=== PATIENT | female | born 1955 | race Caucasian/White ===

== ENCOUNTER 2017-06-17 15:40 | Emergency (ER) | payer OTHER ==
[~2017-06-17] VITALS: Ht 172.7 cm; Wt 106.0 kg
[~2017-06-17 15:40] MED LIST: ASPI81TA28 PO; BACL10TA PO; LEVO100T7 PO; LISD20CA PO; LPR25 PO; MILN50TA PO; PRAV20TA PO; SUMA100T16 PO; TIZA4CAP PO; TOPI50TA16 PO; TRAZ50TA35 PO
[2017-06-17 15:47] VITALS: TEMP 37.4; Ht 172.7 cm; Wt 106.0 kg
[2017-06-17] MEDS ORDERED: PROCHLORPERAZINE 5 MG/ML 2 ML VIAL IV STA (16:27)
[2017-06-17] MEDS ORDERED: MAGNESIUM SULFATE 1GM / D5W 1 GM BAG IV STA (16:27)
[2017-06-17] MEDS ORDERED: KETOROLAC TROMETHAMINE 30 MG/ML VIAL IV STA (16:27)
[2017-06-17] MEDS ORDERED: DiphenhydrAMINE HCL 50 MG/ML VIAL IV STA (16:27)
--- NOTE | 2017-06-17 16:29 | EMERGENCY ROOM VISIT NOTE ---
History Report prepared by Gianna: Fany Reyes Under the Supervision of: Dr. Maxx Sarmiento M.D. First contact with patient: 16:18 Chief Complaint: HEADACHE Stated Complaint: HEADACHE (8 FOR PAIN) ELEVATED BP- REFERRED History of Present Illness The patient is a 61 year old female who presents to the Emergency Room with complaints of a constant headache beginning a week ago. The patient rates her headache as a 8/10. The patient states she is in the process of being evaluated of chronic migraines. The patient will be inpatient at [facility] and will staying at [facility]. She states her headache is behind her left eye. The patient had an MRI of her head done 4 days ago where they found a lesion. The patient follows up with Dr. Gracia-Neurologist at [facility]. She was seen today for a stress test and her blood pressure was high and was referred to the ED. Source of History: patient Onset: a week ago Position: head Symptom Intensity: 8/10 Quality: ache Timing: constant Review of Systems See HPI for pertinent positives & negatives. A total of 10 systems reviewed and were otherwise negative. Past Medical & Surgical Medical Problems: (1) No pertinent past medical history Family History FHx: heart disease Social History Smoking Status: Never Smoker Alcohol Use: occasionally Drug Use: none Marital Status: Housing Status: lives with significant other Occupation Status: employed Current/Historical Medications Scheduled Coenzyme Q10 (Ubidecarenone) (Coq10), 200 MG PO DAILY Levothyroxine Sodium (Levothyroxine Sodium), 1 TAB PO DAILY Lisdexamfetamine Dimesylate (Vyvanse), 20 MG PO QAM Milnacipran Hcl (Savella), 50 MG PO BID Pravastatin (Pravachol ), 20 MG PO HS Pyridoxine (Vitamin B6), 100 MG PO DAILY Riboflavin (Vitamin B-2), 200 MG PO DAILY Tizanidine (Zanaflex), 8 MG PO HS Topiramate (Topamax), 150 MG PO HS Trazodone Hcl (Trazodone), 75 MG PO HS Scheduled PRN Baclofen (Lioresal), 10 MG PO TID PRN for headache Diclofenac Sodium (Topical) (Voltaren 1% Top Gel), 1 APPLN TOP UD PRN for Pain Diphenhydramine Hcl (Benadryl Allergy), 25 MG PO UD PRN for ALLERGIES Promethazine Hcl (Phenergan), 12.5 MG PO Q6H PRN for Nausea Tramadol (Ultram), 50 MG PO Q8H PRN for Headache [Midrin], 1 TAB PO UD PRN for Headache Allergies Coded Allergies: Cephalosporins (Verified Allergy, Unknown, RASH, 08/29/15) NSAIDs (Verified Allergy, Unknown, UNKNOWN, 08/29/15) Penicillins (Verified Allergy, Unknown, RASH, 08/29/15) Pregabalin (Unverified Adverse Reaction, Intermediate, DEPRESSION, ) Physical Exam Vital Signs Date Time Temp Pulse Resp B/P (MAP) Pulse Ox O2 Delivery O2 Flow Rate FiO2 06/17/17 20:00 77 20 164/91 99 06/17/17 19:09 74 06/17/17 18:29 78 158/91 98 Room Air 06/17/17 17:04 104 20 181/83 96 Room Air 06/17/17 15:47 37.4 107 16 179/93 100 Room Air Physical Exam GENERAL: Patient is a healthy-appearing well-nourished female HEAD: Normocephalic atraumatic. No evidence of meningitis or encephalitis. EYES: Ocular movements intact pupils equal and react to light OROPHARYNX mucous membranes are moist no exudates present no erythema or edema present NECK: Supple no nuchal rigidity CHEST: Good equal expansion LUNGS: Clear and equal to auscultation CARDIAC: Normal S1 and S2 ABDOMEN: Soft nontender no guarding BACK: No CVA tenderness EXTREMITIES: No pain upon palpation normal muscle strength in all groups no clubbing cyanosis or edema NEURO: Patient is following commands and answering questions appropriately. Alert and oriented x3 Cranial Nerves 2-12 grossly intact Medical Decision & Procedures Medications Administered Medications (Trade) Dose Ordered Sig/Mandeep Route Start Time Stop Time Status Last Admin Dose Admin Ketorolac Tromethamine (Toradol Inj) 30 mg NOW STAT IV 06/17/17 16:27 06/17/17 16:28 DC 06/17/17 16:56 30 MG Prochlorperazine Edisylate (Compazine Inj) 10 mg NOW STAT IV 06/17/17 16:27 06/17/17 16:28 DC 06/17/17 16:56 10 MG Diphenhydramine HCl (Benadryl Inj) 50 mg NOW STAT IV 06/17/17 16:27 06/17/17 16:28 DC 06/17/17 16:56 50 MG Magnesium Sulfate (Magnesium Sulfate) 1 gm NOW STAT IV 06/17/17 16:27 06/17/17 16:28 DC 06/17/17 16:56 1 GM Valproate Sodium 500 mg/Dextrose 55 ml @ 55 mls/hr NOW STAT IV 06/17/17 18:05 06/17/17 19:04 DC 06/17/17 18:34 55 MLS/HR Dexamethasone Sodium Phosphate 10 mg/Syringe 2.5 ml @ 1 mls/min NOW STAT IV 06/17/17 18:05 06/17/17 18:07 DC 06/17/17 18:34 1 MLS/MIN Ondansetron HCl (Zofran Inj) 4 mg NOW STAT IV 06/17/17 18:05 06/17/17 18:06 DC 06/17/17 18:34 4 MG ED Course 1620: Past medical records reviewed. The patient was evaluated in room C6. A complete history and physical examination was performed. 1627: Magnesium Sulfate 1 gm IV, Benadryl Inj 50 mg IV, Compazine Inj 10 mg IV, Toradol Inj 30 mg IV. 1706: I reevaluated the patient, she is resting comfortably. 1805: Zofran Inj 4 mg IV, Dexamethasone Sodium Phospate 10 mg/ Syringe 2.5 ml @ 1 mls/hr IV, Valproate Sodium 500 mg/Dextrose 55 ml @ 55 mls/hr IV. 1922: Upon reexamination the patient is resting. I discussed results and treatment plan with the patient. She verbalizes agreement and understanding. The patient is ready for discharge. Medical Decision Differential diagnosis: Etiologies such as migraine headache, meningitis, sinusitis, CO exposure, ICH, SAH, infection, tumor, headache, sinus thrombosis, arterial dissection, as well as others were entertained. This is a 61-year-old female who presents emergency department for pain control. The patient has a history of chronic migraines and presents to the emergency department to get her pain under control. She is currently being worked up by a migraine clinic in [place]. I will note she has no evidence of meningitis encephalitis on examination. The patient's most recent MRI which was performed within the past week was reviewed by myself. The patient's MRI is concerning for a meningioma. I do not feel that this is contributing to the patient's pain. An IV was established, the patient was given Toradol, Compazine, Benadryl. Repeat examination revealed some improvement the patient's symptoms. As the patient was still complaining of pain she was given Decadron as well as valproic acid. The patient was much improved at this point and I feel can be safely discharged home for follow-up with her primary care physician. Patient was in agreement with the treatment plan. Blood Pressure Screening Patient's blood pressure: Elevated blood pressure Blood pressure disposition: Referred to PCP Impression Primary Impression: Headache Scribe Attestation The scribe's documentation has been prepared under my direction and personally reviewed by me in its entirety. I confirm that the note above accurately reflects all work, treatment, procedures, and medical decision making performed by me. Departure Information Dispostion Home / Self-Care Referrals Michael Bermudez D.O. (PCP) Forms HOME CARE DOCUMENTATION FORM, IMPORTANT VISIT INFORMATION Patient Instructions Headaches Tension, My [facility] Additional Instructions You were found to have an elevated blood pressure today (>120 sytolic or >90 diastolic). Per medicare guidelines, you need to follow up with this blood pressure screening with your Primary Care Physician (PCP). For a new PCP call [phone]. You have been examined and treated today on an emergency basis only. This is not a substitute for, or an effort to provide, complete comprehensive medical care. It is impossible to recognize and treat all injuries or illnesses in a single emergency department visit. It is therefore important that you follow up closely with Dr Bermudez. Call as soon as possible for an appointment. Thank you for your time and consideration. I look forward to speaking with you again soon. Please don't hesitate to call us if you have any questions. Problem Qualifiers Primary Impression: Headache Headache type: unspecified Headache chronicity pattern: unspecified pattern Intractability: not intractable Qualified Codes: R51 - Headache
[2017-06-17] MEDS ORDERED: ONDANSETRON INJ 2 MG/ML 2 ML VIAL IV STA (18:05)
[2017-06-17] MEDS ORDERED: VALPROATE SOD IV 500 MG in DEXTROSE 5% 50ML 50 ML IV STA (18:05)
[2017-06-17] MEDS ORDERED: DEXAMETHASONE INJ 10 MG in SYRINGE 0 ML IV STA (18:05)
[2017-06-17] MEDS ORDERED: TRAM-10 PO (18:11)
[2017-06-17] MEDS ORDERED: DIPH1TAB87 PO (18:11)
[2017-06-17] MEDS ORDERED: VITB2100 PO (18:11)
[2017-06-17] MEDS ORDERED: COEN1CAP7 PO (18:11)
[2017-06-17] MEDS ORDERED: PROM12.56 PO (18:11)
[2017-06-17] MEDS ORDERED: DICL1GEL12 TOP (18:11)
[2017-06-17] MEDS ORDERED: MIDRIN PO (18:11)
[2017-06-17] MEDS ORDERED: PYRI100T4 PO (18:11)
[2017-06-17 20:00] VITALS: BP 164/91; PULSE 77; O2SAT 99
== END 2017-06-17 20:09 | disposition home or self-care (01) ==
LOC: C.EDB 15:41 → C.EDC 20:09
DX: R51 Headache (principal)

== ENCOUNTER 2017-06-19 22:43 | Emergency (ER) | payer OTHER ==
[~2017-06-19] VITALS: Ht 172.7 cm; Wt 108.0 kg
[~2017-06-19 22:43] MED LIST changes: -ASPI81TA28 PO; +COEN1CAP7 PO; +DICL1GEL12 TOP; +DIPH1TAB87 PO; -LPR25 PO; +MIDRIN PO; +PROM12.56 PO; +PYRI100T4 PO; -SUMA100T16 PO; +TRAM-10 PO; +VITB2100 PO
[2017-06-19 22:50] VITALS: Ht 172.7 cm; Wt 108.0 kg
[2017-06-19] MEDS ORDERED: SODIUM CHLORIDE 0.9% 1000ML 1,000 ML IV STA (23:10)
--- NOTE | 2017-06-19 23:20 | EMERGENCY ROOM VISIT NOTE ---
History Report prepared by Gianna: Diann Watson Under the Supervision of: Dr. Maxx Sarmiento M.D. First contact with patient: 23:04 Chief Complaint: HYPOTENSION Stated Complaint: LOW BLOOD PRESSURE History of Present Illness The patient is a 61 year old female who presents to the Emergency Room with complaints of an episode of hypotension starting tonight. The patient states that she started a beta rosanna yesterday and took her last dose 3 hours ago. She states that she woke up out of her sleep and felt "out of it." The patient states that when she took her blood pressure at home it was 66/43. The patient complains of feeling fatigued. She notes that she has been eating and drinking normally. She states that she has no headache more than her normal one. Source of History: patient Onset: tonight Position: other (global) Quality: other (feeling "out of it") Timing: other (episode) Associated Symptoms: + fatigue, No headache Review of Systems See HPI for pertinent positives & negatives. A total of 10 systems reviewed and were otherwise negative. Past Medical & Surgical Medical Problems: (1) No pertinent past medical history Family History FHx: heart disease Social History Smoking Status: Never Smoker Alcohol Use: occasionally Drug Use: none Marital Status: Housing Status: lives with significant other Occupation Status: employed Current/Historical Medications Scheduled Coenzyme Q10 (Ubidecarenone) (Coq10), 200 MG PO DAILY Levothyroxine Sodium (Levothyroxine Sodium), 1 TAB PO DAILY Metoprolol Tartrate (Lopressor) (Lopressor), 25 MG PO BID Milnacipran Hcl (Savella), 50 MG PO BID Pravastatin (Pravachol ), 20 MG PO HS Pyridoxine (Vitamin B6), 100 MG PO DAILY Riboflavin (Vitamin B-2), 200 MG PO DAILY Tizanidine (Zanaflex), 8 MG PO HS Topiramate (Topamax), 150 MG PO HS Trazodone Hcl (Trazodone), 75 MG PO HS Scheduled PRN Baclofen (Lioresal), 10 MG PO TID PRN for headache Diclofenac Sodium (Topical) (Voltaren 1% Top Gel), 1 APPLN TOP UD PRN for Pain Diphenhydramine Hcl (Benadryl Allergy), 25 MG PO UD PRN for ALLERGIES Promethazine Hcl (Phenergan), 12.5 MG PO Q6H PRN for Nausea Tramadol (Ultram), 50 MG PO Q8H PRN for Headache [Midrin], 1 TAB PO UD PRN for Headache Allergies Coded Allergies: Cephalosporins (Verified Allergy, Unknown, RASH, 06/19/17) NSAIDs (Verified Allergy, Unknown, UNKNOWN, 06/19/17) Penicillins (Verified Allergy, Unknown, RASH, 06/19/17) Pregabalin (Unverified Adverse Reaction, Intermediate, DEPRESSION, ) Physical Exam Vital Signs Date Time Temp Pulse Resp B/P (MAP) Pulse Ox O2 Delivery O2 Flow Rate FiO2 06/20/17 00:47 36.8 72 18 120/70 98 Room Air 06/20/17 00:06 65 18 86/52 98 Room Air 70 102/54 80 98/54 06/19/17 23:55 36.5 64 18 80/49 98 Room Air 06/19/17 23:40 98 Room Air 06/19/17 23:40 94 Room Air 06/19/17 23:12 68 06/19/17 23:00 69 18 71/52 06/19/17 22:50 36.5 80 20 78/51 97 Room Air Physical Exam GENERAL: Patient is a healthy-appearing well-nourished HEAD: Normocephalic atraumatic EYES: Ocular movements intact pupils equal and react to light OROPHARYNX mucous membranes are moist no exudates present no erythema or edema present NECK: Supple no nuchal rigidity, no evidence of meningitis or encephalitis on exam CHEST: Good equal expansion LUNGS: Clear and equal to auscultation CARDIAC: Normal S1 and S2 ABDOMEN: Soft nontender no guarding BACK: No CVA tenderness EXTREMITIES: No pain upon palpation normal muscle strength in all groups no clubbing cyanosis or edema NEURO: Patient is following commands and answering questions appropriately. Alert and oriented x3 Cranial Nerves 2-12 grossly intact Medical Decision & Procedures Laboratory Results 06/19/17 23:08 Red Blood Count 4.35, Mean Corpuscular Volume 91.0, Mean Corpuscular Hemoglobin 29.9, Mean Corpuscular Hemoglobin Concent 32.8, Mean Platelet Volume 9.3, Neutrophils (%) (Auto) 59.7, Lymphocytes (%) (Auto) 31.8, Monocytes (%) (Auto) 5.4, Eosinophils (%) (Auto) 2.5, Basophils (%) (Auto) 0.3, Neutrophils # (Auto) 5.94, Lymphocytes # (Auto) 3.16, Monocytes # (Auto) 0.54, Eosinophils # (Auto) 0.25, Basophils # (Auto) 0.03 06/19/17 23:08 Test 06/19/17 23:08 06/19/17 23:38 06/20/17 00:44 White Blood Count 9.95 K/uL (4.8-10.8) Red Blood Count 4.35 M/uL (4.2-5.4) Hemoglobin 13.0 g/dL (12.0-16.0) Hematocrit 39.6 % (37-47) Mean Corpuscular Volume 91.0 fL (80-100) Mean Corpuscular Hemoglobin 29.9 pg (25-34) Mean Corpuscular Hemoglobin Concent 32.8 g/dl (32-36) Platelet Count 265 K/uL (130-400) Mean Platelet Volume 9.3 fL (7.4-10.4) Neutrophils (%) (Auto) 59.7 % Lymphocytes (%) (Auto) 31.8 % Monocytes (%) (Auto) 5.4 % Eosinophils (%) (Auto) 2.5 % Basophils (%) (Auto) 0.3 % Neutrophils # (Auto) 5.94 K/uL (1.4-6.5) Lymphocytes # (Auto) 3.16 K/uL (1.2-3.4) Monocytes # (Auto) 0.54 K/uL (0.11-0.59) Eosinophils # (Auto) 0.25 K/uL (0-0.5) Basophils # (Auto) 0.03 K/uL (0-0.2) RDW Standard Deviation 47.1 fL (36.4-46.3) RDW Coefficient of Variation 14.2 % (11.5-14.5) Immature Granulocyte % (Auto) 0.3 % Immature Granulocyte # (Auto) 0.03 K/uL (0.00-0.02) Anion Gap 10.0 mmol/L (3-11) Est Creatinine Clear Calc Drug Dose 79.7 ml/min Estimated GFR () 75.8 Estimated GFR (Non- 65.4 BUN/Creatinine Ratio 24.3 (10-20) Calcium Level 8.3 mg/dl (8.5-10.1) Total Bilirubin 0.1 mg/dl (0.2-1) Direct Bilirubin mg/dl (0-0.2) Aspartate Amino Transf (AST/SGOT) 17 U/L (15-37) Alanine Aminotransferase (ALT/SGPT) 25 U/L (12-78) Alkaline Phosphatase 66 U/L (45-117) Total Creatine Kinase 49 U/L (26-192) Creatine Kinase MB 1.2 ng/ml (0.5-3.6) Creatine Kinase MB Ratio 2.4 (0-3.0) Troponin I < 0.015 ng/ml (0-0.045) Total Protein 6.3 gm/dl (6.4-8.2) Albumin 3.5 gm/dl (3.4-5.0) Thyroid Stimulating Hormone (TSH) 4.920 uIu/ml (0.300-4.500) Chemistry Specimen Hemolysis Bedside Glucose 103 mg/dl (70-90) Labs reviewed by ED physician. Medications Administered Medications (Trade) Dose Ordered Sig/Mandeep Route Start Time Stop Time Status Last Admin Dose Admin Sodium Chloride 1,000 ml @ 999 mls/hr Q1H1M STAT IV 06/19/17 23:10 06/20/17 00:10 DC 06/19/17 23:30 999 MLS/HR ED Course 2306: Past medical records reviewed. The patient was evaluated in room C5. A complete history and physical examination was performed. 2310: Ordered NSS 1000 ml @ 999 mls/hr IV. Medical Decision Etiologies such as metabolic, infection, hypo/hyperglycemia, electrolyte abnormalities, cardiac sources, intracerebral event, toxicologic, neurologic, as well as others were entertained. This is a 61-year-old female who presents emergency department complaining of hypotension. The patient was recently started on beta blockers by her primary care physician yesterday and she notes that when she was started on beta blockers in the past that she also had hypotension. She is afebrile has no signs of sepsis. She denies a headache. Based on these findings the patient was given normal saline bolus. Repeat examination revealed much improvement in the patient's symptoms. The patient was feeling much better and was able tolerate by mouth fluids. Based on this finding I felt that the patient was well enough to be discharged home for follow-up with her primary care physician. Patient was in agreement with the treatment plan. Impression Primary Impression: Hypotension due to drugs Scribe Attestation The scribe's documentation has been prepared under my direction and personally reviewed by me in its entirety. I confirm that the note above accurately reflects all work, treatment, procedures, and medical decision making performed by me. Departure Information Dispostion Home / Self-Care Referrals Michael Bermudez D.O. (PCP) Patient Instructions My [facility]
[2017-06-19] MEDS ORDERED: PRAV20TA PO (23:21)
[2017-06-19] MEDS ORDERED: METO25TA56 PO (23:23)
[2017-06-19 23:38] LABS: BASO % 0.3 %; BASO ABS # 0.03 K/uL (0-0.2); COMPLETE YES; EOS % 2.5 %; HEMATOCRIT 39.6 % (37-47); IG% 0.3 %; LYMPH % 31.8 %; LYMPH ABS # 3.16 K/uL (1.2-3.4); MEAN CORPUSCULAR HEMOGLOBIN 29.9 pg (25-34); MEAN CORPUSCULAR HGB CONC 32.8 g/dl (32-36); MEAN PLATELET VOLUME 9.3 fL (7.4-10.4); MONO % 5.4 %; NEUT % 59.7 %; PLATELET COUNT 265 K/uL (130-400); RED BLOOD COUNT 4.35 M/uL (4.2-5.4); WHITE BLOOD COUNT 9.95 K/uL (4.8-10.8)
[2017-06-19 23:40] VITALS: O2SAT 98
[2017-06-20 00:37] LABS: ALKALINE PHOSPHATASE 66 U/L (45-117); ALT/SGPT 25 U/L (12-78); AST/SGOT 17 U/L (15-37); BLOOD UREA NITROGEN 22 mg/dl (7-18); BUN/CREATININE RATIO 24.3 (10-20); CALCIUM 8.3 mg/dl (8.5-10.1); CARBON DIOXIDE 21 mmol/L (21-32); CHLORIDE 110 mmol/L (98-107); CKMB/CK RATIO 2.4 (0-3.0); CREATININE 0.93 mg/dl (0.60-1.20); GLUCOSE 108 mg/dl (70-99); POTASSIUM 4.2 mmol/L (3.5-5.1); SODIUM 141 mmol/L (136-145)
[2017-06-20 00:47] VITALS: BP 120/70; PULSE 72; TEMP 36.8; O2SAT 98
[2017-06-20 01:05] LABS: URINE APPEARANCE CLEAR (CLEAR); URINE BILIRUBIN NEG (NEG); URINE COLOR DK YELLOW; URINE EPITHELIAL CELL AUTO >30 /lpf (0-5); URINE NITRITE NEG (NEG); URINE PH 5.5 (4.5-7.5); URINE SPECIFIC GRAVITY 1.024 (1.000-1.030); UROBILINOGEN NEG (NEG)
[2017-06-20 01:06] LABS: MANUAL MICROSCOPIC REQUIRED? NO; REVIEW REQ? NO
--- NOTE | 2017-06-20 07:01 | DIAGNOSTIC IMAGING REPORT ---
CHEST ONE VIEW PORTABLE CLINICAL HISTORY: 61 years-old Female presenting with Pt c/o hypotension. TECHNIQUE: Portable upright AP view of the chest was obtained. COMPARISON: CT from 08/29/2015. FINDINGS: Cardiomediastinal silhouette normal. Mild prominence of the right paratracheal region near relate to prominent SVC. Minimal linear opacity at the left lung base. Otherwise lungs and pleural spaces clear. Postsurgical changes of the left glenoid. Upper abdomen normal. IMPRESSION: 1. Minimal left basilar atelectasis or scarring. Otherwise no acute cardiopulmonary disease. Electronically signed by: Aldo Stephenson M.D. 06/20/2017 7:00 AM Dictated Date/Time: 06/20/2017 6:58 AM
== END 2017-06-20 00:53 | disposition home or self-care (01) ==
LOC: C.EDB 22:44 → C.EDC 06-20 00:53
DX: I95.2 Hypotension due to drugs (principal); T44.7X5A Adverse effect of beta-adrenoreceptor antagonists, initial encounter; Z79.899 Other long term (current) drug therapy

== ENCOUNTER 2017-08-15 08:29 | Inpatient (IN) | payer OTHER ==
[~2017-08-15] VITALS: Ht 172.7 cm; Wt 106.5 kg
[~2017-08-15 08:29] MED LIST changes: -LISD20CA PO; +METO25TA56 PO; +PROM12.529 PO; -PROM12.56 PO
--- NOTE | 2017-08-15 10:09 | EMERGENCY ROOM VISIT NOTE ---
ED Visit Note First contact with patient: 08:42 I have seen and examined this patient with Amanda Grewal and generally agree with the treatment plan as discussed. Current/Historical Medications Scheduled Coenzyme Q10 (Ubidecarenone) (Coq10), 200 MG PO DAILY Levothyroxine Sodium (Levothyroxine Sodium), 1 TAB PO DAILY Metoprolol Tartrate (Lopressor) (Lopressor), 25 MG PO BID Milnacipran Hcl (Savella), 50 MG PO BID Pravastatin (Pravachol ), 20 MG PO HS Pyridoxine (Vitamin B6), 100 MG PO DAILY Riboflavin (Vitamin B-2), 200 MG PO DAILY Tizanidine (Zanaflex), 8 MG PO HS Topiramate (Topamax), 150 MG PO HS Trazodone Hcl (Trazodone), 75 MG PO HS Scheduled PRN Baclofen (Lioresal), 10 MG PO TID PRN for headache Diclofenac Sodium (Topical) (Voltaren 1% Top Gel), 1 APPLN TOP UD PRN for Pain Diphenhydramine Hcl (Benadryl Allergy), 25 MG PO UD PRN for ALLERGIES Promethazine Hcl (Phenergan), 12.5 MG PO Q6H PRN for Nausea Tramadol (Ultram), 50 MG PO Q8H PRN for Headache [Midrin], 1 TAB PO UD PRN for Headache Allergies Coded Allergies: Cephalosporins (Verified Allergy, Unknown, RASH, 08/15/17) NSAIDs (Verified Allergy, Unknown, UNKNOWN, 08/15/17) Penicillins (Verified Allergy, Unknown, RASH, 08/15/17) Pregabalin (Unverified Adverse Reaction, Intermediate, DEPRESSION, 08/15/17 ) Vital Signs Date Time Temp Pulse Resp B/P (MAP) Pulse Ox O2 Delivery O2 Flow Rate FiO2 08/15/17 08:32 37.2 98 18 184/101 99 Laboratory Results Test 08/15/17 09:14 08/15/17 09:35 Creatine Kinase MB Ratio (0-3.0) Departure Information Referrals Michael Bermudez D.O. (PCP) Patient Instructions My [facility]
[2017-08-15 10:29] LABS: CALCIUM 9.2 mg/dl (8.5-10.1); CREATININE 1.08 mg/dl (0.60-1.20); POTASSIUM 4.1 mmol/L (3.5-5.1)
--- NOTE | 2017-08-15 11:25 | DIAGNOSTIC IMAGING REPORT ---
RIGHT UPPER EXTREMITY VENOUS DOPPLER ULTRASOUND CLINICAL HISTORY: Right upper arm swelling. COMPARISON STUDY: No previous studies for comparison. TECHNIQUE: Sonography of the deep venous system of the right upper extremity was performed. FINDINGS: There is thrombus within the right subclavian, cephalic, axial, basilic and brachial veins. Visualized portions of the right internal jugular vein were patent. The right radial vein was patent. Right ulnar vein was not visualized. There was right upper extremity edema. IMPRESSION: Extensive deep venous thrombus within the right subclavian, axillary and brachial veins with superficial thrombus within the right cephalic and basilic veins. Electronically signed by: Galen Calle M.D. 08/15/2017 11:23 AM Dictated Date/Time: 08/15/2017 11:20 AM
[2017-08-15 11:43] LABS: BASO % 0.5 %; BASO ABS # 0.04 K/uL (0-0.2); EOS % 3.4 %; EOS ABS # 0.28 K/uL (0-0.5); HEMATOCRIT 40.4 % (37-47); HEMOGLOBIN 13.4 g/dL (12.0-16.0); IG# 0.03 K/uL (0.00-0.02); LYMPH % 20.6 %; LYMPH ABS # 1.71 K/uL (1.2-3.4); MEAN CELL VOLUME 90.8 fL (80-100); MEAN CORPUSCULAR HEMOGLOBIN 30.1 pg (25-34); MEAN CORPUSCULAR HGB CONC 33.2 g/dl (32-36); MEAN PLATELET VOLUME 9.4 fL (7.4-10.4); MONO % 9.8 %; MONO ABS # 0.81 K/uL (0.11-0.59); NEUT % 65.3 %; NEUT ABS # 5.43 K/uL (1.4-6.5); PLATELET COUNT 232 K/uL (130-400); RED CELL DISTRIBUTION WIDTH CV 13.9 % (11.5-14.5); RED CELL DISTRIBUTION WIDTH SD 45.9 fL (36.4-46.3)
[2017-08-15 11:45] LABS: PTT PATIENT 31.3 SECONDS (21.0-31.0)
[2017-08-15] MEDS ORDERED: HEPARIN SOD (PORCINE) 1000 UNIT/ML 10 ML VIAL IV ONE (12:00)
[2017-08-15] MEDS: HEPARIN 25,000 UNIT/500ML D5W 500 ML IV PRN (12:10)
[2017-08-15] MEDS ORDERED: CAND1TAB17 PO (12:49)
[2017-08-15] MEDS ORDERED: DIHY1INJ2 IM (12:49)
[2017-08-15] MEDS ORDERED: METO-157 PO (12:52)
[2017-08-15] MEDS ORDERED: MXT150 PO ×2 (12:56→12:58)
[2017-08-15] MEDS ORDERED: KETAMINE INTNAS (13:07)
[2017-08-15] MEDS ORDERED: CHOLCAP4 PO (13:07)
[2017-08-15] MEDS ORDERED: APIX1TAB3 PO (13:10)
[2017-08-15] MEDS ORDERED: ACETAMINOPHEN 325 MG TAB PO PRN (13:15)
[2017-08-15] MEDS ORDERED: MIDRIN PO PRN (13:15)
[2017-08-15] MEDS ORDERED: BACLOFEN 10 MG TAB PO PRN (13:15)
[2017-08-15] MEDS ORDERED: ONDANSETRON INJ 2 MG/ML 2 ML VIAL IV PRN (13:15)
[2017-08-15] MEDS ORDERED: MAGNESIUM HYDROXIDE SUSP 30 ML UDC PO PRN (13:15)
[2017-08-15] MEDS ORDERED: TRAMADOL HCL 50 MG TAB PO PRN (13:15)
[2017-08-15] MEDS ORDERED: PROMETHAZINE HCL 25 MG TAB PO PRN (13:15)
[2017-08-15] MEDS ORDERED: ALUMINUM/MAGNESIUM/SIMETH (MAALOX MAX) 30 ML UDC PO PRN (13:15)
--- NOTE | 2017-08-15 13:44 | History and Physical ---
History & Physical Date & Time of Service: Aug 15, 2017 at 13:12 Chief Complaint: R Hand/Arm Possible Blood Clot Dr Referred Primary Care Physician: Michael Bermudez D.O. History of Present Illness Source: patient, family, clinic records This is a 61 year old female with a PMH of migraines, fibromyalgia, hypothyroidism, depression/anxiety, chronic fatigue syndrome - presents with an acute DVT in RUE. She states that she was at a migraine clinic - inpatient for five days. At the clinic, they were trying IV DHEA, IV lidocaine, IV magnesium amongst other medications for her chronic migraines. Due to all these IV medications, she had a PICC line placed for the five days she was there. She had this removed prior to discharge and was doing well until yesterday, when she developed RUE swelling, and pain. [facility] [place] [facility] RUE U/S performed showing an acute DVT in the basilar, brachial, axillary and subclavian veins. She was given Eliquis and discharged. She comes to the ER today due to worsening pain and worsening swelling/erythema. Denies fevers/ chills. Denies chest pain/shortness of breath. No other acute issues to note. U/S was performed here - showing progressive DVTs in the RUE. Family History FHx: heart disease Social History Smoking Status: Never Smoker Drug Use: none Marital Status: Occupational Status: employed Allergies Coded Allergies: Cephalosporins (Verified Allergy, Unknown, RASH, 08/15/17) NSAIDs (Verified Allergy, Unknown, UNKNOWN, 08/15/17) Penicillins (Verified Allergy, Unknown, RASH, 08/15/17) Pregabalin (Unverified Adverse Reaction, Intermediate, DEPRESSION, 08/15/17 ) Home Medications Scheduled Apixaban (Eliquis), 10 MG PO BID Candesartan Cilexetil (Candesartan Cilexetil), 4 MG PO DAILY Cholecalciferol (Maximum D3), 1 CAP PO DAILY Coenzyme Q10 (Ubidecarenone) (Coq10), 200 MG PO DAILY Levothyroxine Sodium (Levothyroxine Sodium), 1 TAB PO DAILY Metoprolol Tartrate (Lopressor) (Lopressor), 25 MG PO BID Mexiletine Hcl (Mexiletine Hcl), 150 MG PO BID Mexiletine Hcl (Mexiletine Hcl), 150 MG PO TID Milnacipran Hcl (Savella), 50 MG PO BID Pravastatin (Pravachol ), 20 MG PO HS Pyridoxine (Vitamin B6), 100 MG PO DAILY Riboflavin (Vitamin B-2), 200 MG PO DAILY Tizanidine (Zanaflex), 8 MG PO HS Topiramate (Topamax), 150 MG PO HS Trazodone Hcl (Trazodone), 75 MG PO HS Scheduled PRN Baclofen (Lioresal), 10 MG PO BID PRN for headache Diclofenac Sodium (Topical) (Voltaren 1% Top Gel), 1 APPLN TOP UD PRN for Pain Dihydroergotamine Mesylate (Dihydroergotamine Mesylat), 1 MG IM UD PRN for Headache Diphenhydramine Hcl (Benadryl Allergy), 25 MG PO UD PRN for ALLERGIES Metoclopramide (Reglan), 10 MG PO TID PRN for Headache Promethazine Hcl (Phenergan), 12.5 MG PO Q6H PRN for Nausea Tramadol (Ultram), 50 MG PO Q8H PRN for Headache [Midrin], 1 TAB PO UD PRN for Headache [ketamine nasal spray], 1 SPRAY INTNAS UD PRN for Headache Review of Systems Constitutional: No fever, No chills, No weakness Eyes: No worsening of vision ENT: No hearing loss Respiratory: No cough, No sputum, No wheezing, No shortness of breath, No dyspnea on exertion, No dyspnea at rest, No hemoptysis Cardiovascular: No chest pain, No orthopnea, No edema, No palpitations Abdomen: No pain, No nausea, No vomiting, No diarrhea, No constipation, No GI bleeding Musculoskeletal: + joint pain, + muscle pain, + swelling (RUE) Genitourinary - Female: No dysuria, No urinary frequency, No urinary urgency, No urinary incontinence, No urinary retention Neurologic: No weakness, No numbness/tingling, No vertigo Psychiatric: No depression symptoms, No anxiety, No insomnia Hematologic / Lymphatic: No abnormal bleeding/bruising Integumentary: + new/changing skin lesions (redness - RUE), No rash Allergic / Immunologic: No environmental allergies, No seasonal allergies Physical Exam Vital Signs Date Time Temp Pulse Resp B/P (MAP) Pulse Ox O2 Delivery O2 Flow Rate FiO2 08/15/17 12:01 82 08/15/17 11:50 83 20 139/71 100 Room Air 08/15/17 08:32 37.2 98 18 184/101 99 General Appearance: no apparent distress Head: normocephalic, atraumatic Eyes: normal inspection ENT: hearing grossly normal Neck: supple Respiratory/Chest: chest non-tender, lungs clear, normal breath sounds, no respiratory distress, no accessory muscle use Cardiovascular: regular rate, rhythm, no gallop, no JVD, normal peripheral pulses, + systolic murmur Abdomen/GI: normal bowel sounds, non tender, soft Extremities/Musculoskelatal: no pedal edema, + pertinent finding (RUE, swelling , erythema, edema noted in the medial portion of the R elbow below the PICC line site) Neurologic/Psych: assistant editor 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, no motor/sensory deficits, alert, normal mood/affect, oriented x 3 Diagnostics Laboratory Results Results Past 24 Hours Test 08/15/17 09:35 Range/Units White Blood Count 8.30 4.8-10.8 K/uL Red Blood Count 4.45 4.2-5.4 M/uL Hemoglobin 13.4 12.0-16.0 g/dL Hematocrit 40.4 37-47 % Mean Corpuscular Volume 90.8 80-100 fL Mean Corpuscular Hemoglobin 30.1 25-34 pg Mean Corpuscular Hemoglobin Concent 33.2 32-36 g/dl Platelet Count 232 130-400 K/uL Mean Platelet Volume 9.4 7.4-10.4 fL Neutrophils (%) (Auto) 65.3 % Lymphocytes (%) (Auto) 20.6 % Monocytes (%) (Auto) 9.8 % Eosinophils (%) (Auto) 3.4 % Basophils (%) (Auto) 0.5 % Neutrophils # (Auto) 5.43 1.4-6.5 K/uL Lymphocytes # (Auto) 1.71 1.2-3.4 K/uL Monocytes # (Auto) 0.81 0.11-0.59 K/uL Eosinophils # (Auto) 0.28 0-0.5 K/uL Basophils # (Auto) 0.04 0-0.2 K/uL RDW Standard Deviation 45.9 36.4-46.3 fL RDW Coefficient of Variation 13.9 11.5-14.5 % Immature Granulocyte % (Auto) 0.4 % Immature Granulocyte # (Auto) 0.03 0.00-0.02 K/uL Prothrombin Time 10.8 9.0-12.0 SECONDS Prothromb Time International Ratio 1.0 0.9-1.1 Activated Partial Thromboplast Time 31.3 21.0-31.0 SECONDS Partial Thromboplastin Ratio 1.2 Sodium Level 138 136-145 mmol/L Potassium Level 4.1 3.5-5.1 mmol/L Chloride Level 107 98-107 mmol/L Carbon Dioxide Level 23 21-32 mmol/L Anion Gap 8.0 3-11 mmol/L Blood Urea Nitrogen 13 7-18 mg/dl Creatinine 1.08 0.60-1.20 mg/dl Est Creatinine Clear Calc Drug Dose 68.4 ml/min Estimated GFR () 63.3 Estimated GFR (Non- 54.6 BUN/Creatinine Ratio 12.0 10-20 Random Glucose 103 70-99 mg/dl Calcium Level 9.2 8.5-10.1 mg/dl Total Creatine Kinase 62 26-192 U/L Creatine Kinase MB 1.0 0.5-3.6 ng/ml Creatine Kinase MB Ratio 1.6 0-3.0 Microbiology Results 08/15/17 Blood Culture, Ordered Pending 08/15/17 Blood Culture, Ordered Pending Diagnostic Radiology RIGHT UPPER EXTREMITY VENOUS DOPPLER ULTRASOUND CLINICAL HISTORY: Right upper arm swelling. COMPARISON STUDY: No previous studies for comparison. TECHNIQUE: Sonography of the deep venous system of the right upper extremity was performed. FINDINGS: There is thrombus within the right subclavian, cephalic, axial, basilic and brachial veins. Visualized portions of the right internal jugular vein were patent. The right radial vein was patent. Right ulnar vein was not visualized. There was right upper extremity edema. IMPRESSION: Extensive deep venous thrombus within the right subclavian, axillary and brachial veins with superficial thrombus within the right cephalic and basilic veins. Impression Assessment and Plan This is a 61 year old female with a PMH of migraines, fibromyalgia, hypothyroidism, depression/anxiety, chronic fatigue syndrome - presents with an acute DVT in RUE. Acute R Upper Extremity DVT patient received 10mg of Eliqius on 08/14 PM and 08/15 AM returned due to worsening pain and swelling Repeat Doppler today suggests progression of DVT started on IV heparin which we can continue; possibly back to Eliquis in AM oral tramadol for pain (try to minimize opioid use due to rebound migraines) Cellulitis secondary to Superficial Thrombophlebitis of the R Upper Extremity Doppler suggests superficial thrombus within the right cephalic and basilic veins appears warm and tender to palpation likely cellulitis of the thrombophlebitis either way, we will check blood cultures x2 start IV Vanco for now (PCN and cephalosporin allergy noted) Migraines patient is on a new regimen for migraines, which we can continue will need to bring in a lot of medications from home; pharmacy aware HTN patient states she is too sensitive to b-blockers metoprolol discontinued by patient at home we'll try low dose amlodipine for blood pressure and some migraine prophylaxis Hypothyroidism continue Synthroid 100mcg DVT ppx IV heparin for acute DVT FULL CODE
[2017-08-15] MEDS ORDERED: NON-FORMULARY MEDICATION (Mexiletine Hcl 150 MG) PO SCH (14:00)
[2017-08-15] MEDS ORDERED: VANCOMYCIN CONSULT ACTIVE PRN (14:45)
[2017-08-15] MEDS ORDERED: VANCOMYCIN INJ 2,500 MG in SODIUM CHLORIDE 0.9% 250ML 250 ML IV ONE (14:45)
--- NOTE | 2017-08-15 14:56 | Pharmacy Progress Note ---
Pharmacy Abx Initial Consult Date of Service Aug 15, 2017. Pharmacy Dosing Scope Date of Consult: 08/15/17 Consultation requested by: Dr. Huber Pharmacy is consulted to initiate Vancomycin IV dosing therapy, order appropriate labs and adjust drug dose/frequency. Subjective The patient is a 61 year old female admitted on Aug 15, 2017 at 13:12. Objective Height (Feet): 5 Height (Inches): 8.00 Weight (Kilograms): 107.400 Vital Signs (Past 12Hrs) Vital Signs Past 12 Hours Date Time Temp Pulse Resp B/P (MAP) Pulse Ox O2 Delivery O2 Flow Rate FiO2 08/15/17 13:48 87 15 152/87 99 Room Air 08/15/17 12:01 82 08/15/17 11:50 83 20 139/71 100 Room Air 08/15/17 08:32 37.2 98 18 184/101 99 Lab Results (24Hrs) Laboratory Tests (24 Hours) Test 08/15/17 09:35 White Blood Count 8.30 K/uL (4.8-10.8) Red Blood Count 4.45 M/uL (4.2-5.4) Hemoglobin 13.4 g/dL (12.0-16.0) Hematocrit 40.4 % (37-47) Mean Corpuscular Volume 90.8 fL (80-100) Mean Corpuscular Hemoglobin 30.1 pg (25-34) Mean Corpuscular Hemoglobin Concent 33.2 g/dl (32-36) Platelet Count 232 K/uL (130-400) Mean Platelet Volume 9.4 fL (7.4-10.4) Neutrophils (%) (Auto) 65.3 % Lymphocytes (%) (Auto) 20.6 % Monocytes (%) (Auto) 9.8 % Eosinophils (%) (Auto) 3.4 % Basophils (%) (Auto) 0.5 % Neutrophils # (Auto) 5.43 K/uL (1.4-6.5) Lymphocytes # (Auto) 1.71 K/uL (1.2-3.4) Monocytes # (Auto) 0.81 K/uL (0.11-0.59) H Eosinophils # (Auto) 0.28 K/uL (0-0.5) Basophils # (Auto) 0.04 K/uL (0-0.2) Total Creatine Kinase 62 U/L (26-192) Micro Results Date/Time Source Procedure Growth Status 08/15/17 12:31 Blood Blood Culture Pending Ordered 118 12:31 Blood Blood Culture Pending Ordered Assessment & Plan Assessment 61 year old female admitted with cellulitis secondary to superficial thrombophlebitis of RUE. Pt reports h/o rash with penicillins and cephalosporins. Plan Vancomycin IV * Loading dose: 2500 mg (23.2 mg/kg) * Maintenance dose: 1500 mg IV (14 mg/kg) every 12 hours * Goal trough level for cellulitis : 15 to 20 mcg/mL Pharmacy will continue to follow and will adjust dose/frequency as necessary. Thank you.
[2017-08-15] MEDS ORDERED: VANCOMYCIN INJ 2,500 MG in SODIUM CHLORIDE 0.9% 500ML 500 ML IV ONE (15:00)
[2017-08-15 15:05] VITALS: BP 152/87; PULSE 74; TEMP 37.2; Ht 172.7 cm; Wt 106.5 kg
[2017-08-15 15:07] VITALS: BP 169/80; PULSE 101; TEMP 36.6; O2SAT 97
[2017-08-15] MEDS ORDERED: VANCOMYCIN TROUGH ONE (15:30)
[2017-08-15 18:40] LABS: PTT PATIENT 47.9 SECONDS (21.0-31.0)
[2017-08-15] MEDS ORDERED: [UNRECOGNIZED DRUG - OTHER] PRN (18:45)
[2017-08-15] MEDS: MEXILETINE HCL 150 MG CAP PO SCH (21:00)
[2017-08-15] MEDS ORDERED: METOPROLOL TARTRATE 25 MG TAB PO SCH (21:00)
[2017-08-15] MEDS: MILNACIPRAN HCL 50 MG PO SCH (21:00)
[2017-08-15] MEDS: PRAVASTATIN SOD 20 MG TAB PO SCH (21:07)
[2017-08-15] MEDS: TOPIRAMATE 100 MG TAB PO SCH (21:08)
[2017-08-15] MEDS: TRAZODONE HCL 50 MG TAB PO SCH (21:09)
[2017-08-15 22:27] VITALS: BP 142/81; PULSE 88; TEMP 37.2; O2SAT 96
[2017-08-15 22:59] VITALS: BP 96/60; PULSE 81; TEMP 36.5; O2SAT 96
[2017-08-16] MEDS ORDERED: VANCOMYCIN INJ 1,500 MG in SODIUM CHLORIDE 0.9% 500ML 500 ML IV SCH (04:00)
[2017-08-16] MEDS: HEPARIN 25,000 UNIT/500ML D5W 500 ML IV PRN ×4 (04:36→23:48)
[2017-08-16] MEDS: LEVOTHYROXINE 100 MCG TAB PO SCH (04:36)
[2017-08-16 08:02] VITALS: BP 155/89; PULSE 81; TEMP 36.7; O2SAT 99
[2017-08-16] MEDS: MEXILETINE HCL 150 MG CAP PO SCH ×2 (08:33→20:29)
[2017-08-16] MEDS: AMLODIPINE BESYLATE 5 MG TAB PO SCH ×3 (08:34→09:00)
[2017-08-16] MEDS: MILNACIPRAN HCL 50 MG PO SCH ×2 (08:34→20:21)
[2017-08-16] MEDS: CHOLECALCIFEROL 1000 INTER.UNIT TAB PO SCH (08:35)
[2017-08-16 08:40] LABS: HEMATOCRIT 39.7 % (37-47); HEMOGLOBIN 13.2 g/dL (12.0-16.0); MEAN CELL VOLUME 91.1 fL (80-100); MEAN CORPUSCULAR HEMOGLOBIN 30.3 pg (25-34); MEAN CORPUSCULAR HGB CONC 33.2 g/dl (32-36); MEAN PLATELET VOLUME 9.1 fL (7.4-10.4); PLATELET COUNT 205 K/uL (130-400); RED CELL DISTRIBUTION WIDTH CV 13.9 % (11.5-14.5); RED CELL DISTRIBUTION WIDTH SD 45.8 fL (36.4-46.3); WHITE BLOOD COUNT 7.51 K/uL (4.8-10.8)
[2017-08-16] MEDS ORDERED: NON-FORMULARY MEDICATION (Riboflavin (Vitamin B-2) 200 MG) PO SCH (09:00)
[2017-08-16] MEDS ORDERED: NON-FORMULARY MEDICATION (Coenzyme Q10 (Ubidecarenone) (Coq10) 200 MG) PO SCH (09:00)
[2017-08-16] MEDS ORDERED: PYRIDOXINE HCL 50 MG TAB PO SCH (09:00)
[2017-08-16 09:05] LABS: PTT PATIENT 73.7 SECONDS (21.0-31.0)
[2017-08-16 09:10] LABS: CALCIUM 8.8 mg/dl (8.5-10.1); CREATININE 0.94 mg/dl (0.60-1.20); POTASSIUM 3.7 mmol/L (3.5-5.1)
[2017-08-16 15:34] VITALS: BP 184/91; PULSE 91; TEMP 37.2; O2SAT 95
[2017-08-16 15:40] VITALS: O2SAT 95
--- NOTE | 2017-08-16 15:49 | Progress Note ---
Internal Med Progress Note Date of Service: Aug 16, 2017. Provider Documentation: SUBJECTIVE: The patient was seen and examined Admitted with worsening thrombosis of the right UE Has associated Phlebitis A little better OBJECTIVE: Vital Signs-as noted below Exam: General-No distress at rest Very anxious Eyes-normal ENT-normal Neck-supple Lungs-Clear to ausucltate bilaterally Heart-Regular,no murmur Abdomen-Benign,no masses,bowel sound present Extremities-No edema Right UE is swollen with minimal redness and tenderness along the medial aspect of the arm Neuro-AAOx3 Lab data as noted below. ASSESSMENT & PLAN: This is a 61 year old female with a PMH of migraines, fibromyalgia, hypothyroidism, depression/anxiety, chronic fatigue syndrome - presents with an acute DVT in RUE. Acute R Upper Extremity DVT patient received 10mg of Eliqius on 08/14 PM and 08/15 AM Repeat Doppler today suggests progression of DVT started on IV heparin oral tramadol for pain (try to minimize opioid use due to rebound migraines) Very anxious to have Eliquis without having any antidote Wants to take Coumadin -will discuss with her and decide Superficial Thrombophlebitis of the R Upper Extremity Doppler suggests superficial thrombus within the right cephalic and basilic veins appears warm and tender to palpation likely cellulitis of the thrombophlebitis either way, we will check blood cultures x2 start IV Vanco for now (PCN and cephalosporin allergy noted) D/C Vanco Anti-inflammatory will be helpful and clinically better Migraines patient is on a new regimen for migraines, which we can continue will need to bring in a lot of medications from home; pharmacy aware HTN Anxiety is contributing to increase BP patient states she is too sensitive to b-blockers we'll try low dose amlodipine for blood pressure and some migraine prophylaxis if bp is persistently high will start medication Hypothyroidism continue Synthroid 100mcg DVT ppx IV heparin for acute DVT FULL CODE Vital Signs: Date Time Temp Pulse Resp B/P (MAP) Pulse Ox O2 Delivery O2 Flow Rate FiO2 08/16/17 15:34 37.2 91 19 184/91 (122) 95 Room Air 08/16/17 08:02 36.7 81 19 155/89 (111) 99 Room Air 08/16/17 07:55 Room Air 08/16/17 00:00 Room Air 1/12/18 22:27 37.2 88 18 142/81 (101) 96 Room Air Lab Results: Results Past 24 Hours Test 08/15/17 18:09 08/16/17 08:30 08/16/17 15:36 Range/Units Activated Partial Thromboplast Time 47.9 73.7 21.0-31.0 SECONDS Partial Thromboplastin Ratio 1.8 2.8 White Blood Count 7.51 4.8-10.8 K/uL Red Blood Count 4.36 4.2-5.4 M/uL Hemoglobin 13.2 12.0-16.0 g/dL Hematocrit 39.7 37-47 % Mean Corpuscular Volume 91.1 80-100 fL Mean Corpuscular Hemoglobin 30.3 25-34 pg Mean Corpuscular Hemoglobin Concent 33.2 32-36 g/dl RDW Standard Deviation 45.8 36.4-46.3 fL RDW Coefficient of Variation 13.9 11.5-14.5 % Platelet Count 205 130-400 K/uL Mean Platelet Volume 9.1 7.4-10.4 fL Prothrombin Time 10.7 9.0-12.0 SECONDS Prothromb Time International Ratio 1.0 0.9-1.1 Sodium Level 140 136-145 mmol/L Potassium Level 3.7 3.5-5.1 mmol/L Chloride Level 110 98-107 mmol/L Carbon Dioxide Level 21 21-32 mmol/L Anion Gap 9.0 3-11 mmol/L Blood Urea Nitrogen 13 7-18 mg/dl Creatinine 0.94 0.60-1.20 mg/dl Est Creatinine Clear Calc Drug Dose 78.3 ml/min Estimated GFR () 74.8 Estimated GFR (Non- 64.6 BUN/Creatinine Ratio 13.4 10-20 Random Glucose 134 70-99 mg/dl Calcium Level 8.8 8.5-10.1 mg/dl Magnesium Level 2.1 1.8-2.4 mg/dl
[2017-08-16] MEDS: PRAVASTATIN SOD 20 MG TAB PO SCH (20:20)
[2017-08-16] MEDS: TOPIRAMATE 100 MG TAB PO SCH (20:22)
[2017-08-16] MEDS: TRAZODONE HCL 50 MG TAB PO SCH (20:26)
[2017-08-16 22:59] VITALS: BP 96/60; PULSE 81; TEMP 36.5; O2SAT 96
[2017-08-17] MEDS: LEVOTHYROXINE 100 MCG TAB PO SCH (05:59)
[2017-08-17 08:02] VITALS: BP 145/85; PULSE 77; TEMP 36.9; O2SAT 99
[2017-08-17] MEDS: MEXILETINE HCL 150 MG CAP PO SCH ×2 (08:41→14:10)
[2017-08-17] MEDS: AMLODIPINE BESYLATE 5 MG TAB PO SCH (08:42)
[2017-08-17] MEDS: MILNACIPRAN HCL 50 MG PO SCH (08:42)
[2017-08-17] MEDS: CHOLECALCIFEROL 1000 INTER.UNIT TAB PO SCH (08:43)
[2017-08-17 09:47] LABS: HEMATOCRIT 40.8 % (37-47); HEMOGLOBIN 13.6 g/dL (12.0-16.0); MEAN CELL VOLUME 89.9 fL (80-100); MEAN PLATELET VOLUME 9.1 fL (7.4-10.4); PLATELET COUNT 200 K/uL (130-400); RED CELL DISTRIBUTION WIDTH CV 13.6 % (11.5-14.5); RED CELL DISTRIBUTION WIDTH SD 44.9 fL (36.4-46.3); WHITE BLOOD COUNT 8.66 K/uL (4.8-10.8)
[2017-08-17 09:49] LABS: MEAN CORPUSCULAR HGB CONC 33.3 g/dl (32-36)
[2017-08-17 10:07] LABS: PTT PATIENT 65.6 SECONDS (21.0-31.0)
[2017-08-17 10:16] LABS: CALCIUM 9.1 mg/dl (8.5-10.1); CREATININE 0.94 mg/dl (0.60-1.20); POTASSIUM 3.9 mmol/L (3.5-5.1)
[2017-08-17 12:19] LABS: ALBUMIN 3.4 gm/dl (3.4-5.0); ALKALINE PHOSPHATASE 79 U/L (45-117); ALT/SGPT 22 U/L (12-78); AST/SGOT 14 U/L (15-37); TOTAL PROTEIN 6.8 gm/dl (6.4-8.2)
--- NOTE | 2017-08-17 14:07 | Progress Note ---
Internal Med Progress Note Date of Service: Aug 17, 2017. Provider Documentation: SUBJECTIVE: The patient was seen and examined Admitted with worsening thrombosis of the right UE Has associated Phlebitis Right Upper Extremity is much better Swelling and Pain are better Decided to take Pradaxa OBJECTIVE: Vital Signs-as noted below Exam: General-No distress at rest Very anxious Eyes-normal ENT-normal Neck-supple Lungs-Clear to ausucltate bilaterally Heart-Regular,no murmur Abdomen-Benign,no masses,bowel sound present Extremities-No edema Right UE is swollen with minimal redness and tenderness along the medial aspect of the arm -much improved Neuro-AAOx3 Lab data as noted below. ASSESSMENT & PLAN: This is a 61 year old female with a PMH of migraines, fibromyalgia, hypothyroidism, depression/anxiety, chronic fatigue syndrome - presents with an acute DVT in RUE. Acute R Upper Extremity DVT-Likely provoked patient received 10mg of Eliqius on 11 PM and 08/15 AM Repeat Doppler today suggests progression of DVT started on IV heparin oral tramadol for pain (try to minimize opioid use due to rebound migraines) Very anxious to have Eliquis without having any antidote Wants to take Coumadin -will discuss with her and decide Decided to take Pradaxa Case discussed with Dr Rivera and the Pharmacist and the patient in detailed Side effects porphine and risk associated with bleeding discussed in detailed Patient agrees to continue with Pradaxa Given the extensiveness of the clot -Hypercoagulable w/p sent Superficial Thrombophlebitis of the R Upper Extremity Doppler suggests superficial thrombus within the right cephalic and basilic veins appears warm and tender to palpation likely cellulitis of the thrombophlebitis either way, we will check blood cultures x2 start IV Vanco for now (PCN and cephalosporin allergy noted) D/C Vanco Anti-inflammatory will be helpful and clinically better Migraines patient is on a new regimen for migraines, which we can continue will need to bring in a lot of medications from home; pharmacy aware HTN Anxiety is contributing to increase BP patient states she is too sensitive to b-blockers we'll try low dose amlodipine for blood pressure and some migraine prophylaxis if bp is persistently high will start medication Hypothyroidism continue Synthroid 100mcg DVT ppx IV heparin for acute DVT FULL CODE Discharge home today Vital Signs: Date Time Temp Pulse Resp B/P (MAP) Pulse Ox O2 Delivery O2 Flow Rate FiO2 08/17/17 08:02 36.9 77 18 145/85 (105) 99 Room Air 08/17/17 07:45 Room Air 08/16/17 23:45 Room Air 08/16/17 22:59 36.5 81 16 96/60 (72) 96 Room Air 08/16/17 15:40 95 Room Air 08/16/17 15:34 37.2 91 19 184/91 (122) 95 Room Air Lab Results: Results Past 24 Hours Test 08/16/17 15:36 08/17/17 09:39 08/17/17 11:29 Range/Units Activated Partial Thromboplast Time 56.0 65.6 21.0-31.0 SECONDS Partial Thromboplastin Ratio 2.2 2.5 White Blood Count 8.66 4.8-10.8 K/uL Red Blood Count 4.54 4.2-5.4 M/uL Hemoglobin 13.6 12.0-16.0 g/dL Hematocrit 40.8 37-47 % Mean Corpuscular Volume 89.9 80-100 fL Mean Corpuscular Hemoglobin 30.0 25-34 pg Mean Corpuscular Hemoglobin Concent 33.3 32-36 g/dl RDW Standard Deviation 44.9 36.4-46.3 fL RDW Coefficient of Variation 13.6 11.5-14.5 % Platelet Count 200 130-400 K/uL Mean Platelet Volume 9.1 7.4-10.4 fL Sodium Level 140 136-145 mmol/L Potassium Level 3.9 3.5-5.1 mmol/L Chloride Level 109 98-107 mmol/L Carbon Dioxide Level 22 21-32 mmol/L Anion Gap 9.0 3-11 mmol/L Blood Urea Nitrogen 10 7-18 mg/dl Creatinine 0.94 0.60-1.20 mg/dl Est Creatinine Clear Calc Drug Dose 78.3 ml/min Estimated GFR () 74.8 Estimated GFR (Non- 64.6 BUN/Creatinine Ratio 10.8 10-20 Random Glucose 86 70-99 mg/dl Calcium Level 9.1 8.5-10.1 mg/dl Total Bilirubin 0.3 0.2-1 mg/dl Direct Bilirubin < 0.1 0-0.2 mg/dl Aspartate Amino Transf (AST/SGOT) 14 15-37 U/L Alanine Aminotransferase (ALT/SGPT) 22 12-78 U/L Alkaline Phosphatase 79 45-117 U/L Total Protein 6.8 6.4-8.2 gm/dl Albumin 3.4 3.4-5.0 gm/dl
[2017-08-17 15:00] VITALS: BP 159/85; PULSE 97; TEMP 37; O2SAT 96
[2017-08-17] MEDS ORDERED: VANCOMYCIN TROUGH ONE (15:30)
[2017-08-17] MEDS ORDERED: DABI150C PO (15:46)
[2017-08-17] MEDS ORDERED: DABIGATRAN ELEXILATE 75 MG CAP PO ONE ×2 (15:48→15:51)
--- NOTE | 2017-08-17 15:48 | Discharge Instructions ---
Discharge Instructions Date of Service Aug 17, 2017. Admission Reason for Admission: Acute Deep Vein Thrombosis Discharge Discharge Diagnosis / Problem: RUE DVT Discharge Goals Goal(s): Prevent Disease Progression Activity Recommendations Activity Limitations: resume your previous activity . Instructions / Follow-Up Instructions / Follow-Up Please make an appointment with your PCP in 1 week Current Hospital Diet Patient's current hospital diet: Regular Diet Discharge Diet Recommended Diet: Regular Diet Pending Studies Studies pending at discharge: no Laboratory Results Hypercoagulable W/U results -pending Medical Emergencies . Who to Call and When: Medical Emergencies: If at any time you feel your situation is an emergency, please call 911 immediately. . Non-Emergent Contact Non-Emergency issues call your: Primary Care Provider . Past History Medical & Surgical History: (1) Acute deep vein thrombosis (DVT) . "Provider Documentation" section prepared by Olga Partida. . VTE Core Measure Inpt VTE Proph given/why not?: Unfractionated heparin SQ (Pradaxa), Other Anticoagulation
[2017-08-17 16:03] VITALS: BP 159/85; PULSE 97; TEMP 37; O2SAT 96
[2017-08-17] MEDS ORDERED: DABIGATRAN ELEXILATE 75 MG CAP PO SCH ×2 (21:00)
--- NOTE | 2017-08-18 07:58 | Discharge Summary ---
Discharge Summary Date of Service Aug 18, 2017. Discharge Summary Admission Date: Aug 15, 2017 at 1:12 pm Discharge Date: Aug 17, 2017 Discharge Disposition: Home Principal Diagnosis: Acute Deep Vein Thrombosis of the right upper Extremity Secondary Diagnoses/Problems: Please see H&P and Hospital Progress note Medication Reconciliation New Medications: Dabigatran Etexilate Mesylate (Pradaxa) 150 Mg Cap 1 CAP PO BID for 30 Days, #60 CAP 5 Refills Continued Medications: Baclofen (Lioresal) 10 Mg Tab 10 MG PO BID PRN for headache, TAB 1-2 tablets by mouth twice a day as needed for head and neck pain Candesartan Cilexetil (Candesartan Cilexetil) 4 Mg Tab 4 MG PO DAILY Cholecalciferol (Maximum D3) 10,000 Unit Cap 1 CAP PO DAILY for 84 Days, #12 CAP 3 Refills Dihydroergotamine Mesylate (Dihydroergotamine Mesylat) 1 Mg/Ml Inj 1 MG IM UD PRN for Headache 1 mg IM prn severe headache. May repeat in 2 hours. Max 2 per day, Max 2 days per week. Diphenhydramine Hcl (Benadryl Allergy) 25 Mg Tab 25 MG PO UD PRN for ALLERGIES Levothyroxine Sodium (Levothyroxine Sodium) 100 Mcg Tab 1 TAB PO DAILY for 30 Days, #30 TAB 5 Refills Metoclopramide (Reglan) 10 Mg Tab 10 MG PO TID PRN for Headache, TAB Mexiletine Hcl (Mexiletine Hcl) 150 Mg Cap 150 MG PO BID for 5 Days Mexiletine Hcl (Mexiletine Hcl) 150 Mg Cap 150 MG PO TID Milnacipran Hcl (Savella) 50 Mg Tab 50 MG PO BID for 30 Days, #60 TAB 2 Refills Pravastatin (Pravachol ) 20 Mg Tab 20 MG PO HS, TAB Tizanidine (Zanaflex) 4 Mg Cap 8 MG PO HS, CAP 1-2 tablets by mouth at bedtime Topiramate (Topamax) 50 Mg Tab 150 MG PO HS, 0 Refills Trazodone Hcl (Trazodone) 50 Mg Tab 75 MG PO HS, TAB [ketamine nasal spray] () 100 mg/ml 1 SPRAY INTNAS UD PRN for Headache Apply 1-2 sprays intranasally every 15 minutes as needed for headache. Max 20 sprays (2mL) per day and 40 sprays per week Discontinued Medications: Apixaban (Eliquis) 5 Mg Tab 10 MG PO BID for 7 Days, #28 TAB Admission Information HPI (per Admitting provider): This is a 61 year old female with a PMH of migraines, fibromyalgia, hypothyroidism, depression/anxiety, chronic fatigue syndrome - presents with an acute DVT in RUE. She states that she was at a migraine clinic - inpatient for five days. At the clinic, they were trying IV DHEA, IV lidocaine, IV magnesium amongst other medications for her chronic migraines. Due to all these IV medications, she had a PICC line placed for the five days she was there. She had this removed prior to discharge and was doing well until yesterday, when she developed RUE swelling, and pain. [facility] [place] [facility] had RUE U/S performed showing an acute DVT in the basilar, brachial, axillary and subclavian veins. She was given Eliquis and discharged. She comes to the ER today due to worsening pain and worsening swelling/erythema. Denies fevers/ chills. Denies chest pain/shortness of breath. No other acute issues to note. U/S was performed here - showing progressive DVTs in the RUE. Family History FHx: heart disease Social History Smoking Status: Never Smoker Drug Use: none Marital Status: Occupational Status: employed Allergies Coded Allergies: Cephalosporins (Verified Allergy, Unknown, RASH, 08/15/17) NSAIDs (Verified Allergy, Unknown, UNKNOWN, 08/15/17) Penicillins (Verified Allergy, Unknown, RASH, 08/15/17) Pregabalin (Unverified Adverse Reaction, Intermediate, DEPRESSION, 08/15/17 ) Home Medications Scheduled Apixaban (Eliquis), 10 MG PO BID Candesartan Cilexetil (Candesartan Cilexetil), 4 MG PO DAILY Cholecalciferol (Maximum D3), 1 CAP PO DAILY Coenzyme Q10 (Ubidecarenone) (Coq10), 200 MG PO DAILY Levothyroxine Sodium (Levothyroxine Sodium), 1 TAB PO DAILY Metoprolol Tartrate (Lopressor) (Lopressor), 25 MG PO BID Mexiletine Hcl (Mexiletine Hcl), 150 MG PO BID Mexiletine Hcl (Mexiletine Hcl), 150 MG PO TID Milnacipran Hcl (Savella), 50 MG PO BID Pravastatin (Pravachol ), 20 MG PO HS Pyridoxine (Vitamin B6), 100 MG PO DAILY Riboflavin (Vitamin B-2), 200 MG PO DAILY Tizanidine (Zanaflex), 8 MG PO HS Topiramate (Topamax), 150 MG PO HS Trazodone Hcl (Trazodone), 75 MG PO HS Scheduled PRN Baclofen (Lioresal), 10 MG PO BID PRN for headache Diclofenac Sodium (Topical) (Voltaren 1% Top Gel), 1 APPLN TOP UD PRN for Pain Dihydroergotamine Mesylate (Dihydroergotamine Mesylat), 1 MG IM UD PRN for Headache Diphenhydramine Hcl (Benadryl Allergy), 25 MG PO UD PRN for ALLERGIES Metoclopramide (Reglan), 10 MG PO TID PRN for Headache Promethazine Hcl (Phenergan), 12.5 MG PO Q6H PRN for Nausea Tramadol (Ultram), 50 MG PO Q8H PRN for Headache [Midrin], 1 TAB PO UD PRN for Headache [ketamine nasal spray], 1 SPRAY INTNAS UD PRN for Headache Review of Systems Constitutional: No fever, No chills, No weakness Eyes: No worsening of vision ENT: No hearing loss Respiratory: No cough, No sputum, No wheezing, No shortness of breath, No dyspnea on exertion, No dyspnea at rest, No hemoptysis Cardiovascular: No chest pain, No orthopnea, No edema, No palpitations Abdomen: No pain, No nausea, No vomiting, No diarrhea, No constipation, No GI bleeding Musculoskeletal: + joint pain, + muscle pain, + swelling (RUE) Genitourinary - Female: No dysuria, No urinary frequency, No urinary urgency, No urinary incontinence, No urinary retention Neurologic: No weakness, No numbness/tingling, No vertigo Psychiatric: No depression symptoms, No anxiety, No insomnia Hematologic / Lymphatic: No abnormal bleeding/bruising Integumentary: + new/changing skin lesions (redness - RUE), No rash Allergic / Immunologic: No environmental allergies, No seasonal allergies Physical Ex - H&P Physical Exam Vital Signs Date Time Temp Pulse Resp B/P (MAP) Pulse Ox O2 Delivery O2 Flow Rate FiO2 1/12/18 12:01 82 08/15/17 11:50 83 20 139/71 100 Room Air 08/15/17 08:32 37.2 98 18 184/101 99 General Appearance: no apparent distress Head: normocephalic, atraumatic Eyes: normal inspection ENT: hearing grossly normal Neck: supple Respiratory/Chest: chest non-tender, lungs clear, normal breath sounds, no respiratory distress, no accessory muscle use Cardiovascular: regular rate, rhythm, no gallop, no JVD, normal peripheral pulses, + systolic murmur Abdomen/GI: normal bowel sounds, non tender, soft Extremities/Musculoskelatal: no pedal edema, + pertinent finding (RUE, swelling , erythema, edema noted in the medial portion of the R elbow below the PICC line site) Neurologic/Psych: stitcher operator 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, no motor/sensory deficits, alert, normal mood/affect, oriented x 3 Diagnostics - H&P Diagnostics Laboratory Results Results Past 24 Hours Test 08/15/17 09:35 Range/Units White Blood Count 8.30 4.8-10.8 K/uL Red Blood Count 4.45 4.2-5.4 M/uL Hemoglobin 13.4 12.0-16.0 g/dL Hematocrit 40.4 37-47 % Mean Corpuscular Volume 90.8 80-100 fL Mean Corpuscular Hemoglobin 30.1 25-34 pg Mean Corpuscular Hemoglobin Concent 33.2 32-36 g/dl Platelet Count 232 130-400 K/uL Mean Platelet Volume 9.4 7.4-10.4 fL Neutrophils (%) (Auto) 65.3 % Lymphocytes (%) (Auto) 20.6 % Monocytes (%) (Auto) 9.8 % Eosinophils (%) (Auto) 3.4 % Basophils (%) (Auto) 0.5 % Neutrophils # (Auto) 5.43 1.4-6.5 K/uL Lymphocytes # (Auto) 1.71 1.2-3.4 K/uL Monocytes # (Auto) 0.81 0.11-0.59 K/uL Eosinophils # (Auto) 0.28 0-0.5 K/uL Basophils # (Auto) 0.04 0-0.2 K/uL RDW Standard Deviation 45.9 36.4-46.3 fL RDW Coefficient of Variation 13.9 11.5-14.5 % Immature Granulocyte % (Auto) 0.4 % Immature Granulocyte # (Auto) 0.03 0.00-0.02 K/uL Prothrombin Time 10.8 9.0-12.0 SECONDS Prothromb Time International Ratio 1.0 0.9-1.1 Activated Partial Thromboplast Time 31.3 21.0-31.0 SECONDS Partial Thromboplastin Ratio 1.2 Sodium Level 138 136-145 mmol/L Potassium Level 4.1 3.5-5.1 mmol/L Chloride Level 107 98-107 mmol/L Carbon Dioxide Level 23 21-32 mmol/L Anion Gap 8.0 3-11 mmol/L Blood Urea Nitrogen 13 7-18 mg/dl Creatinine 1.08 0.60-1.20 mg/dl Est Creatinine Clear Calc Drug Dose 68.4 ml/min Estimated GFR () 63.3 Estimated GFR (Non- 54.6 BUN/Creatinine Ratio 12.0 10-20 Random Glucose 103 70-99 mg/dl Calcium Level 9.2 8.5-10.1 mg/dl Total Creatine Kinase 62 26-192 U/L Creatine Kinase MB 1.0 0.5-3.6 ng/ml Creatine Kinase MB Ratio 1.6 0-3.0 Microbiology Results 08/15/17 Blood Culture, Ordered Pending 08/15/17 Blood Culture, Ordered Pending Diagnostic Radiology RIGHT UPPER EXTREMITY VENOUS DOPPLER ULTRASOUND CLINICAL HISTORY: Right upper arm swelling. COMPARISON STUDY: No previous studies for comparison. TECHNIQUE: Sonography of the deep venous system of the right upper extremity was performed. FINDINGS: There is thrombus within the right subclavian, cephalic, axial, basilic and brachial veins. Visualized portions of the right internal jugular vein were patent. The right radial vein was patent. Right ulnar vein was not visualized. There was right upper extremity edema. IMPRESSION: Extensive deep venous thrombus within the right subclavian, axillary and brachial veins with superficial thrombus within the right cephalic and basilic veins. Impression - H&P Impression Assessment and Plan This is a 61 year old female with a PMH of migraines, fibromyalgia, hypothyroidism, depression/anxiety, chronic fatigue syndrome - presents with an acute DVT in RUE. Acute R Upper Extremity DVT patient received 10mg of Eliqius on 08/14 PM and 08/15 AM returned due to worsening pain and swelling Repeat Doppler today suggests progression of DVT started on IV heparin which we can continue; possibly back to Eliquis in AM oral tramadol for pain (try to minimize opioid use due to rebound migraines) Cellulitis secondary to Superficial Thrombophlebitis of the R Upper Extremity Doppler suggests superficial thrombus within the right cephalic and basilic veins appears warm and tender to palpation likely cellulitis of the thrombophlebitis either way, we will check blood cultures x2 start IV Vanco for now (PCN and cephalosporin allergy noted) Migraines patient is on a new regimen for migraines, which we can continue will need to bring in a lot of medications from home; pharmacy aware HTN patient states she is too sensitive to b-blockers metoprolol discontinued by patient at home we'll try low dose amlodipine for blood pressure and some migraine prophylaxis Hypothyroidism continue Synthroid 100mcg DVT ppx IV heparin for acute DVT FULL CODE Physical Exam (per Admitting): General Appearance: no apparent distress Head: normocephalic, atraumatic Eyes: normal inspection ENT: hearing grossly normal Neck: supple Respiratory/Chest: chest non-tender, lungs clear, normal breath sounds, no respiratory distress, no accessory muscle use Cardiovascular: regular rate, rhythm, no gallop, no JVD, normal peripheral pulses, + systolic murmur Abdomen/GI: normal bowel sounds, non tender, soft Extremities/Musculoskelatal: no pedal edema, + pertinent finding (RUE, swelling, erythema, edema noted in the medial portion of the R elbow below the PICC line site) Neurologic/Psych: 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 Acute R Upper Extremity DVT-Likely provoked patient received 10mg of Eliqius on 08/14 PM and 08/15 AM Repeat Doppler today suggests progression of DVT started on IV heparin oral tramadol for pain (try to minimize opioid use due to rebound migraines) Very anxious to have Eliquis without having any antidote Wants to take Coumadin -will discuss with her and decide Decided to take Pradaxa Case discussed with Dr Lumedu and the Pharmacist and the patient in detailed Side effects porphine and risk associated with bleeding discussed in detailed Patient agrees to continue with Pradaxa Given the extensiveness of the clot -Hypercoagulable w/p sent Superficial Thrombophlebitis of the R Upper Extremity Doppler suggests superficial thrombus within the right cephalic and basilic veins appears warm and tender to palpation likely cellulitis of the thrombophlebitis either way, we will check blood cultures x2 start IV Vanco for now (PCN and cephalosporin allergy noted) D/C Vanco Anti-inflammatory will be helpful and clinically better Migraines patient is on a new regimen for migraines, which we can continue will need to bring in a lot of medications from home; pharmacy aware HTN Anxiety is contributing to increase BP patient states she is too sensitive to b-blockers we'll try low dose amlodipine for blood pressure and some migraine prophylaxis if bp is persistently high will start medication Hypothyroidism continue Synthroid 100mcg DVT ppx IV heparin for acute DVT FULL CODE Discharge home today Total time spent on discharge = 35 minutes This includes examination of the patient, discharge planning, medication reconciliation, and communication with other providers. Discharge Instructions Date of Service Aug 17, 2017. Admission Reason for Admission: Acute Deep Vein Thrombosis Discharge Discharge Diagnosis / Problem: RUE DVT Discharge Goals Goal(s): Prevent Disease Progression Activity Recommendations Activity Limitations: resume your previous activity . Instructions / Follow-Up Instructions / Follow-Up Please make an appointment with your PCP in 1 week Current Hospital Diet Patient's current hospital diet: Regular Diet Discharge Diet Recommended Diet: Regular Diet Pending Studies Studies pending at discharge: no Laboratory Results Hypercoagulable W/U results -pending Medical Emergencies . Who to Call and When: Medical Emergencies: If at any time you feel your situation is an emergency, please call 911 immediately. . Non-Emergent Contact Non-Emergency issues call your: Primary Care Provider . Past History Medical & Surgical History: (1) Acute deep vein thrombosis (DVT) . "Provider Documentation" section prepared by Olga Partida. . VTE Core Measure Inpt VTE Proph given/why not?: Unfractionated heparin SQ (Pradaxa), Other Anticoagulation <Electronically signed by Olga Partida M.D.> Signed: 08/17/17 [id number] Additional Copies To Michael Bermudez D.O.
--- NOTE | 2017-08-19 13:25 | EDITING REQUIRED CODING QUERY ---
CODING QUERY To promote full compliance with coding requirements relating to patient care, provider participation is requested in all cases of light technician uncertainty. Please assist us with the question(s) below: Coding Question(s): There is documentation of the patient having had a PICC line in place for five days and removed recently before admission as well as documentation of Acute R Upper Extremity DVT - Likely Provoked. Please clarify below regarding the Acute R Upper Extremity DVT. ( ) Acute Right Upper Extremity DVT - Likely Provoked - This is a complication from the recent PICC line ( + ) Acute Right Upper Extremity DVT - Likely Provoked- This is from other: Specify_Likely due to placement of PICC line but Hypercoagulability has to be excluded. ( ) Acute Right Upper Extremity DVT - Likely Provoked - This is provoked by unknown likely source Physician's Response(s): Thank you Caren Jackson Principal Diagnosis: "_that condition established after study, to be chiefly responsible for occasioning the admission of the patient to the hospital for care." Co-Existing Principal Diagnosis: "_when two or more diagnoses equally meet the criteria for principal diagnosis as determined by the circumstances of admission, diagnostic work up, and/or therapy provided, and the Alphabetic Index, Tabular List, or another coding guideline does not provide sequencing direction, any one of the diagnoses may be sequenced first." "When the physician has documented what appears to be a current diagnosis in the body of the record, but has not included the diagnosis in the final diagnostic statement, the physician should be asked whether the diagnosis should be added." ([facility] 2 QTR90. p3-4)
[2017-08-21 18:36] LABS: ANTICARDIOLIPID AB IGA <11 APL (< = 11)
--- NOTE | 2017-08-22 12:20 | EDITING REQUIRED CODING QUERY ---
CODING QUERY To promote full compliance with coding requirements relating to patient care, provider participation is requested in all cases of environmental studies faculty member uncertainty. Please assist us with the question(s) below: Coding Question(s): On the previous query you had answered regarding the likely source(s) of the Acute Right Upper Extremity DVT - Likely Provoked. Thank you for your answer of being likely due to placement of PICC line but Hypercoagulability has to be excluded. Please clarify below regarding the likely source of the possible Hypercoagulability. ( ) Possible Hypercoagulability likely caused from the anticoagulant use - Eliquis ( ) Possible Hypercoagulability likely caused by other - Specify: ( + ) Possible Hypercoagulability with unknown likely cause/source. The results of the Hypercoagulable work up will show if any. Physician's Response(s): Thank you Caren Jackson Principal Diagnosis: "_that condition established after study, to be chiefly responsible for occasioning the admission of the patient to the hospital for care." Co-Existing Principal Diagnosis: "_when two or more diagnoses equally meet the criteria for principal diagnosis as determined by the circumstances of admission, diagnostic work up, and/or therapy provided, and the Alphabetic Index, Tabular List, or another coding guideline does not provide sequencing direction, any one of the diagnoses may be sequenced first." "When the physician has documented what appears to be a current diagnosis in the body of the record, but has not included the diagnosis in the final diagnostic statement, the physician should be asked whether the diagnosis should be added." ([facility] 2 QTR90. p3-4)
--- NOTE | 2017-08-25 14:05 | EMERGENCY ROOM VISIT NOTE ---
History First contact with patient: 08:42 Chief Complaint: SWELLING TO EXTREMITY Stated Complaint: R HAND/ARM POSSIBLE BLOOD CLOT REFERRED History of Present Illness The patient is a 61 year old female who presents to the Emergency Room with complaints of right arm redness and swelling. The patient was hospitalized in [place] headache clinic at the [facility] for migraines. They had difficulty accessing her basophils the PICC line in her right arm. She was discharged on Friday from the hospital. Yesterday she started with some pain in her right forearm and in her hand. She went to the urgent care at [facility] yesterday in [place] and was diagnosed with a DVT in her right arm. She was then sent to the anticoagulation clinic and was placed on Eliquist. She took 2 tablets last night into this morning. The patient states today she does not have any pain in the forearm or hand but has redness and swelling on the proximal medial aspect of the forearm. The patient states she has tingling of her right hand but is able to move her fingers without any difficulty. The patient denies any chest pain or any shortness of breath. Review of Systems 10 system review was performed and was negative unless stated otherwise history of present illness. Past Medical/Surgical History Medical Problems: (1) Acute deep vein thrombosis (DVT) (2) No pertinent past medical history DVT right arm Family History FHx: heart disease Social History Smoking Status: Never Smoker Alcohol Use: occasionally Drug Use: none Marital Status: Housing Status: lives with significant other Occupation Status: employed Current/Historical Medications Scheduled Candesartan Cilexetil (Candesartan Cilexetil), 4 MG PO DAILY Cholecalciferol (Maximum D3), 1 CAP PO DAILY Dabigatran Etexilate Mesylate (Pradaxa), 1 CAP PO BID Levothyroxine Sodium (Levothyroxine Sodium), 1 TAB PO DAILY Mexiletine Hcl (Mexiletine Hcl), 150 MG PO BID Mexiletine Hcl (Mexiletine Hcl), 150 MG PO TID Milnacipran Hcl (Savella), 50 MG PO BID Pravastatin (Pravachol ), 20 MG PO HS Tizanidine (Zanaflex), 8 MG PO HS Topiramate (Topamax), 150 MG PO HS Trazodone Hcl (Trazodone), 75 MG PO HS Scheduled PRN Baclofen (Lioresal), 10 MG PO BID PRN for headache Dihydroergotamine Mesylate (Dihydroergotamine Mesylat), 1 MG IM UD PRN for Headache Diphenhydramine Hcl (Benadryl Allergy), 25 MG PO UD PRN for ALLERGIES Metoclopramide (Reglan), 10 MG PO TID PRN for Headache [ketamine nasal spray], 1 SPRAY INTNAS UD PRN for Headache Physical Exam Vital Signs Date Time Temp Pulse Resp B/P (MAP) Pulse Ox O2 Delivery O2 Flow Rate FiO2 08/15/17 12:01 82 08/15/17 11:50 83 20 139/71 100 Room Air 08/15/17 08:32 37.2 98 18 184/101 99 Physical Exam GENERAL: 61-year-old white female appears in no acute distress. MENTAL Status: Alert and oriented 3. NECK: Supple, no lymphadenopathy noted. No carotid bruits noted. LUNGS: Clear auscultation without wheezes rales or rhonchi. CARDIAC: Regular rate and rhythm without murmur occasional ectopy. Pulses is full and equal throughout. RIGHT ARM: The patient has multiple bruises noted on the right arm. There is erythema and edema and increased temperature to touch over the medial proximal aspect of the forearm extending to the medial aspect of the elbow. Radial pulses 2+. I cannot palpate an ulnar pulse. The patient is able to move her fingers without difficulty. Sensation is intact. Medical Decision & Procedures ER Provider Diagnostic Interpretation: RIGHT UPPER EXTREMITY VENOUS DOPPLER ULTRASOUND CLINICAL HISTORY: Right upper arm swelling. COMPARISON STUDY: No previous studies for comparison. TECHNIQUE: Sonography of the deep venous system of the right upper extremity was performed. FINDINGS: There is thrombus within the right subclavian, cephalic, axial, basilic and brachial veins. Visualized portions of the right internal jugular vein were patent. The right radial vein was patent. Right ulnar vein was not visualized. There was right upper extremity edema. IMPRESSION: Extensive deep venous thrombus within the right subclavian, axillary and brachial veins with superficial thrombus within the right cephalic and basilic veins. Electronically signed by: Galen Calle M.D. 08/15/2017 11:23 AM Dictated Date/Time: 08/15/2017 11:20 AM Laboratory Results Test 08/15/17 09:35 Immature Granulocyte % (Auto) 0.4 % White Blood Count 8.30 K/uL (4.8-10.8) Red Blood Count 4.45 M/uL (4.2-5.4) Hemoglobin 13.4 g/dL (12.0-16.0) Hematocrit 40.4 % (37-47) Mean Corpuscular Volume 90.8 fL (80-100) Mean Corpuscular Hemoglobin 30.1 pg (25-34) Mean Corpuscular Hemoglobin Concent 33.2 g/dl (32-36) Platelet Count 232 K/uL (130-400) Mean Platelet Volume 9.4 fL (7.4-10.4) Neutrophils (%) (Auto) 65.3 % Lymphocytes (%) (Auto) 20.6 % Monocytes (%) (Auto) 9.8 % Eosinophils (%) (Auto) 3.4 % Basophils (%) (Auto) 0.5 % Neutrophils # (Auto) 5.43 K/uL (1.4-6.5) Lymphocytes # (Auto) 1.71 K/uL (1.2-3.4) Monocytes # (Auto) 0.81 K/uL (0.11-0.59) Eosinophils # (Auto) 0.28 K/uL (0-0.5) Basophils # (Auto) 0.04 K/uL (0-0.2) Immature Granulocyte # (Auto) 0.03 K/uL (0.00-0.02) Total Creatine Kinase 62 U/L (26-192) Creatine Kinase MB 1.0 ng/ml (0.5-3.6) Creatine Kinase MB Ratio 1.6 (0-3.0) Medications Administered Medications (Trade) Dose Ordered Sig/Mandeep Route Start Time Stop Time Status Last Admin Dose Admin Heparin Sodium/ Dextrose 500 ml @ 27 mls/hr [id number] PRN IV 08/15/17 12:00 08/17/17 16:10 DC 08/16/17 23:48 27 MLS/HR Heparin Sodium (Porcine) (Heparin Iv Bolus) 6,000 unit NOW ONCE IV 08/15/17 12:00 08/15/17 12:01 DC 08/15/17 12:10 6,000 UNIT ED Course The patient was evaluated. The patient's EMR medication list were reviewed. I got the medical records from the [facility] at [place]. The ultrasound revealed intraluminal thrombus evident in the right basilar, brachial, axillary and subclavian veins consistent with acute DVT. The right jugular, cephalic, radial and ulnar veins are patent. IV access was obtained. CBC and differential, coags, renal profile was ordered. Repeat venous Doppler of the right upper extremity was ordered and interpreted by the radiologist as above with a progressive more extensive DVT in multiple veins in the right upper extremity. INR was 1.0. CBC and differential and renal profile was unremarkable. The patient was informed of the findings. The patient's case was discussed with Dr. Sarmiento and was in agreement with treatment plan. Standard heparin drip was ordered. The hospitalist was consulted for admission.. Medical Decision Differential diagnosis include cellulitis, superficial phlebitis, worsening DVT [place] Drug Monitoring Program Search Results: patient reviewed within database Medication Reconcilliation Current Medication List: was personally reviewed by me Blood Pressure Screening Patient's blood pressure: Elevated blood pressure Impression Primary Impression: Deep vein thrombosis (DVT) of right upper extremity Departure Information Dispostion Being Evaluated By Hospitalist Condition GOOD Prescriptions Dabigatran Etexilate Mesylate (PRADAXA) 150 Mg Cap 1 CAP PO BID for 30 Days, #60 CAP 5 Refills Prov: Olga Partida M.D. 08/17/17 Referrals Michael Bermudez D.O. (PCP) Patient Instructions [facility]
== END 2017-08-17 16:45 | disposition home or self-care (01) | DRG 315 ==
LOC: C.EDB 08:32 → C.MS2W 13:12 → ENRESERV 13:20
PROVIDERS: ADMIT Family Medicine; ATTEND Internal Medicine
DX: T82.868A Thrombosis due to vascular prosthetic devices, implants and grafts, initial encounter (principal); D68.59 Other primary thrombophilia; I82.621 Acute embolism and thrombosis of deep veins of right upper extremity; L03.113 Cellulitis of right upper limb; I80.8 Phlebitis and thrombophlebitis of other sites; R53.82 Chronic fatigue, unspecified; M79.7 Fibromyalgia; G43.909 Migraine, unspecified, not intractable, without status migrainosus; E03.9 Hypothyroidism, unspecified; I10 Essential (primary) hypertension; F32.9 Major depressive disorder, single episode, unspecified; F41.9 Anxiety disorder, unspecified; Z51.81 Encounter for therapeutic drug level monitoring; Z79.899 Other long term (current) drug therapy; Y83.8 Other surgical procedures as the cause of abnormal reaction of the patient, or of later complication, without mention of misadventure at the time of the procedure

== ENCOUNTER → 2017-11-06 | Outpatient (CLI) | payer OTHER ==
[~2017-11-06] MED LIST changes: +CAND1TAB17 PO; +CHOLCAP4 PO; -COEN1CAP7 PO; +DABI150C PO; -DICL1GEL12 TOP; +DIHY1INJ2 IM; +KETAMINE INTNAS; +METO-157 PO; -METO25TA56 PO; -MIDRIN PO; +MXT150 PO; -PROM12.529 PO; -PYRI100T4 PO; -TRAM-10 PO; -VITB2100 PO
--- NOTE | 2017-11-07 15:38 | MAMMOGRAPHY REPORT ---
BILATERAL DIGITAL SCREENING MAMMOGRAM TOMOSYNTHESIS WITH CAD: 11/06/2017 CLINICAL HISTORY: Routine screening. TECHNIQUE: Breast tomosynthesis in addition to standard 2D mammography was performed. Current study was also evaluated with a Computer Aided Detection (CAD) system. COMPARISON: Comparison is made to exams dated: 06/14/2016 mammogram, 12/20/2014 mammogram, 07/30/2013 mammogram, 03/05/2012 mammogram, 01/03/2011 mammogram, and 03/16/2012 mammogram - [facility] enter. BREAST COMPOSITION: There are scattered areas of fibroglandular density in both breasts. FINDINGS: No suspicious masses, calcifications, or areas of architectural distortion are noted in ei ther breast. There has been no significant interval change compared to prior exams. Scattered bilater al benign-appearing calcifications are not significantly changed. Bilateral asymmetries are stable. IMPRESSION: ACR BI-RADS CATEGORY 2: BENIGN There is no mammographic evidence of malignancy. A 1 year screening mammogram is recommended. The pa tient will receive written notification of the results. Approximately 10% of breast cancers are not detected with mammography. A negative mammographic report should not delay biopsy if a clinically suggestive mass is present. Concha Green M.D. /:11/06/2017 15:27:09 Business Unit Leader: Minnie ARITA)(M), [facility] letter sent: Normal 1/2 BI-RADS Code: ACR BI-RADS Category 2: Benign
== END | disposition home or self-care (01) ==
LOC: C.MAMM 14:50
PROVIDERS: ATTEND Family Medicine
DX: Z12.31 Encounter for screening mammogram for malignant neoplasm of breast (principal)

== ENCOUNTER 2022-11-20 04:19 | Inpatient (IN) ==
[2022-11-20] MEDS ORDERED: ONDANSETRON INJ 2 MG/ML 2 ML VIAL IV STA ×2 (05:32→06:48)
[2022-11-20 05:47] LABS: Basophils # (auto) 0.02 K/uL (0-0.2); Basophils % (auto) 0.3 %; Eosinophils # (auto) 0.02 K/uL (0-0.50); Eosinophils % (auto) 0.3 %; Hematocrit (blood only) 46.5 % (37.0-47.0); Hemoglobin 15.4 g/dl (12.0-16.0); Immature Granulocytes # (auto) 0.02 K/uL (0.01-0.20); Immature Granulocytes % (auto) 0.3 %; Lymphocytes # (auto) 1.23 K/uL (1.2-3.4); Lymphocytes % (auto) 16.6 %; Mean Corpuscular Hemoglobin 29.9 pg (25.0-34.0); Mean Corpuscular Hgb Conc 33.1 g/dL (32.0-36.0); Mean Corpuscular Volume 90.3 fL (80.0-100.0); Mean Platelet Volume 8.9 fL (9.4-12.4); Monocytes # (auto) 0.44 K/uL (0.11-0.59); Neutrophils # (auto) 5.66 K/uL (1.40-6.50); Neutrophils % (auto) 76.5 %; Platelet Count 270 K/uL (130-400); RDW Standard Deviation 43.2 fL (36.4-46.3); Red Blood Count 5.15 M/uL (4.20-5.40); White Blood Count 7.39 K/ul (4.8-10.8)
[2022-11-20 06:02] LABS: Albumin Globulin Ratio 1.3 (0.9-2); Albumin Level 4.3 gm/dl (3.4-5.0); BUN Creatinine Ratio 14.3 (10-20); Bilirubin,Total 0.9 mg/dl (0.2-1.0); Calcium 9.6 mg/dl (8.6-10.3); Creatinine Clr Calc Pharmacy 61.6 ml/min; Est GFR (African American) 68.2 ml/min; Est GFR (Non-African American) 58.9 ml/min; Globulin 3.2 gm/dl (2.5-4.0); Potassium 3.7 mmol/L (3.5-5.1); Total Protein 7.5 gm/dl (6.0-8.3)
[2022-11-20] MEDS ORDERED: MoRPHine SULFATE 4 MG/ML 1 ML CARP\\VIAL IV STA ×2 (06:48→08:50)
[2022-11-20] MEDS ORDERED: SODIUM CHLORIDE 0.9% 1000ML 1,000 ML IV ONE (06:49)
--- NOTE | 2022-11-20 06:50 | Emergency Department Note ---
Impression & Plan Abnormal transaminases ADMIT ED Provider Note HPI: The patient is a 67-year-old female who presents emergency department chief complaint of upper abdominal pain that has been ongoing since about 11:30 PM yesterday. Patient states that she has had nausea but she has not had any vomiting. On arrival here to the ED the patient is hemodynamically stable, does complain of some upper abdominal pain on arrival, denies any chest pain or shortness of breath. Patient denies any recent diarrhea. States that her pain had just developed overnight. ROS: - Per HPI *Outpatient medications and allergy history reviewed. *Pertinent external medical records reviewed. PE: General: Alert HEENT: Normocephalic, trachea midline Eyes: Extraocular eye movement is intact, no scleral erythema Pulmonary: Clear to auscultation bilaterally, no wheezing Cardio: Regular rate and rhythm GI: Abdomen is soft to palpation, there is tenderness to the bilateral upper quadrants of the abdomen without guarding or rigidity : No suprapubic tenderness MSK: No evidence of trauma or malformation of the extremities, no edema Skin: No evidence of rash Neuro: Alert, no focal deficits Psychiatric: Cooperative case monitor: (As interpreted by myself): - An order was placed for continuous cardiac monitoring - Patient was noted to be in sinus rhythm with a rate of 80 Interventions provided in ED: -IV morphine, IV Zofran, IV fluid bolus Differential Diagnosis: Choledocholithiasis, small bowel obstruction, acute hepatitis, acute gastritis, acute pancreatitis, liver mass/liver tumor, amongst other potential pathologies. Medical Decision Making: Patient presented to the emergency department with upper abdominal pain, shortly after arrival IV was established and lab work obtained, patient was placed on dimensional inspector. CT imaging was obtained that shows no evidence of any obvious abnormality, lab work does show evidence of transaminitis. Ultrasound imaging of the liver was then obtained and does show some mild biliary ductal dilation but possibly just physiologic given that the patient has had history of cholecystectomy. Patient's transaminitis on lab work is fairly significant, AST 997, ALT 454, alk phos 128. CBC shows no leukocytosis, hemoglobin is 15.4, platelet count is within normal limits, bilirubin is also noted to be normal. On my reassessment patient states that her pain is coming back after 1 dose of IV morphine, she was subsequently ordered another dose. I did discuss the presentation with on-call gastroenterology, Dr. Sellers, recommends MRCP to rule out obstructive pathology and admission for supportive care. Patient is in agre ement to this. Case was then discussed with the [facility] service midlevel provider, patient was placed for admission in stable condition for further management. Consultants: -Gastroenterology, Dr. Sellers -[facility] service, Dr. Partida Disposition discussion held by myself with: Patient Diagnosis: 1. Abdominal pain, acute, upper abdomen 2. Transaminitis, acute, nonspecific 3. Nausea, acute Disposition: Admission Pop Aguirre DO Emergency Medicine Past Med/Surg History Medical History Deep vein thrombosis (DVT) of right upper extremity Fibromyalgia Migraine Social History Smoking Status: Never smoker Preferred Language: Malawian Feels Safe at Home: Yes Allergies Allergies Allergy/AdvReac Type Severity Reaction Status Date / Time Cephalosporins Allergy Unknown RASH Verified 11/20/22 06:09 NSAIDS (Non-Steroidal Allergy Unknown UNKNOWN Verified 11/20/22 06:09 Anti-Inflamma Penicillins Allergy Unknown RASH Verified 11/20/22 06:09 pregabalin AdvReac Intermediate DEPRESSION Verified 11/20/22 06:09 Home Meds Home Medications Medication Instructions Recorded Confirmed calcium carbonate 600 mg-vitamin 1 tab PO DAILY 08/24/20 08/24/20 D3 5 mcg (200 unit) tablet cholecalciferol (vitamin D3) 50 50 mcg PO DAILY 08/24/20 08/24/20 mcg (2,000 unit) capsule (Vitamin D3) coenzyme Q10 100 mg tablet 200 mg PO DAILY 08/24/20 08/24/20 fremanezumab-vfrm 225 mg/1.5 mL 140 mg subcut MO 08/24/20 08/24/20 subcutaneous auto-injector (Ajovy) hydrochlorothiazide 12.5 mg capsule 12.5 mg PO 5XWK 08/24/20 08/24/20 levothyroxine 100 mcg tablet 100 mcg PO DAILY 08/24/20 08/24/20 (Synthroid) milnacipran 50 mg tablet (Savella) 50 mg PO BID 08/24/20 08/24/20 pravastatin 40 mg tablet 20 mg PO HS 08/24/20 08/24/20 riboflavin (vitamin B2) 100 mg 200 mg PO DAILY 08/24/20 08/24/20 tablet (Vitamin B-2) tizanidine 4 mg tablet 4 mg PO HS 08/24/20 08/24/20 topiramate 50 mg tablet 50 mg PO QAM 08/24/20 08/24/20 topiramate 50 mg tablet 100 mg PO QPM 08/24/20 08/24/20 Previous Rx's Medication Instructions Recorded oxycodone 5 mg tablet 5 mg PO Q6H PRN pain #14 tabs 01/28/22 Results & Data (ED) Vital Signs Vital Signs - 24 hr 11/20/22 04:28 11/20/22 05:04 11/20/22 05:04 Temperature 36.4 C L Temperature Source Temporal Artery Scan Pulse Rate 102 H Pulse Rate [Finger] 84 Pulse Rhythm Regular Pulse Rhythm [Finger] Regular Pulse Strength Normal Pulse Strength [Finger] Normal Respiratory Rate 18 18 Respiratory Effort / Characteristics Non-Labored Spontaneous Non-Labored Spontaneous Respiratory Depth Normal Normal Respiratory Pattern Regular Regular Blood Pressure 147/80 H Blood Pressure [Right Arm] 137/86 Blood Pressure Mean 102 Blood Pressure Mean [Right Arm] 103 Blood Pressure Position Sitting Pulse Oximetry 100 99 Oxygen Delivery Method Room Air Room Air Room Air Sepsis Recent Fever Within 48 Hours No Sepsis New/Unexplained Change in Mental Status No Sepsis Action Taken by Nursing No Action Required 11/20/22 05:12 11/20/22 07:30 11/20/22 08:26 Temperature Temperature Source Pulse Rate 87 Pulse Rate [Finger] 82 69 Pulse Rhythm Pulse Rhythm [Finger] Regular Pulse Strength Pulse Strength [Finger] Normal Respiratory Rate 18 18 Respiratory Effort / Characteristics Non-Labored Non-Labored Respiratory Depth Normal Normal Respiratory Pattern Regular Regular Blood Pressure Blood Pressure [Right Arm] 160/91 H 153/80 H Blood Pressure Mean Blood Pressure Mean [Right Arm] 114 104 Blood Pressure Position Pulse Oximetry 96 99 Oxygen Delivery Method Room Air Room Air Sepsis Recent Fever Within 48 Hours Sepsis New/Unexplained Change in Mental Status Sepsis Action Taken by Nursing 11/20/22 09:24 Temperature Temperature Source Pulse Rate 76 Pulse Rate [Finger] Pulse Rhythm Pulse Rhythm [Finger] Pulse Strength Pulse Strength [Finger] Respiratory Rate Respiratory Effort / Characteristics Respiratory Depth Respiratory Pattern Blood Pressure Blood Pressure [Right Arm] Blood Pressure Mean Blood Pressure Mean [Right Arm] Blood Pressure Position Pulse Oximetry Oxygen Delivery Method Sepsis Recent Fever Within 48 Hours Sepsis New/Unexplained Change in Mental Status Sepsis Action Taken by Nursing Laboratory Data 11/20/22 04:53 11/20/22 04:53 Lab Results 11/20/22 11/20/22 Range/Units 04:53 04:53 WBC 7.39 (4.8-10.8) K/ul RBC 5.15 (4.20-5.40) M/uL Hgb 15.4 (12.0-16.0) g/dl Hct 46.5 (37.0-47.0) % MCV 90.3 (80.0-100.0) fL MCH 29.9 (25.0-34.0) pg MCHC 33.1 (32.0-36.0) g/dL RDW Std Deviation 43.2 (36.4-46.3) fL RDW Coeff of Blessing 13.0 (11.5-14.5) % Plt Count 270 (130-400) K/uL MPV 8.9 L (9.4-12.4) fL Immature Gran % (Auto) 0.3 % Neut % (Auto) 76.5 % Lymph % (Auto) 16.6 % Payne % (Auto) 6.0 % Eos % (Auto) 0.3 % Baso % (Auto) 0.3 % Neut # (Auto) 5.66 (1.40-6.50) K/uL Lymph # (Auto) 1.23 (1.2-3.4) K/uL Payne # (Auto) 0.44 (0.11-0.59) K/uL Eos # (Auto) 0.02 (0-0.50) K/uL Baso # (Auto) 0.02 (0-0.2) K/uL Immature Gran # (Auto) 0.02 (0.01-0.20) K/uL Sodium 137 (136-145) mmol/L Potassium 3.7 (3.5-5.1) mmol/L Chloride 107 (98-107) mmol/L Carbon Dioxide 24 (21-32) mmol/L Anion Gap 6 (3-11) BUN 14 (6-23) mg/dl Creatinine 0.98 (0.6-1.2) mg/dl Est Cr Clr Drug Dosing 61.6 ml/min Est GFR ( Amer) 68.2 ml/min Est GFR (Non-Af Amer) 58.9 ml/min BUN/Creatinine Ratio 14.3 (10-20) Glucose 82 (70-99(Fasting)) mg/dl Calcium 9.6 (8.6-10.3) mg/dl Total Bilirubin 0.9 (0.2-1.0) mg/dl AST 997 H (13-39) U/L ALT 454 H (7-52) U/L Alkaline Phosphatase 128 H (34-104) U/L Total Protein 7.5 (6.0-8.3) gm/dl Albumin 4.3 (3.4-5.0) gm/dl Globulin 3.2 (2.5-4.0) gm/dl Albumin/Globulin Ratio 1.3 (0.9-2) Lipase 40 (11-82) U/L Administered Medications Discontinued Medications Sodium Chloride (Nss 1000ml) 1,000 mls @ 999 mls/hr IV .Q1H1M ONE Stop: 11/20/22 07:49 Last Infusion: 11/20/22 09:22 Dose: 0 mls/hr Documented By: Admin: 11/20/22 07:21 Dose: 999 mls/hr Documented By: ANDI Morphine Sulfate (Morphine Sulfate 4 Mg/Ml 1 Ml Carp\Vial) 4 mg IV NOW STA Stop: 11/20/22 06:49 Last Admin: 11/20/22 07:26 Dose: 4 mg Documented By: ANDI Ondansetron HCl (Ondansetron Inj 2 Mg/Ml 2 Ml Vial) 4 mg IV NOW STA Stop: 11/20/22 05:33 Last Admin: 11/20/22 05:40 Dose: 4 mg Documented By: ESVIN Ondansetron HCl (Ondansetron Inj 2 Mg/Ml 2 Ml Vial) 4 mg IV NOW STA Stop: 11/20/22 06:49 Last Admin: 11/20/22 07:26 Dose: 4 mg Documented By: ANDI Imaging Data Radiologist's Impression: Abdomen/Pelvis CT 11/20/22 04:44 Exam(s): CT ABDOMEN + PELVIS Without Contrast EXAM: CT Abdomen and Pelvis Without Intravenous Contrast CLINICAL HISTORY: Reason for exam: abd pain. TECHNIQUE: Axial computed tomography images of the abdomen and pelvis without intravenous contrast. Automated exposure control was utilized for the study. A dose lowering technique was utilized adhering to the principles of ALARA. COMPARISON: No relevant prior studies available. FINDINGS: Lung bases: 6 mm nodular density seen in the right lower lobe on image 2, series 2. ABDOMEN: Liver: Unremarkable. Gallbladder and bile ducts: Cholecystectomy. No ductal dilation. Pancreas: Unremarkable. No ductal dilation. Spleen: Unremarkable. No splenomegaly. Adrenals: Unremarkable. No mass. Kidneys and ureters: Unremarkable. No obstructing stones. No hydronephrosis. Stomach and bowel: Moderate amount of fecal matter is seen in the colon. No obstruction. No mucosal thickening. PELVIS: Appendix: No findings to suggest acute appendicitis. Bladder: Unremarkable. No stones. Reproductive: Unremarkable as visualized. ABDOMEN and PELVIS: Intraperitoneal space: Unremarkable. No free air. No significant fluid collection. Bones/joints: L5/S1 moderate degenerative disc disease. No acute fracture. No dislocation. Soft tissues: Unremarkable. Vasculature: Unremarkable. No abdominal aortic aneurysm. Lymph nodes: Unremarkable. No enlarged lymph nodes. IMPRESSION: 1. Moderate amount of fecal matter in the colon, consistent with constipation 2. Right lower lobe pulmonary nodule of indeterminate etiology. Follow- up imaging suggested in 3 months time for further assessment. Electronically signed by: Venkata Mckinney MD 11/20/22 08:05 AM Liver Ultrasound 11/20/22 06:50 ABDOMINAL ULTRASOUND, RIGHT UPPER QUADRANT HISTORY: Transaminitis, acute, abdominal pain. COMPARISON: None. FINDINGS: Pancreas: The visualized pancreas demonstrates a normal echotexture. Liver: Mild intrahepatic bile duct dilatation is noted. No hepatic masses. Gallbladder: The gallbladder is surgically absent. CBD: 1 cm. Right kidney: No hydronephrosis. IMPRESSION: 1. Mild intra and extrahepatic bile duct dilatation. This may be due to the patient's post cholecystectomy state. 2. No evidence for choledocholithiasis. ACT 112: Negative or not required by law. Electronically signed by: Kota Salvador M.D. 11/20/2022 8:21 AM Discharge Plan Visit Data Chief Complaint: Abdominal Pain Stated Complaint: SEVERE STOMACH PAIN ED Provider: Pop Aguirre Discharge Problem: Abnormal transaminases Forms Stand Alone Forms: [employer] Prescriptions Prescriptions: No Action pravastatin 40 mg tablet 20 mg PO HS tizanidine 4 mg tablet 4 mg PO HS riboflavin (vitamin B2) [Vitamin B-2] 100 mg Tablet 200 mg PO DAILY calcium carbonate-vitamin D3 [Calcium + D] 600 mg(1,500mg) -200 unit Tablet 1 tab PO DAILY levothyroxine [Synthroid] 100 mcg Tablet 100 mcg PO DAILY hydrochlorothiazide 12.5 mg capsule 12.5 mg PO [id number] Rx Instructions: friday, friday, friday, friday, and friday topiramate 50 mg tablet 100 mg PO QPM topiramate 50 mg tablet 50 mg PO QAM cholecalciferol (vitamin D3) [Vitamin D3] 50 mcg (2,000 unit) Capsule 50 mcg PO DAILY Savella 50 mg tablet 50 mg PO BID coenzyme Q10 100 mg Tablet 200 mg PO DAILY Ajovy Autoinjector 225 mg/1.5 mL auto-injector 140 mg SUBCUT MO oxycodone 5 mg tablet 5 mg PO Q6H PRN (Reason: pain) Qty: 14 0RF Referrals Referrals: [facility] [Primary Care Provider] -
--- NOTE | 2022-11-20 08:05 | CT Scan Report ---
Exam(s): CT ABDOMEN + PELVIS Without Contrast EXAM: CT Abdomen and Pelvis Without Intravenous Contrast CLINICAL HISTORY: Reason for exam: abd pain. TECHNIQUE: Axial computed tomography images of the abdomen and pelvis without intravenous contrast. Automated exposure control was utilized for the study. A dose lowering technique was utilized adhering to the principles of ALARA. COMPARISON: No relevant prior studies available. FINDINGS: Lung bases: 6 mm nodular density seen in the right lower lobe on image 2, series 2. ABDOMEN: Liver: Unremarkable. Gallbladder and bile ducts: Cholecystectomy. No ductal dilation. Pancreas: Unremarkable. No ductal dilation. Spleen: Unremarkable. No splenomegaly. Adrenals: Unremarkable. No mass. Kidneys and ureters: Unremarkable. No obstructing stones. No hydronephrosis. Stomach and bowel: Moderate amount of fecal matter is seen in the colon. No obstruction. No mucosal thickening. PELVIS: Appendix: No findings to suggest acute appendicitis. Bladder: Unremarkable. No stones. Reproductive: Unremarkable as visualized. ABDOMEN and PELVIS: Intraperitoneal space: Unremarkable. No free air. No significant fluid collection. Bones/joints: L5/S1 moderate degenerative disc disease. No acute fracture. No dislocation. Soft tissues: Unremarkable. Vasculature: Unremarkable. No abdominal aortic aneurysm. Lymph nodes: Unremarkable. No enlarged lymph nodes. IMPRESSION: 1. Moderate amount of fecal matter in the colon, consistent with constipation 2. Right lower lobe pulmonary nodule of indeterminate etiology. Follow- up imaging suggested in 3 months time for further assessment. Electronically signed by: Venkata Mckinney MD 11/20/22 08:05 AM
--- NOTE | 2022-11-20 08:22 | Ultrasound Report ---
ABDOMINAL ULTRASOUND, RIGHT UPPER QUADRANT HISTORY: Transaminitis, acute, abdominal pain. COMPARISON: None. FINDINGS: Pancreas: The visualized pancreas demonstrates a normal echotexture. Liver: Mild intrahepatic bile duct dilatation is noted. No hepatic masses. Gallbladder: The gallbladder is surgically absent. CBD: 1 cm. Right kidney: No hydronephrosis. IMPRESSION: 1. Mild intra and extrahepatic bile duct dilatation. This may be due to the patient's post cholecyste ctomy state. 2. No evidence for choledocholithiasis. ACT 112: Negative or not required by law. Electronically signed by: Kota Salvador M.D. 11/20/2022 8:21 AM
--- NOTE | 2022-11-20 10:08 | History & Physical Report ---
Date of Service November 20, 2022 Assessment & Plan (1) Transaminitis: Plan: Admit to [facility] Patient presenting from home with reports of epigastric abdominal pain. In the ED, found to have transaminitis, T. bili 0.9, AST 997, ALT 454, alk phos 128. Noted normal LFTs from PCP visit on 11/18/22 - T. bili 0.3, AST 12, ALT 9, alk phos 83. CT ABD/pelvis-Moderate amount of fecal matter in the colon, consistent with constipation Liver ultrasound-Mild intra and extrahepatic bile duct dilatation. This may be due to the patient's post cholecystectomy state. No evidence for choledocholithiasis. MRCP- No filling defects within the common bile duct to suggest choledochol ithiasis. No change in the mild anterior and extra hepatic bile duct dilatation. This may be due to the patient's postcholecystectomy state. No new medications, patient denies alcohol use, hepatitis panel pending. Check Tylenol and alcohol level. GI consult --Dr. Sellers notified by ED Will keep n.p.o. until GI evaluation (2) Pulmonary nodule: Plan: CT ABD/pelvis shows Right lower lobe pulmonary nodule of indeterminate etiology. Follow-up imaging suggested in 3 months time for further assessment. (3) Hypothyroidism: Plan: Continue levothyroxine (4) Migraine: Plan: On Topamax and monthly Ajovy for prophylaxis Uses Reglan, DHE injections, medical marijuana for breakthrough (5) Fibromyalgia: (6) Chronic fatigue syndrome: Plan: Controlled on Savella (7) Hyperlipidemia: Plan: Hold statin due to transaminitis DVT PROPHYLAXIS SQ Lovenox I spent a total of 75 minutes coordinating, documenting, and providing care for this patient excluding time spent in the performance of separately billed services. This included personally reviewing all current laboratories and imaging studies, medication reconciliation, outpatient chart review, and discussion with specialists. History of Present Illness Chief Complaint: Abdominal pain Primary Care Provider: [facility] 67-year-old female with PMH hypothyroidism, chronic fatigue syndrome, fibromyalgia, migraines, hyperlipidemia, depression, history of upper extremity DVT s/p treatment, and other problems listed below who presents to the ED for evaluation of abdominal pain. History obtained from the patient and my personal review of outpatient PCP and rheumatology records. Patient reports that she was awoken at 1130 last night with severe epigastric abdominal pain. Patient also reports associated nausea however no vomiting. Patient rates the pain #8/10 at its worst. Pain was radiating down to the middle of her abdomen. Patient denies fevers and chills. Reports chronic diarrhea due to Wegovy injections. States that she has not noted any bright red bleeding per rectum or dark tarry stools. Reports urinary frequency. No chest pain or shortness of breath. Denies lightheadedness, dizziness, diaphoresis, syncopal event. In the ED, labs show transaminitis (T. bili 0.9, AST 997, ALT 454, alk phos 128). CT ABD/pelvis shows constipation, otherwise unremarkable. Liver US shows Mild intra and extrahepatic bile duct dilatation which may be due to the patient's post cho lecystectomy state. Patient was given IV morphine, IV Zofran, IVF. Allergies Allergy/AdvReac Type Severity Reaction Status Date / Time Cephalosporins Allergy Unknown RASH Verified 11/20/22 06:09 NSAIDS (Non-Steroidal Allergy Unknown UNKNOWN Verified 11/20/22 06:09 Anti-Inflamma Penicillins Allergy Unknown RASH Verified 11/20/22 06:09 pregabalin AdvReac Intermediate DEPRESSION Verified 11/20/22 06:09 Home Medications Medication Instructions Recorded Confirmed Type cholecalciferol (vitamin D3) 50 50 mcg PO DAILY 08/24/20 11/20/22 History mcg (2,000 unit) capsule (Vitamin D3) coenzyme Q10 100 mg tablet 200 mg PO DAILY 08/24/20 11/20/22 History fremanezumab-vfrm 225 mg/1.5 mL 140 mg subcut MO 08/24/20 11/20/22 History subcutaneous auto-injector (Ajovy) milnacipran 50 mg tablet (Savella) 50 mg PO BID 08/24/20 11/20/22 History topiramate 50 mg tablet 50 mg PO QAM 08/24/20 11/20/22 History topiramate 50 mg tablet 100 mg PO QPM 08/24/20 11/20/22 History Medical Marijuana 1 ea miscellaneous UD PRN Headache 11/20/22 11/20/22 History dihydroergotamine 1 mg/mL 1 mg IM UD PRN Headache 11/20/22 11/20/22 History injection solution levothyroxine 75 mcg tablet 75 mcg PO DAILY 11/20/22 11/20/22 History metoclopramide HCl 10 mg tablet 10 mg PO Q6H PRN Nausea 11/20/22 11/20/22 History (Reglan) pravastatin 20 mg tablet 20 mg PO HS 11/20/22 11/20/22 History semaglutide (weight loss) 1 mg/0.5 2 mg subcut Q7D 11/20/22 11/20/22 History mL subcutaneous pen injector (Wegovy) Past Med/Surg History Medical History (Updated 11/20/22 @ 12:25 by Shravan Teresa PA-C) Chronic fatigue syndrome Degenerative disc disease Depression Fibromyalgia History of DVT (deep vein thrombosis) History of hypertension Hyperlipidemia Hypothyroidism Migraine Surgical History H/O hysterectomy with oophorectomy H/O shoulder surgery History of cholecystectomy History of tonsillectomy Social History (Updated 11/20/22 @ 10:45 by ALEJO Desai) Smoking Status: Never smoker Hx Alcohol Use: Yes Alcohol Intake Frequency: Monthly or Less Preferred Language: Malay Feels Safe at Home: Yes Review of Systems Review of Systems: ROS per HPI, all other systems reviewed and negative Physical Exam Constitutional: WD/WN, vitals as above Eyes: PERRL, conjunctivae normal, anicteric sclerae ENMT: external ear and nose normal, oropharynx normal Respiratory: normal respiratory effort, lungs clear to auscultation Cardiovascular: Rate/Rhythm: regular rate and regular rhythm Vessels: normal peripheral pulses Extremities: no edema Gastrointestinal (Abdomen): normal bowel sounds, soft, nontender, no hepatosplenomegaly Musculoskeletal: no cyanosis or clubbing, extremities motor strength 5/5 Skin: no rashes, warm and dry Neurologic: PERRL, EOMI, accommodation nl, no face palsy, no dysarthria Psychiatric: A+Ox3, euthymic affect Results & Data Results & Data Vital Signs (Past 12 Hours) Vital Signs Temp Pulse Pulse Resp BP BP Pulse Ox 11/20/22 09:24 76 11/20/22 08:26 69 18 153/80 H 99 11/20/22 07:30 82 18 160/91 H 96 11/20/22 05:12 87 11/20/22 05:04 11/20/22 05:04 84 18 137/86 99 11/20/22 04:28 36.4 C L 102 H 18 147/80 H 100 O2 Del Method 11/20/22 09:24 11/20/22 08:26 Room Air 11/20/22 07:30 Room Air 11/20/22 05:12 11/20/22 05:04 Room Air 11/20/22 05:04 Room Air 11/20/22 04:28 Room Air Laboratory Results Short CBC 11/20/22 Range/Units 04:53 WBC 7.39 (4.8-10.8) K/ul Hgb 15.4 (12.0-16.0) g/dl Hct 46.5 (37.0-47.0) % Plt Count 270 (130-400) K/uL BMP 11/20/22 04:53 Sodium 137 Potassium 3.7 Chloride 107 Carbon Dioxide 24 BUN 14 Creatinine 0.98 Glucose 82 Calcium 9.6 Liver Function 11/20/22 Range/Units 04:53 Total Bilirubin 0.9 (0.2-1.0) mg/dl AST 997 H (13-39) U/L ALT 454 H (7-52) U/L Alkaline Phosphatase 128 H (34-104) U/L Albumin 4.3 (3.4-5.0) gm/dl Urine 11/20/22 Range/Units 07:19 Urine Color Yellow Urine Appearance Clear (Clear) Urine pH 6.5 (4.5-7.5) Ur Specific [place] 1.008 (1.000-1.030) Urine Protein Negative (Negative) Urine Glucose (UA) Negative (Negative) Diagnostic Findings Abdomen/Pelvis CT 11/20/22 04:44 Exam(s): CT ABDOMEN + PELVIS Without Contrast EXAM: CT Abdomen and Pelvis Without Intravenous Contrast CLINICAL HISTORY: Reason for exam: abd pain. TECHNIQUE: Axial computed tomography images of the abdomen and pelvis without intravenous contrast. Automated exposure control was utilized for the study. A dose lowering technique was utilized adhering to the principles of ALARA. COMPARISON: No relevant prior studies available. FINDINGS: Lung bases: 6 mm nodular density seen in the right lower lobe on image 2, series 2. ABDOMEN: Liver: Unremarkable. Gallbladder and bile ducts: Cholecystectomy. No ductal dilation. Pancreas: Unremarkable. No ductal dilation. Spleen: Unremarkable. No splenomegaly. Adrenals: Unremarkable. No mass. Kidneys and ureters: Unremarkable. No obstructing stones. No hydronephrosis. Stomach and bowel: Moderate amount of fecal matter is seen in the colon. No obstruction. No mucosal thickening. PELVIS: Appendix: No findings to suggest acute appendicitis. Bladder: Unremarkable. No stones. Reproductive: Unremarkable as visualized. ABDOMEN and PELVIS: Intraperitoneal space: Unremarkable. No free air. No significant fluid collection. Bones/joints: L5/S1 moderate degenerative disc disease. No acute fracture. No dislocation. Soft tissues: Unremarkable. Vasculature: Unremarkable. No abdominal aortic aneurysm. Lymph nodes: Unremarkable. No enlarged lymph nodes. IMPRESSION: 1. Moderate amount of fecal matter in the colon, consistent with constipation 2. Right lower lobe pulmonary nodule of indeterminate etiology. Follow- up imaging suggested in 3 months time for further assessment. Electronically signed by: Venkata Mckinney MD 11/20/22 08:05 AM Liver Ultrasound 11/20/22 06:50 ABDOMINAL ULTRASOUND, RIGHT UPPER QUADRANT HISTORY: Transaminitis, acute, abdominal pain. COMPARISON: None. FINDINGS: Pancreas: The visualized pancreas demonstrates a normal echotexture. Liver: Mild intrahepatic bile duct dilatation is noted. No hepatic masses. Gallbladder: The gallbladder is surgically absent. CBD: 1 cm. Right kidney: No hydronephrosis. IMPRESSION: 1. Mild intra and extrahepatic bile duct dilatation. This may be due to the patient's post cholecystectomy state. 2. No evidence for choledocholithiasis. ACT 112: Negative or not required by law. Electronically signed by: Kota Salvador M.D. 11/20/2022 8:21 AM Cholangiopancreatography MRI 11/20/22 08:48 MR MRCP HISTORY: Nausea. abd pain, LFTs elevated TECHNIQUE: MRCP of the abdomen was performed without contrast according to [facility]al protocol. COMPARISON STUDY: Abdomen and pelvis CT 11/20/2022. FINDINGS: The lung bases are clear. No hepatic or splenic masses. The adrenal glands and pancreas unremarkable. Normal caliber abdominal aorta. No retroperitoneal lymphadenopathy. There are few small T2 hyperintense lesions within the kidneys likely representing cysts. No hydronephrosis. Prior cholecystectomy. Mild intra and extra hepatic bile duct dilatation again noted. The common bile duct measures up to 1 cm in diameter. No filling defects within the common bile duct to suggest choledocholithiasis. The main pancreatic duct is normal in course and caliber. IMPRESSION: 1. Prior cholecystectomy. 2. No filling defects within the common bile duct to suggest choledocholithiasis. 3. No change in the mild anterior and extra hepatic bile duct dilatation. This may be due to the patient's postcholecystectomy state. ACT 112: Negative or not required by law. Electronically signed by: Kota Salvador M.D. 11/20/2022 10:44 AM Code Status & VTE Plan VTE Prophylaxis Plan VTE Prophylaxis will be ordered: Yes Supervising Physician Co-Signing Physician Notes Attending addendum: The patient was seen and examined in emergency room She has been complaining of acute abdominal pain with nausea since last evening Denies any change in her food have it, any diarrhea associated with it, any fever or chills, any new medications, any excessive use of alcohol except recently she has increased her Wegovy double the dose Has been feeling better with IV morphine in the emergency room On examination Lying in bed comfortably Afebrile and hemodynamically stable Chest-clear to auscultate bilaterally Heart-S1, [id number] Abdomen-mildly distended, soft and nontender Extremities-trace edema bilaterally COMMERCIAL ARTIST LETTERING-alert, awake and oriented x3 Her admission labs, EKG and imaging studies reviewed Has abnormal LFTs AST more than ALT with normal alkaline phosphatase and intraductal dilatation MRCP did not reveal any choledocholithiasis-GI has been consulted Awaiting further test Agree with assessment and plan as outlined above by Juany Partida
[2022-11-20 10:20] LABS: Appearance Urine Clear (Clear); Bacteria Urine Automated Negative (Negative); Bilirubin Urine Negative (Negative); Blood Urine Negative (Negative); Cast Urine Automated 0 /lpf (0-5); Color Urine Yellow; Glucose Urine UA Negative (Negative); Ketones Urine Negative (Negative); Leukocyte Esterase Urine Trace (Negative); Nitrite Urine Negative (Negative); Protein Urine Negative (Negative); RBC Urine Automated 0-4 /hpf (0-4); Specific Gravity Urine 1.008 (1.000-1.030); Urobilinogen Urine Negative (Negative); pH Urine 6.5 (4.5-7.5)
--- NOTE | 2022-11-20 10:46 | Magnetic Resonance Report ---
MR MRCP HISTORY: Nausea. abd pain, LFTs elevated TECHNIQUE: MRCP of the abdomen was performed without contrast according to standard departmental prot ocol. COMPARISON STUDY: Abdomen and pelvis CT 11/20/2022. FINDINGS: The lung bases are clear. No hepatic or splenic masses. The adrenal glands and pancreas unr emarkable. Normal caliber abdominal aorta. No retroperitoneal lymphadenopathy. There are few small T2 hyperintense lesions within the kidneys likely representing cysts. No hydronephrosis. Prior cholecys tectomy. Mild intra and extra hepatic bile duct dilatation again noted. The common bile duct measures up to 1 cm in diameter. No filling defects within the common bile duct to suggest choledocholithiasi s. The main pancreatic duct is normal in course and caliber. IMPRESSION: 1. Prior cholecystectomy. 2. No filling defects within the common bile duct to suggest choledocholithiasis. 3. No change in the mild anterior and extra hepatic bile duct dilatation. This may be due to the thomas ent's postcholecystectomy state. ACT 112: Negative or not required by law. Electronically signed by: Kota Salvador M.D. 11/20/2022 10:44 AM
[2022-11-20] MEDS ORDERED: MoRPHine SULFATE 4 MG/ML 1 ML CARP\\VIAL ONE (11:49)
--- NOTE | 2022-11-20 12:21 | Gastrointestinal Consultation ---
Date of Consultation November 20, 2022 Assessment & Plan (1) Transaminitis: Discussed case with Dr. Sellers. - This may be more transient in nature given that she reports normal LFTs earlier this week. will await hep panel results and add a hep b surface ab given that she feels she may have been told she had hep B in the past. - will continue to trend LFTs. (2) Epigastric abdominal pain: - will start her on protonix 40mg bid. Supervising Physician Co-Signing Physician Notes Agree with KRISTAL Burns as above Abd: Soft, NT, ND, +BS Continue current therapy and supportive care Will reevaluate following lab work in AM History of Present Illness Reason for Consultation: transaminitis Requesting Physician: Pop Aguirre DO History of Present Illness 67-year-old female with PMH hypothyroidism, chronic fatigue syndrome, fibromyalgia, migraines, hyperlipidemia, depression, history of upper extremity DVT s/p treatment who presents to the ED for evaluation of abdominal pain. She tells me that last evening she had sudden onset of epigastric pain. rated 8/10. feels sharp. waxes and wanes. She has some nausea. During evaluation she had been found to have transaminitis. AST 997, ALT 454, alk phos 128, t bili 0.9. she tells me that she just had LFTs done as an outpatient at outside facility earlier this week that were normal ( I do not have these records). US shown mild intra/extrahepatic biliary dilation, but no masses. MRCP no filling defects to suggest choledocholithiasis. she tells me that in the past she was told she had possibly had hep B infection but that this improved over time. she believes she may have gotten this from an ex who was "into drugs". she denies any significant etoh or tylenol use. she denies drug use. she denies any vomiting, heartburn, dysphagia, unintentional weight loss, change in bowels, brbpr, or melena. Allergies Allergy/AdvReac Type Severity Reaction Status Date / Time Cephalosporins Allergy Unknown RASH Verified 11/20/22 06:09 NSAIDS (Non-Steroidal Allergy Unknown UNKNOWN Verified 11/20/22 06:09 Anti-Inflamma Penicillins Allergy Unknown RASH Verified 11/20/22 06:09 pregabalin AdvReac Intermediate DEPRESSION Verified 11/20/22 06:09 Home Medications Medication Instructions Recorded Confirmed Type cholecalciferol (vitamin D3) 50 50 mcg PO DAILY 08/24/20 11/20/22 History mcg (2,000 unit) capsule (Vitamin D3) coenzyme Q10 100 mg tablet 200 mg PO DAILY 08/24/20 11/20/22 History fremanezumab-vfrm 225 mg/1.5 mL 140 mg subcut MO 08/24/20 11/20/22 History subcutaneous auto-injector (Ajovy) milnacipran 50 mg tablet (Savella) 50 mg PO BID 08/24/20 11/20/22 History topiramate 50 mg tablet 50 mg PO QAM 08/24/20 11/20/22 History topiramate 50 mg tablet 100 mg PO QPM 08/24/20 11/20/22 History Medical Marijuana 1 ea miscellaneous UD PRN Headache 11/20/22 11/20/22 History dihydroergotamine 1 mg/mL 1 mg IM UD PRN Headache 11/20/22 11/20/22 History injection solution levothyroxine 75 mcg tablet 75 mcg PO DAILY 11/20/22 11/20/22 History metoclopramide HCl 10 mg tablet 10 mg PO Q6H PRN Nausea 11/20/22 11/20/22 History (Reglan) pravastatin 20 mg tablet 20 mg PO HS 11/20/22 11/20/22 History semaglutide (weight loss) 1 mg/0.5 2 mg subcut Q7D 11/20/22 11/20/22 History mL subcutaneous pen injector (Wegovy) Patient History Medical History (Updated 11/20/22 @ 12:25 by Shravan Teresa PA-C) Chronic fatigue syndrome Degenerative disc disease Depression Fibromyalgia History of DVT (deep vein thrombosis) History of hypertension Hyperlipidemia Hypothyroidism Migraine Surgical History H/O hysterectomy with oophorectomy H/O shoulder surgery History of cholecystectomy History of tonsillectomy Social History (Updated 11/20/22 @ 10:45 by ALEJO Desai) Smoking Status: Never smoker Second Hand Exposure: No; Do You Dip or Chew Tobacco: No; Tobacco Cessation Education Requested by Patient: No Hx Alcohol Use: Yes Alcohol type: wine and hard liquor Alcohol Intake Frequency: Monthly or Less Hx Substance Use: Yes Last Used Substance Other:: approx a month used for acute headaches Substance Use Type Other:: medical marijuana Preferred Language: Algerian Communication Ability: Effective Lead Manufacturing Technician Required: No Beliefs That Will Affect Care: None Current Living Situation: Spouse Other Information That Helps Us Care for You: No Feels Safe at Home: Yes Safety Concerns: Feels Safe At This Time Assistive Devices: Glasses Review of Systems Review of Systems: All systems reviewed & are unremarkable except as noted in HPI & below Physical Exam Constitutional: WD/WN, vitals as above Respiratory: normal respiratory effort, lungs clear to auscultation Cardiovascular: RRR, no murmur, no edema Gastrointestinal (Abdomen): mild epigastric tenderness, no guarding, soft. normal bowel sounds. Skin: no rashes, warm and dry Psychiatric: Orientation: alert and oriented x 3 Affect: euthymic affect Results & Data Vital Signs (Past 12 Hours) Vital Signs Temp Pulse Pulse Resp BP BP Pulse Ox 11/20/22 11:53 80 18 137/83 99 11/20/22 09:24 76 11/20/22 10:39 92 H 18 162/87 H 98 11/20/22 08:26 69 18 153/80 H 99 11/20/22 07:30 82 18 160/91 H 96 11/20/22 05:12 87 11/20/22 05:04 11/20/22 05:04 84 18 137/86 99 11/20/22 04:28 97.5 F L 102 H 18 147/80 H 100 O2 Del Method 11/20/22 11:53 Room Air 11/20/22 09:24 11/20/22 10:39 Room Air 11/20/22 08:26 Room Air 11/20/22 07:30 Room Air 11/20/22 05:12 11/20/22 05:04 Room Air 11/20/22 05:04 Room Air 11/20/22 04:28 Room Air PG Care Time/CCT Total # of Minutes Spent Total Time Spent with Patient: Total time spent is greater than 50% in coordination of care (as documented) at patient's floor/unit and/or counseling patient: Coding Level of Care Code 16697 INT INP/OBS CARE 2/55MIN Diagnoses Transaminitis R74.01 Epigastric abdominal pain R10.13
[2022-11-20] MEDS ORDERED: PANTOprazole 40 MG TAB PO STA (12:39)
[2022-11-20] MEDS ORDERED: ONDANSETRON INJ 2 MG/ML 2 ML VIAL IV PRN (14:47)
[2022-11-20] MEDS ORDERED: ACETAMINOPHEN 325 MG TAB PO PRN (14:47)
[2022-11-20] MEDS: ENOXAPARIN INJ 40 MG/0.4 ML SYR SQ SCH (15:44)
[2022-11-20] MEDS: MoRPHine SULFATE 4 MG/ML 1 ML CARP\\VIAL IV PRN (18:30)
[2022-11-20] MEDS: TOPIRAMATE 100 MG TAB PO SCH (20:05)
[2022-11-20] MEDS: PANTOprazole 40 MG TAB PO SCH (20:05)
[2022-11-20] MEDS ORDERED: PROMETHAZINE HCL 12.5 MG in SODIUM CHLORIDE 0.9% 50 ML IV PRN (20:05)
[2022-11-20] MEDS: MILNACIPRAN HCL PO SCH (20:07)
[2022-11-21] MEDS: LEVOTHYROXINE SODIUM 75 MCG TABLET PO SCH (05:50)
[2022-11-21 06:18] LABS: Hemoglobin 13.2 g/dl (12.0-16.0); Mean Corpuscular Hemoglobin 29.7 pg (25.0-34.0); Mean Corpuscular Volume 90.1 fL (80.0-100.0); Mean Platelet Volume 8.9 fL (9.4-12.4); Platelet Count 202 K/uL (130-400); RDW Standard Deviation 42.9 fL (36.4-46.3); Red Blood Count 4.44 M/uL (4.20-5.40)
[2022-11-21 07:13] LABS: Albumin Globulin Ratio 1.6 (0.9-2); Albumin Level 3.6 gm/dl (3.4-5.0); BUN Creatinine Ratio 11.4 (10-20); Bilirubin Direct 0.5 mg/dl (0-0.2); Bilirubin,Total 1.5 mg/dl (0.2-1.0); Calcium 8.9 mg/dl (8.6-10.3); Creatinine Clr Calc Pharmacy 68.6 ml/min; Est GFR (African American) 77.7 ml/min; Globulin 2.3 gm/dl (2.5-4.0); Potassium 4.1 mmol/L (3.5-5.1); Total Protein 5.9 gm/dl (6.0-8.3)
[2022-11-21] MEDS: MILNACIPRAN HCL PO SCH ×2 (09:15→20:01)
[2022-11-21] MEDS: TOPIRAMATE 50 MG TAB PO SCH (09:15)
[2022-11-21] MEDS: PANTOprazole 40 MG TAB PO SCH ×2 (09:16→20:03)
--- NOTE | 2022-11-21 09:49 | Gastroenterology Progress Note ---
Date of Service November 21, 2022 Assessment & Plan (1) Epigastric abdominal pain: Plan: - she feels pain has significantly improved. - continue protonix 40mg PO bid. - okay to advance diet as tolerated. (2) Transaminitis: Plan: - AST significantly improved buthad a rise in ALT and T bili. awaiting hep panel results. will continue to trend LFTs. Plan patient is questioning going home today. If she is discharged, would plan to repeat LFTs in one week and follow with GI clinic in one week. Admission and Anticipated Discharge Date Admission Date: November 20, 2022 Subjective Patient tells me she is feeling significantly better today. pain has improved and is currently mild, rated 2/10. she tolerated liquids for breakfast. she wishes to try something more substantial for lunch. she is questioning being able to go home. hep panel is pending. 11/21/22 Alk Phos 169, t bili 1.5, d bili 0.5, AST 458, ALT 672. Physical Exam Constitutional: WD/WN, vitals as above Respiratory: normal respiratory effort, lungs clear to auscultation Cardiovascular: RRR, no murmur, no edema Gastrointestinal (Abdomen): normal bowel sounds, soft, nontender, no hepatosplenomegaly Skin: no rashes, warm and dry Psychiatric: Orientation: alert and oriented x 3 Affect: euthymic affect Results & Data Results & Data Vital Signs (Past 12 Hours) Vital Signs Temp Pulse Resp BP Pulse Ox O2 Del Method 11/21/22 07:41 98.2 F 71 16 139/86 100 Room Air PG Care Time/CCT Total # of Minutes Spent Total Time Spent with Patient: Total time spent is greater than 50% in coordination of care (as documented) at patient's floor/unit and/or counseling patient: Coding Level of Care Code 38730 SUB INP/OBS CARE 2/35MIN Diagnoses Epigastric abdominal pain R10.13 Transaminitis R74.01 Time Spent (min) 35
[2022-11-21 12:03] LABS: HBSAG NON-REACTIVE (NON-REACTIVE); Hepatitis A Antibody IgM NON-REACTIVE (NON-REACTIVE); Hepatitis B Core Antibody IgM NON-REACTIVE (NON-REACTIVE)
[2022-11-21 12:56] LABS: INR 1.1 (0.9-1.1); Partial Thromboplastin Ratio 1.1; Partial Thromboplastin Time 31.1 Seconds (21.0-31.0); Prothrombin Time 11.6 Seconds (9.0-12.0)
[2022-11-21 13:17] LABS: Lyme Ab IgG w/WB Rflx Negative (Negative); Lyme Ab IgM w/WB Rflx Negative (Negative)
[2022-11-21] MEDS: ENOXAPARIN INJ 40 MG/0.4 ML SYR SQ SCH (15:35)
--- NOTE | 2022-11-21 17:22 | Hospitalist Progress Note ---
Date of Service November 21, 2022 Assessment & Plan (1) Transaminitis: Plan: Presented from home with reports of epigastric abdominal pain. In the ED, found to have transaminitis, T. bili 0.9-> 1.5, AST 997->468, ALT 454->672, alk phos 128 ->169 Noted normal LFTs from PCP visit on 11/18/22 - T. bili 0.3, AST 12, ALT 9, alk phos 83. CT ABD/pelvis-Moderate amount of fecal matter in the colon, consistent with constipation Liver ultrasound-Mild intra and extrahepatic bile duct dilatation. This may be due to the patient's post cholecystectomy state. No evidence for choledocholithiasis. MRCP- No filling defects within the common bile duct to suggest choledocholithia sis. No change in the mild anterior and extra hepatic bile duct dilatation. This may be due to the patient's postcholecystectomy state No new medications, patient denies alcohol use, hepatitis panel pending, lyme serology negative, peripheral smear without evidence of inclusion bodies, anaplasma DNA pending. Tylenol and etoh levels wnl, PT/INR wnl GI consulted - diet advanced, continue Protonix 40mg BID. AST significantly improved but a rise in ALT and Tbili. Awaiting hep panel results. If discharged, plan to repeat LFTs in one week and follow up with GI clinic in one week (2) Pulmonary nodule: Plan: CT ABD/pelvis shows Right lower lobe pulmonary nodule of indeterminate etiology. Follow-up imaging suggested in 3 months time for further assessment (3) Hypothyroidism: Plan: Continue levothyroxine (4) Migraine: Plan: On Topamax and monthly Ajovy for prophylaxis Uses Reglan, DHE injections, medical marijuana for breakthrough (5) Fibromyalgia: (6) Chronic fatigue syndrome: Plan: Controlled on Savella (7) Hyperlipidemia: Plan: Hold statin due to transaminitis Constipation Fecal retention noted on CT abd/pelvis, non-obstructive. Added bowel regimen, monitor DVT PROPHYLAXIS SQ Lovenox I spent a total of 50 minutes coordinating, documenting, and providing care for this patient excluding time spent in the performance of separately billed services. Admission and Anticipated Discharge Date Admission Date: November 20, 2022 Supervising Physician Co-Signing Physician Notes I have seen and examined the patient and have discussed the case with the provider above. I agree with the assessment and plan as stated. 67 yo F presenting with acute onset epigastric pain that was severe and found to have isolated elevated AST and ALT. This has decreased, however, workup to date has been unrevealing for clear cause as noted above. Tonight she is still eating only oatmeal and is reporting a 4/10 pain. Physical exam reveals a nontender, soft, nondistended abdomen and is otherwise unremarkable. With abominal pain still present and only one day of LFTs decreasing without a clear cause at this time, she will stay an additional night. Hopeful that pain will resolve completely and she will be able to tolerate solid foods. She did report some malaise predating this pain which was nonspecific. HIV test sent after verbal consent was obtained. Will likely DC in am and have her follow-up with PCP in the office . DO Stephen Subjective Seen and examined in 356 bed 1 in follow-up for abdominal pain and acute transaminitis. Abdominal pain has improved today but is still located in epigastrium. Tolerated clear liquids this morning and planning to try oatmeal at lunch, advance diet as tolerated per GI. Denies any other new symptoms overnight. Reviewed patient medications, not on anything now but on increased dose of Ajovy recently. Denies any recent gastroenteritis-like illness. Does have tick exposure due to her dogs but denies any recent rashes. No fever, chills, lightheadedness, chest pain, shortness of breath, vomiting, dysuria or diarrhea. Review of Systems Review of Systems: ROS per HPI, all other systems reviewed and negative Physical Exam Physical Exam: Gen: WD/WN, NAD, lying in bed, A&Ox3 HEENT: Normocephalic, atraumatic, sclerae anicteric, mucous membranes moist Lung: Clear to Auscultation bilaterally, no wheezes/rales/rhonchi Heart: Regular rate, regular rhythm, no murmurs, rubs, or gallops Abdomen: Soft, TTP in epigastrium, no guarding, ND +BS x 4 Extremities: no edema Skin: Warm, no rash, no jaundice Results & Data Results & Data Vital Signs (Past 12 Hours) Vital Signs Temp Pulse Resp BP Pulse Ox O2 Del Method 11/21/22 15:28 37.0 C 88 16 122/85 96 Room Air 11/21/22 11:02 37.1 C 79 16 148/78 H 99 Room Air 11/21/22 07:41 36.8 C 71 16 139/86 100 Room Air Laboratory Results Short CBC 11/21/22 Range/Units 05:41 WBC 4.80 (4.8-10.8) K/ul Hgb 13.2 (12.0-16.0) g/dl Hct 40.0 (37.0-47.0) % Plt Count 202 (130-400) K/uL BMP 11/21/22 05:41 Sodium 140 Potassium 4.1 Chloride 111 H Carbon Dioxide 24 BUN 10 Creatinine 0.88 Glucose 78 Calcium 8.9 Liver Function 11/21/22 Range/Units 05:41 Total Bilirubin 1.5 H D (0.2-1.0) mg/dl Direct Bilirubin 0.5 H (0-0.2) mg/dl AST 458 H (13-39) U/L ALT 672 H (7-52) U/L Alkaline Phosphatase 169 H (34-104) U/L Albumin 3.6 (3.4-5.0) gm/dl Diagnostic Findings Abdomen/Pelvis CT 11/20/22 04:44 Exam(s): CT ABDOMEN + PELVIS Without Contrast EXAM: CT Abdomen and Pelvis Without Intravenous Contrast CLINICAL HISTORY: Reason for exam: abd pain. TECHNIQUE: Axial computed tomography images of the abdomen and pelvis without intravenous contrast. Automated exposure control was utilized for the study. A dose lowering technique was utilized adhering to the principles of ALARA. COMPARISON: No relevant prior studies available. FINDINGS: Lung bases: 6 mm nodular density seen in the right lower lobe on image 2, series 2. ABDOMEN: Liver: Unremarkable. Gallbladder and bile ducts: Cholecystectomy. No ductal dilation. Pancreas: Unremarkable. No ductal dilation. Spleen: Unremarkable. No splenomegaly. Adrenals: Unremarkable. No mass. Kidneys and ureters: Unremarkable. No obstructing stones. No hydronephrosis. Stomach and bowel: Moderate amount of fecal matter is seen in the colon. No obstruction. No mucosal thickening. PELVIS: Appendix: No findings to suggest acute appendicitis. Bladder: Unremarkable. No stones. Reproductive: Unremarkable as visualized. ABDOMEN and PELVIS: Intraperitoneal space: Unremarkable. No free air. No significant fluid collection. Bones/joints: L5/S1 moderate degenerative disc disease. No acute fracture. No dislocation. Soft tissues: Unremarkable. Vasculature: Unremarkable. No abdominal aortic aneurysm. Lymph nodes: Unremarkable. No enlarged lymph nodes. IMPRESSION: 1. Moderate amount of fecal matter in the colon, consistent with constipation 2. Right lower lobe pulmonary nodule of indeterminate etiology. Follow- up imaging suggested in 3 months time for further assessment. Electronically signed by: Venkata Mckinney MD 11/20/22 08:05 AM Liver Ultrasound 11/20/22 06:50 ABDOMINAL ULTRASOUND, RIGHT UPPER QUADRANT HISTORY: Transaminitis, acute, abdominal pain. COMPARISON: None. FINDINGS: Pancreas: The visualized pancreas demonstrates a normal echotexture. Liver: Mild intrahepatic bile duct dilatation is noted. No hepatic masses. Gallbladder: The gallbladder is surgically absent. CBD: 1 cm. Right kidney: No hydronephrosis. IMPRESSION: 1. Mild intra and extrahepatic bile duct dilatation. This may be due to the patient's post cholecystectomy state. 2. No evidence for choledocholithiasis. ACT 112: Negative or not required by law. Electronically signed by: Kota Salvador M.D. 11/20/2022 8:21 AM Cholangiopancreatography MRI 11/20/22 08:48 MR MRCP HISTORY: Nausea. abd pain, LFTs elevated TECHNIQUE: MRCP of the abdomen was performed without contrast according to standard departmental protocol. COMPARISON STUDY: Abdomen and pelvis CT 11/20/2022. FINDINGS: The lung bases are clear. No hepatic or splenic masses. The adrenal glands and pancreas unremarkable. Normal caliber abdominal aorta. No retroperitoneal lymphadenopathy. There are few small T2 hyperintense lesions within the kidneys likely representing cysts. No hydronephrosis. Prior cholecystectomy. Mild intra and extra hepatic bile duct dilatation again noted. The common bile duct measures up to 1 cm in diameter. No filling defects within the common bile duct to suggest choledocholithiasis. The main pancreatic duct is normal in course and caliber. IMPRESSION: 1. Prior cholecystectomy. 2. No filling defects within the common bile duct to suggest choledocholithiasis. 3. No change in the mild anterior and extra hepatic bile duct dilatation. This may be due to the patient's postcholecystectomy state. ACT 112: Negative or not required by law. Electronically signed by: Kota Salvador M.D. 11/20/2022 10:44 AM
[2022-11-21] MEDS ORDERED: POLYETHYLENE (MIRALAX) 17 GM PACK PO PRN (17:27)
[2022-11-21] MEDS ORDERED: DOCUSATE SODIUM 100 MG CAP PO ONE (17:30)
[2022-11-21] MEDS: MoRPHine SULFATE 4 MG/ML 1 ML CARP\\VIAL IV PRN (19:47)
[2022-11-21] MEDS: TOPIRAMATE 100 MG TAB PO SCH (20:03)
[2022-11-21] MEDS ORDERED: POLYETHYLENE (MIRALAX) 17 GM PACK PO STA (21:27)
[2022-11-21] MEDS ORDERED: DOCUSATE SODIUM/SENNA 50/8.6MG TAB PO STA (21:27)
[2022-11-21] MEDS ORDERED: ACETAMINOPHEN 1,000 MG/100 ML VIAL IV STA (21:27)
[2022-11-21] MEDS ORDERED: traMADol HCL 50 MG TABLET PO PRN (21:29)
[2022-11-21] MEDS ORDERED: ACETAMINOPHEN 325 MG TAB PO PRN (21:32)
[2022-11-21] MEDS ORDERED: LACTULOSE SYRUP 30 GM/45 ML UDP PO STA (21:37)
[2022-11-22] MEDS: LEVOTHYROXINE SODIUM 75 MCG TABLET PO SCH (05:43)
[2022-11-22 07:38] LABS: Hematocrit (blood only) 42.6 % (37.0-47.0); Hemoglobin 14.4 g/dl (12.0-16.0); Mean Corpuscular Hemoglobin 29.9 pg (25.0-34.0); Mean Corpuscular Hgb Conc 33.8 g/dL (32.0-36.0); Mean Corpuscular Volume 88.6 fL (80.0-100.0); Platelet Count 225 K/uL (130-400); RDW Coefficient of Variation 12.9 % (11.5-14.5); Red Blood Count 4.81 M/uL (4.20-5.40); White Blood Count 6.54 K/ul (4.8-10.8)
[2022-11-22 08:01] LABS: Partial Thromboplastin Ratio 1.1; Partial Thromboplastin Time 31.6 Seconds (21.0-31.0); Prothrombin Time 11.4 Seconds (9.0-12.0)
[2022-11-22 08:02] LABS: Albumin Globulin Ratio 1.3 (0.9-2); Albumin Level 3.7 gm/dl (3.4-5.0); BUN Creatinine Ratio 9.9 (10-20); Bilirubin,Total 0.7 mg/dl (0.2-1.0); Calcium 9.3 mg/dl (8.6-10.3); Creatinine Clr Calc Pharmacy 66.4 ml/min; Est GFR (African American) 74.6 ml/min; Est GFR (Non-African American) 64.4 ml/min; Globulin 2.9 gm/dl (2.5-4.0); Potassium 3.8 mmol/L (3.5-5.1); Total Protein 6.6 gm/dl (6.0-8.3)
[2022-11-22] MEDS: MILNACIPRAN HCL PO SCH (08:29)
[2022-11-22] MEDS: PANTOprazole 40 MG TAB PO SCH (08:29)
[2022-11-22] MEDS: TOPIRAMATE 50 MG TAB PO SCH (08:29)
[2022-11-22] MEDS ORDERED: DOCUSATE SODIUM/SENNA 50/8.6MG TAB PO SCH (09:00)
--- NOTE | 2022-11-22 09:45 | Gastroenterology Progress Note ---
Date of Service November 22, 2022 Assessment & Plan (1) Epigastric abdominal pain: (2) Constipation: Plan: It is possible that constipation may be playing a factor in her pain. - continue with protonix 40mg bid. - she was given a dose of lactulose last evening. will change order on miralax to daily dose instead of PRN. will have her take dose now. (3) Transaminitis: Plan: - LFTs are improving. Will continue to monitor. Admission and Anticipated Discharge Date Admission Date: November 21, 2022 Supervising Physician Co-Signing Physician Notes Agree with KRISTAL Burns as above Abd: Soft, NT, ND, +BS Feeling much better today Will be discharged and plans to followup with PCP at [facility]. Subjective She tells me she had done fairly well yesterday until last evening when she had another episode of abdominal pain. rated 9/10. no pain today. she tells me she has not moved her bowels since admission. initial CT on admission with constipation. she was given lactulose last evening but no bowel movement yet thus far. she admits that prior to admission she was having diarrhea that she uses imodium for as needed. She tells me she has had diarrhea since starting wegovy. LFTs improving. 11/22/22 t bili 0.7, AST 153, ALT 425, Alk phos 164. Physical Exam Constitutional: WD/WN, vitals as above Respiratory: normal respiratory effort, lungs clear to auscultation Cardiovascular: RRR, no murmur, no edema Gastrointestinal (Abdomen): normal bowel sounds, soft, nontender, no hepatosplenomegaly Skin: no rashes, warm and dry Psychiatric: Orientation: alert and oriented x 3 Affect: euthymic affect Results & Data Results & Data Vital Signs (Past 12 Hours) Vital Signs Temp Pulse Pulse Resp BP Pulse Ox O2 Del Method 11/22/22 08:06 98.4 F 76 18 128/80 99 Room Air 11/21/22 22:21 98.0 F 75 18 172/97 H 100 Room Air PG Care Time/CCT Total # of Minutes Spent Total Time Spent with Patient: Total time spent is greater than 50% in coordination of care (as documented) at patient's floor/unit and/or counseling patient: Coding Level of Care Code 22631 SUB INP/OBS CARE 2/35MIN Diagnoses Epigastric abdominal pain R10.13 Constipation K59.00 Transaminitis R74.01 Time Spent (min) 40
[2022-11-22] MEDS ORDERED: POLYETHYLENE (MIRALAX) 17 GM PACK PO SCH (11:00)
--- NOTE | 2022-11-22 12:38 | Discharge Summary ---
Discharge Summary Date of Service November 22, 2022 Notes For Next Care Provider Pt has a reported history of severe gingivitis/mucositis and is now presenting with stomach pain and elevated LFTs. No clear cause was elucidated in the workup here in the hospital. Please consider an underlying immunodeficiency in the differential diagnosis if further investigation is needed as outpatient. Medication Changes From Visit NEW Protonix 40mg PO BID NEW Tramadol 50mg PO q6h PRN pain Admission HPI Per Admitting Provider 67-year-old female with PMH hypothyroidism, chronic fatigue syndrome, fibromyalgia, migraines, hyperlipidemia, depression, history of upper extremity DVT s/p treatment, and other problems listed below who presents to the ED for evaluation of abdominal pain. History obtained from the patient and my personal review of outpatient PCP and rheumatology records. Patient reports that she was awoken at 1130 last night with severe epigastric abdominal pain. Patient also reports associated nausea however no vomiting. Patient rates the pain #8/10 at its worst. Pain was radiating down to the middle of her abdomen. Patient denies fevers and chills. Reports chronic diarrhea due to Wegovy injections. States that she has not noted any bright red bleeding per rectum or dark tarry stools. Reports urinary frequency. No chest pain or shortness of breath. Denies lightheadedness, dizziness, diaphoresis, syncopal event. In the ED, labs show transaminitis (T. bili 0.9, AST 997, ALT 454, alk phos 128). CT ABD/pelvis shows constipation, otherwise unremarkable. Liver US shows Mild intra and extrahepatic bile duct dilatation which may be due to the patient's post cholecystectomy state. Patient was given IV morphine, IV Zofran, IVF. Principal Dx & Hospital Course #1 = Principal Diagnosis (1) Transaminitis: Presented from home with reports of epigastric abdominal pain. In the ED, found to have transaminitis, T. bili 0.9-> 1.5, AST 997->468, ALT 454->672, alk phos 128 ->169 Noted normal LFTs from PCP visit on 11/18/22 - T. bili 0.3, AST 12, ALT 9, alk phos 83. CT ABD/pelvis-Moderate amount of fecal matter in the colon, consistent with constipation Liver ultrasound-Mild intra and extrahepatic bile duct dilatation. This may be due to the patient's post cholecystectomy state. No evidence for choledocholithiasis. MRCP- No filling defects within the common bile duct to suggest choledocholithiasis. No change in the mild anterior and extra hepatic bile duct dilatation. This may be due to the patient's postcholecystectomy state No new medications, patient denies alcohol use, hepatitis panel pending, lyme serology negative, peripheral smear without evidence of inclusion bodies, anaplasma DNA pending. Tylenol and etoh levels wnl, PT/INR wnl GI consulted - diet advanced, continue Protonix 40mg BID. AST significantly improved but a rise in ALT and Tbili. Awaiting hep panel results. If discharged, plan to repeat LFTs in one week and follow up with GI clinic in one week (2) Pulmonary nodule: CT ABD/pelvis shows Right lower lobe pulmonary nodule of indeterminate etiology. Follow-up imaging suggested in 3 months time for further assessment (3) Hypothyroidism: Continue levothyroxine (4) Migraine: On Topamax and monthly Ajovy for prophylaxis Uses Reglan, DHE injections, medical marijuana for breakthrough (5) Fibromyalgia: (6) Chronic fatigue syndrome: Controlled on Savella (7) Hyperlipidemia: Hold statin due to transaminitis Constipation Fecal retention noted on CT abd/pelvis, non-obstructive. Added bowel regimen, monitor DVT PROPHYLAXIS SQ Lovenox I spent a total of 50 minutes coordinating, documenting, and providing care for this patient excluding time spent in the performance of separately billed services. Updated Medication List Medication Instructions Recorded Confirmed Type cholecalciferol (vitamin D3) 50 50 mcg PO DAILY 08/24/20 11/20/22 History mcg (2,000 unit) capsule (Vitamin D3) coenzyme Q10 100 mg tablet 200 mg PO DAILY 08/24/20 11/20/22 History fremanezumab-vfrm 225 mg/1.5 mL 140 mg subcut MO 08/24/20 11/20/22 History subcutaneous auto-injector (Ajovy) milnacipran 50 mg tablet (Savella) 50 mg PO BID 08/24/20 11/20/22 History topiramate 50 mg tablet 50 mg PO QAM 08/24/20 11/20/22 History topiramate 50 mg tablet 100 mg PO QPM 08/24/20 11/20/22 History Medical Marijuana 1 ea miscellaneous UD PRN Headache 11/20/22 11/20/22 History dihydroergotamine 1 mg/mL 1 mg IM UD PRN Headache 11/20/22 11/20/22 History injection solution levothyroxine 75 mcg tablet 75 mcg PO DAILY 11/20/22 11/20/22 History metoclopramide HCl 10 mg tablet 10 mg PO Q6H PRN Nausea 11/20/22 11/20/22 History (Reglan) pravastatin 20 mg tablet 20 mg PO HS 11/20/22 11/20/22 History semaglutide (weight loss) 1 mg/0.5 2 mg subcut Q7D 11/20/22 11/20/22 History mL subcutaneous pen injector (Wegovy) pantoprazole 40 mg tablet,delayed 40 mg PO BID #60 tabs 11/22/22 Rx release tramadol 50 mg tablet 50 mg PO Q8H PRN severe pain #10 11/22/22 Rx tabs Hospital Stay Data Consultations 11/20/22 09:10 ED Decision to Admit Stat 11/20/22 12:00 Consult Gastroenterology Routine 11/20/22 14:47 Consult Gastroenterology Routine Diagnostic Imagining Performed 11/20/22 04:44 CT abd pelvis wo con Stat 11/20/22 06:50 US liver Stat 11/20/22 08:48 MR MRCP Stat Pending Results Patient Have Any Pending Studies at Discharge: No Discharge Instructions Given to Patient (Per Discharging Provider) Please take all medications as instructed on discharge list below. You are being given some tramadol which you are able to take with up to 1000mg of acetaminophen at home as needed for any severe pain. The warehouse team member would like to to continue taking Protonix 40mg twice daily. This is an acid neurodiagnostic technician medication for your stomach. Please discuss with your primary care physician on follow-up if continued use of this medication is needed. Please follow-up with your primary care provider to ensure you are feeling better since returning home. This visit will also be important to recheck the liver function tests and ensure that these have completely normalized. Please consider workup for underlying systemic causes of your gingivitis and consider immune deficiency if you are still having symptoms. It was a pleasure taking care of you! Please call if you have any questions or problems. You can reach a [facility] hospitalist on duty at [facility] 24 hours a day by calling [phone]. Take care of yourself. Rosalia Mitchell DO [facility]
[2022-11-23 10:32] LABS: Hepatitis B Surface Ab, Quant <5 mIU/mL (> OR = 10)
== END 2022-11-22 14:40 | disposition home or self-care (01) | DRG 948 ==
LOC: EDINP 04:19 → ED 04:19 → SUATTDRO 09:19 → 3W 14:19

== ENCOUNTER 2024-10-18 12:03 | Inpatient (IN) ==
[2024-10-18 13:16] LABS: Basophils # (auto) 0.07 K/uL (0.00-0.20); Basophils % (auto) 0.5 %; Eosinophils # (auto) 0.08 K/uL (0.00-0.50); Eosinophils % (auto) 0.6 %; Hematocrit (blood only) 50.6 % (37.0-47.0); Hemoglobin 16.4 g/dl (12.0-16.0); Immature Granulocytes % (auto) 0.7 %; Lymphocytes # (auto) 2.06 K/uL (1.20-3.40); Lymphocytes % (auto) 14.9 %; Mean Corpuscular Hemoglobin 28.6 pg (25.0-34.0); Mean Corpuscular Hgb Conc 32.4 g/dL (32.0-36.0); Mean Corpuscular Volume 88.3 fL (80.0-100.0); Mean Platelet Volume 8.8 fL (9.4-12.4); Monocytes # (auto) 0.74 K/uL (0.11-0.59); Monocytes % (auto) 5.3 %; Neutrophils # (auto) 10.81 K/uL (1.40-6.50); Platelet Count 373 K/uL (130-400); RDW Coefficient of Variation 14.1 % (11.5-14.5); RDW Standard Deviation 45.2 fL (36.4-46.3); Red Blood Count 5.73 M/uL (4.20-5.40); White Blood Count 13.86 K/ul (4.8-10.8)
[2024-10-18 13:26] LABS: Albumin Globulin Ratio 1.4 (0.9-2); Albumin Level 4.9 gm/dl (3.4-5.0); BUN Creatinine Ratio 12.7 (10-20); Bilirubin,Total 0.5 mg/dl (0.2-1.0); Calcium 10.1 mg/dl (8.6-10.3); Creatinine Clr Calc Pharmacy 49.8 ml/min; Globulin 3.4 gm/dl (2.5-4.0); Potassium 4.1 mmol/L (3.5-5.1); Total Protein 8.3 gm/dl (6.0-8.3)
--- NOTE | 2024-10-18 14:18 | Emergency Department Note ---
ED Visit Note I was consulted by the Advanced Practice Provider, Wayne Johnson PA-C. I personally made/approved the management plan and take responsibility for the patient management. I performed a substantive portion of the visit. This includes the aspects of: -History/Physical/Personally seeing the patient -MDM .
--- NOTE | 2024-10-18 14:21 | Emergency Department Note ---
History of Present Illness General Chief complaint: Abdominal Pain Stated complaint: STOMACH ACHE 3 DAYS Time Seen by Provider: 10/18/24 14:04 History of Present Illness Maximum Pain Intensity: 7 This is a 68-year-old female who presents to the emergency department via private vehicle with complaints of "abdominal pain". The patient notes that she has been experiencing abdominal pain for the past 3 days. No trauma. No injury. She notes it is more on the right upper abdomen and also the lower abdomen. She does have history of kidney stone but not recently. She denies any chest pain or dyspnea. She does have intermittent fever and significant nausea. She tried Zofran around 9 AM today with minimal relief. No vomiting. No history of SD. No back pain. Home Medications Medication Instructions Recorded Confirmed Type coenzyme Q10 100 mg tablet 200 mg PO QAM 08/24/20 10/18/24 History fremanezumab-vfrm 225 mg/1.5 mL 140 mg subcut UD 08/24/20 10/18/24 History subcutaneous auto-injector (Ajovy) milnacipran 50 mg tablet (Savella) 50 mg PO UD 08/24/20 10/18/24 History Medical Marijuana 1 ea miscellaneous UD PRN Headache 11/20/22 10/18/24 History pravastatin 20 mg tablet 20 mg PO UD 11/20/22 10/18/24 History diphenhydramine HCl 25 mg capsule 25 mg PO TID PRN Allergy Symptoms 07/08/23 10/18/24 History (Benadryl) multivitamin 1 tab PO QAM 07/08/23 10/18/24 History omega 5-jts-gxt-fish oil 1,000 mg 1 cap PO QAM 07/08/23 10/18/24 History (120 mg-180 mg) capsule (Fish Oil) levothyroxine 75 mcg tablet 88 mcg PO UD 01/07/24 10/18/24 History semaglutide (weight loss) 1 mg/0.5 1 mg subcut UD 01/07/24 10/18/24 History mL subcutaneous pen injector (Wegovy) zoledronic acid 5 mg/100 mL in 1 ea IV UD 01/07/24 10/18/24 History mannitol 5 %-water intravenous piggybck (Reclast) plecanatide 3 mg tablet (Trulance) 3 mg PO DAILY #90 tabs 01/26/24 10/18/24 Rx ondansetron HCl 4 mg tablet 4 mg PO UD PRN n/v 07/05/24 10/18/24 History ubrogepant 100 mg tablet (Ubrelvy) 100 mg PO UD 07/05/24 10/18/24 History pantoprazole 40 mg tablet,delayed 40 mg PO BID #180 tabs 08/09/24 10/18/24 Rx release Allergies Allergy/AdvReac Type Severity Reaction Status Date / Time Cephalosporins Allergy Unknown RASH & Verified 07/05/24 10:56 swelling all over Penicillins Allergy Unknown RASH & Verified 07/05/24 10:56 swelling all over NSAIDS (Non-Steroidal AdvReac Unknown Depression Verified 07/05/24 10:56 Anti-Inflamma pregabalin AdvReac Unknown DEPRESSION Verified 07/05/24 10:56 Past Med/Surg History Problem List Abnormal finding on urinalysis (Acute) Elevated lactic acid level (Acute) Leukocytosis (Acute) Gastritis Constipation hx Encounter for pre-operative examination Abdominal pain (Acute) Epigastric abdominal pain Pulmonary nodule Transaminitis Abnormal transaminases (Acute) Migraine (Acute) H/O shoulder surgery LEFT Medical History Diverticulosis History of diverticulitis Sleep apnea with lying on back/hx sleep study/no machine/don't sleep on my back. History of kidney stones Heart murmur slight Migraines Age related osteoporosis Abdominal pain since 11/2022- reason omeprazole and linzess with severe abdominal pain/liver enzymes elevate. Reason for upcoming procedure. Benign meningioma of brain regular MRI'S to monitor; [facility] Hx of blood clots ~2018 right arm; after picc line insertion; treated w/ heparin and blood thinners x 3 mos Personal history of colonic polyps Degenerative disc disease Depression Hyperlipidemia History of hypertension Chronic fatigue syndrome Hypothyroidism Fibromyalgia Surgical History Hx of colonoscopy Hx of lymph node biopsy axilla History of trigger finger release Hx of shoulder surgery open repair /left Hx of arthroscopy of shoulder left Hx of biopsy to test for Sjogren's H/O hysterectomy with oophorectomy History of cholecystectomy History of tonsillectomy Social History Smoking Status: Never smoker Cigarettes Per Day: vape medical marijuana/no tobacco. Advised npo.; Second Hand Exposure: No; Do You Dip or Chew Tobacco: No; Hx Alcohol Use: Yes Alcohol type: wine and hard liquor Alcohol Intake Frequency: Monthly or Less Hx Substance Use: Yes (advised) Last Used Substance: Days (ago) Last Used Substance Other:: "a few weeks" Substance Use Type Other:: medical marijuana vape. Preferred Language: Arabic Communication Ability: Effective Business Intelligence Engineer Required: No Beliefs That Will Affect Care: None Current Living Situation: Spouse Feels Safe at Home: Yes Assistive Devices: Glasses Review of Systems A total of 10 systems reviewed and were otherwise negative Physical Exam Vital Signs Vital Signs - 24 hr 10/18/24 12:06 10/18/24 14:32 10/18/24 15:03 Temperature 36.9 C Temperature Source Temporal Artery Scan Pulse Rate 121 H 89 Pulse Rate [Apical] 91 H Pulse Rate from SpO2 Sensor Pulse Rhythm Pulse Rhythm [Apical] Regular Pulse Strength [Apical] Normal Respiratory Rate 20 18 Respiratory Effort / Characteristics Non-Labored Non-Labored Spontaneous Respiratory Depth Normal Normal Respiratory Pattern Regular Blood Pressure 105/63 Blood Pressure [Left Arm] 120/87 Blood Pressure Mean 77 Blood Pressure Mean [Left Arm] 98 Blood Pressure Position [Left Arm] Semi-fowlers Pulse Oximetry 99 100 Oxygen Delivery Method Room Air Room Air Sepsis Recent Fever Within 48 Hours No Sepsis New/Unexplained Change in Mental Status No Sepsis Action Taken by Nursing No Action Required 10/18/24 15:11 10/18/24 16:00 10/18/24 18:27 Temperature 36.9 C Temperature Source Temporal Artery Scan Pulse Rate 88 85 Pulse Rate [Apical] 88 Pulse Rate from SpO2 Sensor Pulse Rhythm Regular Pulse Rhythm [Apical] Regular Pulse Strength [Apical] Normal Respiratory Rate 20 20 Respiratory Effort / Characteristics Non-Labored Spontaneous Respiratory Depth Normal Respiratory Pattern Regular Blood Pressure Blood Pressure [Left Arm] 132/80 Blood Pressure Mean Blood Pressure Mean [Left Arm] 97 Blood Pressure Position [Left Arm] Semi-fowlers Pulse Oximetry 98 98 Oxygen Delivery Method Room Air Room Air Sepsis Recent Fever Within 48 Hours Sepsis New/Unexplained Change in Mental Status Sepsis Action Taken by Nursing 10/18/24 18:30 10/18/24 18:33 10/18/24 19:00 Temperature 36.8 C Temperature Source Oral Pulse Rate 82 Pulse Rate [Apical] 82 82 Pulse Rate from SpO2 Sensor 82 Pulse Rhythm Pulse Rhythm [Apical] Regular Pulse Strength [Apical] Normal Respiratory Rate 20 23 16 Respiratory Effort / Characteristics Non-Labored Spontaneous Respiratory Depth Normal Respiratory Pattern Regular Blood Pressure 126/67 Blood Pressure [Left Arm] 126/67 136/72 Blood Pressure Mean 86 Blood Pressure Mean [Left Arm] 86 93 Blood Pressure Position [Left Arm] Lying Pulse Oximetry 98 95 99 Oxygen Delivery Method Room Air Room Air Sepsis Recent Fever Within 48 Hours Sepsis New/Unexplained Change in Mental Status Sepsis Action Taken by Nursing 10/18/24 19:00 10/18/24 19:30 10/18/24 20:06 Temperature Temperature Source Pulse Rate 84 84 91 H Pulse Rate [Apical] Pulse Rate from SpO2 Sensor 91 H Pulse Rhythm Pulse Rhythm [Apical] Pulse Strength [Apical] Respiratory Rate 17 16 12 Respiratory Effort / Characteristics Respiratory Depth Respiratory Pattern Blood Pressure 136/72 150/79 H 134/99 Blood Pressure [Left Arm] Blood Pressure Mean 104 102 110 Blood Pressure Mean [Left Arm] Blood Pressure Position [Left Arm] Pulse Oximetry 100 97 98 Oxygen Delivery Method Sepsis Recent Fever Within 48 Hours Sepsis New/Unexplained Change in Mental Status Sepsis Action Taken by Nursing 10/18/24 20:30 Temperature Temperature Source Pulse Rate 89 Pulse Rate [Apical] Pulse Rate from SpO2 Sensor Pulse Rhythm Pulse Rhythm [Apical] Pulse Strength [Apical] Respiratory Rate 16 Respiratory Effort / Characteristics Respiratory Depth Respiratory Pattern Blood Pressure 146/78 H Blood Pressure [Left Arm] Blood Pressure Mean 104 Blood Pressure Mean [Left Arm] Blood Pressure Position [Left Arm] Pulse Oximetry 97 Oxygen Delivery Method Sepsis Recent Fever Within 48 Hours Sepsis New/Unexplained Change in Mental Status Sepsis Action Taken by Nursing VITAL SIGNS - Vital signs and nursing notes were reviewed. Tachycardic 121, otherwise stable and afebrile. GENERAL -68-year-old female appearing her stated age who is in no acute distress. Communicates well with provider and answers questions appropriately. SKIN - Without rashes. HEAD - NC/AT. EYES - PERRL with EOMI bilaterally. Sclera anicteric. Palpebral conjunctiva pink and moist with no injection noted. MOUTH/OROPHARYNX - Without perioral cyanosis. NECK - Neck with FROM. No nuchal rigidity. LUNGS -CTA CARDIAC - RRR ABDOMEN - Abdominal contour normal without pulsations or visible masses. BS normoactive all four quadrants. Right mid abdominal tenderness to palpation. No guarding. No rigidity. No palpable masses, hepatosplenomegaly, or ascites noted. EXTREMITIES - No clubbing or peripheral cyanosis. +5/5 strength noted in UE/LE bilaterally. NEUROLOGIC - Cranial nerves II through XII grossly intact. PSYCH -alert, oriented and pleasant on exam. Course Administered Medications Sodium Chloride (Nss) 1,000 mls @ 125 mls/hr IV .Q8H NARGIS Stop: 10/19/24 15:59 Last Admin: 10/18/24 16:14 Dose: 125 mls/hr Documented By: VIPUL Metronidazole (Flagyl) 500 mg in 100 mls @ 100 mls/hr IV Q8H NARGIS; Protocol Stop: 10/28/24 19:29 Last Admin: 10/18/24 20:08 Dose: 100 mls/hr Documented By: ROQUE Magnesium Hydroxide (Magnesium Hydroxide Susp 30 Ml Udc) 30 ml PO Q12H [facility] Stop: 11/17/24 19:14 Last Admin: 10/18/24 20:08 Dose: 30 ml Documented By: NRVilma Discontinued Medications Sodium Chloride (Nss) 1,000 mls @ 999 mls/hr IV .Q1H1M ONE Stop: 10/18/24 15:10 Last Infusion: 10/18/24 18:35 Dose: Infused Documented By: Admin: 10/18/24 14:24 Dose: 999 mls/hr Documented By: Sodium Chloride (Nss) 1,000 mls @ 999 mls/hr IV .Q1H1M ONE Stop: 10/18/24 17:36 Last Infusion: 10/18/24 18:35 Dose: Infused Documented By: Admin: 10/18/24 16:58 Dose: 999 mls/hr Documented By: VIPUL Cefepime HCl (Maxipime 2000mg) 2,000 mg in 20 mls @ 5 mls/min IV NOW STA; Protocol Stop: 10/18/24 17:12 Last Admin: 10/18/24 17:32 Dose: 5 mls/min Documented By: VIPUL Morphine Sulfate (Morphine Sulfate 4 Mg/Ml 1 Ml Carp\\Vial) 4 mg IV NOW STA Stop: 10/18/24 14:17 Last Admin: 10/18/24 14:23 Dose: 4 mg Documented By: Morphine Sulfate (Morphine Sulfate 2 Mg/Ml Carp) 2 mg IV NOW STA Stop: 10/18/24 15:12 Last Admin: 10/18/24 15:22 Dose: 2 mg Documented By: ROQUE Ondansetron HCl (Ondansetron Inj 2 Mg/Ml 2 Ml Vial) 4 mg IV NOW STA Stop: 10/18/24 14:17 Last Admin: 10/18/24 14:24 Dose: 4 mg Documented By: Medical Decision Making Laboratory Data 10/18/24 12:43 10/18/24 12:43 Lab Results 10/18/24 10/18/24 10/18/24 Range/Units 12:43 16:12 16:14 WBC 13.86 H (4.8-10.8) K/ul RBC 5.73 H (4.20-5.40) M/uL Hgb 16.4 H (12.0-16.0) g/dl Hct 50.6 H (37.0-47.0) % MCV 88.3 (80.0-100.0) fL MCH 28.6 (25.0-34.0) pg MCHC 32.4 (32.0-36.0) g/dL RDW Std Deviation 45.2 (36.4-46.3) fL RDW Coeff of Blessing 14.1 (11.5-14.5) % Plt Count 373 (130-400) K/uL MPV 8.8 L (9.4-12.4) fL Immature Gran % (Auto) 0.7 % Neut % (Auto) 78.0 % Lymph % (Auto) 14.9 % Pettis % (Auto) 5.3 % Eos % (Auto) 0.6 % Baso % (Auto) 0.5 % Neut # (Auto) 10.81 H (1.40-6.50) K/uL Lymph # (Auto) 2.06 (1.20-3.40) K/uL Pettis # (Auto) 0.74 H (0.11-0.59) K/uL Eos # (Auto) 0.08 (0.00-0.50) K/uL Baso # (Auto) 0.07 (0.00-0.20) K/uL Immature Gran # (Auto) 0.10 (0.01-0.20) K/uL Sodium 136 (136-145) mmol/L Potassium 4.1 (3.5-5.1) mmol/L Chloride 103 (98-107) mmol/L Carbon Dioxide 25 (21-32) mmol/L Anion Gap 8 (3-11) BUN 17 (6-23) mg/dl Creatinine 1.34 H (0.6-1.2) mg/dl Est Cr Clr Drug Dosing 49.8 ml/min eGFR 42.66 BUN/Creatinine Ratio 12.7 (10-20) Glucose 96 (70-99(Fasting)) mg/dl Lactate 2.3 H* (0.4-2.0) mmol/L Calcium 10.1 (8.6-10.3) mg/dl Total Bilirubin 0.5 (0.2-1.0) mg/dl AST 22 (13-39) U/L ALT 44 (7-52) U/L Alkaline Phosphatase 108 H (34-104) U/L Troponin I High Sens 4.5 < 2.3 (0-14) pg/ml Total Protein 8.3 (6.0-8.3) gm/dl Albumin 4.9 (3.4-5.0) gm/dl Globulin 3.4 (2.5-4.0) gm/dl Albumin/Globulin Ratio 1.4 (0.9-2) Lipase 42 (11-82) U/L Procalcitonin 0.06 (0-0.5) ng/ml Urine Color Yellow Urine Appearance Clear (Clear) Urine pH 5.5 (4.5-7.5) Ur Specific [place] 1.008 (1.000-1.030) Urine Protein Negative (Negative) Urine Glucose (UA) Negative (Negative) Urine Ketones Negative (Negative) Urine Blood Negative (Negative) Urine Nitrite Negative (Negative) Urine Bilirubin Negative (Negative) Urine Urobilinogen Negative (Negative) Ur Leukocyte Esterase 2+ H (Negative) Urine WBC (Auto) 21-50 H (0-5) /hpf Urine RBC (Auto) 0-2 (0-2) /hpf U Hyaline Cast (Auto) 6-10 H (0-2) /lpf U Epithel Cells (Auto) 0-2 (0-2) /hpf Urine Bacteria (Auto) None Seen (None Seen) 10/18/24 Range/Units 18:50 WBC (4.8-10.8) K/ul RBC (4.20-5.40) M/uL Hgb (12.0-16.0) g/dl Hct (37.0-47.0) % MCV (80.0-100.0) fL MCH (25.0-34.0) pg MCHC (32.0-36.0) g/dL RDW Std Deviation (36.4-46.3) fL RDW Coeff of Blessing (11.5-14.5) % Plt Count (130-400) K/uL MPV (9.4-12.4) fL Immature Gran % (Auto) % Neut % (Auto) % Lymph % (Auto) % Pettis % (Auto) % Eos % (Auto) % Baso % (Auto) % Neut # (Auto) (1.40-6.50) K/uL Lymph # (Auto) (1.20-3.40) K/uL Pettis # (Auto) (0.11-0.59) K/uL Eos # (Auto) (0.00-0.50) K/uL Baso # (Auto) (0.00-0.20) K/uL Immature Gran # (Auto) (0.01-0.20) K/uL Sodium (136-145) mmol/L Potassium (3.5-5.1) mmol/L Chloride (98-107) mmol/L Carbon Dioxide (21-32) mmol/L Anion Gap (3-11) BUN (6-23) mg/dl Creatinine (0.6-1.2) mg/dl Est Cr Clr Drug Dosing ml/min eGFR BUN/Creatinine Ratio (10-20) Glucose (70-99(Fasting)) mg/dl Lactate 0.6 (0.4-2.0) mmol/L Calcium (8.6-10.3) mg/dl Total Bilirubin (0.2-1.0) mg/dl AST (13-39) U/L ALT (7-52) U/L Alkaline Phosphatase (34-104) U/L Troponin I High Sens (0-14) pg/ml Total Protein (6.0-8.3) gm/dl Albumin (3.4-5.0) gm/dl Globulin (2.5-4.0) gm/dl Albumin/Globulin Ratio (0.9-2) Lipase (11-82) U/L Procalcitonin (0-0.5) ng/ml Urine Color Urine Appearance (Clear) Urine pH (4.5-7.5) Ur Specific [place] (1.000-1.030) Urine Protein (Negative) Urine Glucose (UA) (Negative) Urine Ketones (Negative) Urine Blood (Negative) Urine Nitrite (Negative) Urine Bilirubin (Negative) Urine Urobilinogen (Negative) Ur Leukocyte Esterase (Negative) Urine WBC (Auto) (0-5) /hpf Urine RBC (Auto) (0-2) /hpf U Hyaline Cast (Auto) (0-2) /lpf U Epithel Cells (Auto) (0-2) /hpf Urine Bacteria (Auto) (None Seen) Imaging Data Radiologist's Impression: Abdomen/Pelvis CT 10/18/24 14:[address] WITHOUT CONTRAST CT DOSE: 1444.92 mGy.cm HISTORY: abd pain TECHNIQUE: Multiaxial CT images of the abdomen and pelvis were performed without contrast. A dose lowering technique was utilized adhering to the principles of ALARA. COMPARISON STUDY: 11/20/2022 FINDINGS: Stable small right lower lobe pulmonary nodule. ABDOMEN: Gallbladder is surgically absent. Liver, spleen, pancreas, and adrenal glands have an unremarkable IV contrast appearance. Kidneys show no hydronephrosis. No renal or ureteral calculi seen. There are mild atherosclerotic calcifications. No abdominal aortic aneurysm. Pelvis: Uterus is absent. No adnexal mass. Urinary bladder is nondistended. There is moderate retained stool. No bowel inflammation or obstruction. No free fluid, free air, or abscess. No enlarged adenopathy. Osseous structures: There is degenerative disc disease at L5-S1. IMPRESSION: No acute findings. ACT 112: Negative or not required by law. The above report was generated using voice recognition software. It may contain grammatical, syntax or spelling errors. Electronically signed by: Eliezer Downs M.D. 10/18/2024 3:20 PM Chest X-Ray 10/18/24 14:13 XR chest 1V portable CLINICAL HISTORY: abd pain, nausea COMPARISON STUDY: 06/19/2017 FINDINGS: Heart size and pulmonary vasculature are normal. No effusion or consolidation. IMPRESSION: No pneumonia seen. ACT 112: Negative or not required by law. Electronically signed by: Eliezer Downs M.D. 10/18/2024 2:51 PM MDM Narrative Patient was seen and evaluated as above in room A09. Review was performed of nursing notes and vital signs. I did review pertinent previous visits and patient history. After obtaining a thorough history and physical examination the above work up was performed. Patient presents to us today for evaluation of abdominal discomfort x 3 days with intermittent nausea, borderline fever. EKG per my interpretation reveals sinus tachycardia at a rate of 111 bpm. QTc 437. QRS 82. No ST elevation. T wave inversions noted. Troponin x 2 negative. Compared to previous EKG the T wave inversions are new but again the patient has no chest pain today. Patient is noted to be tachycardic at 121 on arrival. Patient does present during period of elevated volume and acuity in the emergency department. I did initially see the patient in the [facility] area but immediately had her moved to room A09. Leukocytosis 13.86. There is suggestion of hemoconcentration noting hemoglobin 16.4. She appears clinically dry. Mild MELISSA with creatinine 1.34. Troponin x 2 negative. Lipase normal. 1 L administered and patient appeared to be that better hydrated and a CT scan of the abdomen/pelvis was obtained without contrast noting the patient's mild MELISSA today. Maintenance fluids then ordered. CT was essentially negative for acute process. Chest x-ray per my interpretation negative for acute process. I then added on lactate, blood culture, procalcitonin. Procalcitonin within normal range but detectable. Lactate elevated 2.3 and this is after 1 L of fluid, I then added another liter that may then be followed by the maintenance fluids. Repeat lactate was normal. Urinalysis then resulted suggesting what is likely a potential UTI noting amount of leukocytes and white blood cells with a rather noncontaminated sample noting no epithelial cells. No nitrites. No bacteria. This may be causing the patient's abdominal pain. Noting the patient's leukocytosis, tachycardia, abdominal discomfort, abnormal urinalysis with subjective fevers intermittently over the past few days do believe that antibiotics are warranted. Patient does have noted allergies to penicillin and cephalosporins in the EMR. We discussed multiple other options of antibiotics and I also reviewed these with the ED clinical pharmacist. Patient's reaction to cephalosporins was over 20 years ago she notes and was not a rash at all or throat swelling. No hives. She notes it was itchiness and when she itched the skin began to swell a little bit. This lasted only until the medication wore off and was not long-term. I discussed multiple options with the patient. Ultimately, at 1704 HRS we agreed to try IV cefepime noting it is a later generation cephalosporin in this closely monitored setting. It is felt that the benefit outweighed risk and patient was in agreement to proceed. Patient was rechecked multiple times. No concerning reaction noted. I do believe that further evaluation and management in the inpatient setting is warranted. I did consider rerepeating CT imaging with IV contrast but at this time noting the lactate cleared with fluids and with the MELISSA we will hold off at this time pending clinical course. Case discussed with the hospitalist service. Please order further documentation regarding her stay. In the evaluation and treatment this patient the following differential diagnoses were entertained: diverticulitis, bowel obstruction, ischemia, UTI, pyelonephritis, sepsis, among others Impression & Plan Abdominal pain, Leukocytosis, Elevated lactic acid level, Abnormal finding on urinalysis Discharge Plan Visit Data Chief Complaint: Abdominal Pain Stated Complaint: STOMACH ACHE 3 DAYS ED Provider: Ashutosh Smalls ED Midlevel Provider: Wayne Johnson Discharge Problem: Abdominal pain, Leukocytosis, Elevated lactic acid level, Abnormal finding on urinalysis Patient Disposition: Admitted As Inpatient Condition: Good Discharge Instructions Interventions: ED Discharge Assessment Last Done: 10/18/24 20:38 Forms Stand Alone Forms: My [facility] [address] [employer] Prescriptions Prescriptions: No Action Trulance 3 mg tablet 3 mg PO DAILY Qty: 90 3RF Rx Instructions: filled 07/27 90 day supply pantoprazole 40 mg tablet,delayed release (DR/EC) 40 mg PO BID Qty: 180 1RF Ubrelvy 100 mg tablet 100 mg PO UD Rx Instructions: 100 mg po as directed . No fill history available unable to verify ondansetron HCl 4 mg tablet 4 mg PO UD PRN (Reason: n/v) Rx Instructions: 4 mg po q8h prn no fill history unable to verify zoledronic [id number] [Reclast] 5 mg/100 mL piggyback 1 ea IV UD Rx Instructions: no fill history, unable to verify Wegovy 1 mg/0.5 mL pen injector 1 mg subcut UD Rx Instructions: 1 mg subcut wk. no fill history unable to verify Savella 50 mg tablet 50 mg PO UD Rx Instructions: 50 mg po bid. last filled 06/26 90 day supply coenzyme Q10 100 mg Tablet 200 mg PO QAM Rx Instructions: otc unable to verify Ajovy Autoinjector 225 mg/1.5 mL auto-injector 140 mg subcut UD Rx Instructions: 140 mg monthly. last filled 04/13 28 day supply pravastatin 20 mg Tablet 20 mg PO UD Rx Instructions: 20 mg po hs. no fill history available Medical Marijuana 1 ea miscellaneous UD PRN (Reason: Headache) Rx Instructions: unable to verify levothyroxine 75 mcg tablet 88 mcg PO UD Rx Instructions: original- 88 mcg and 100mcg on the weekends No fill history available, unable to verify multivitamin Tablet 1 tab PO QAM Rx Instructions: otc unable to verify diphenhydramine HCl [Benadryl] 25 mg Capsule 25 mg PO TID PRN (Reason: Allergy Symptoms) Rx Instructions: otc unable to verify omega 8-ybu-zhg-fish oil [Fish Oil] 1,000 mg (120 mg-180 mg) Capsule 1 cap PO QAM Rx Instructions: otc unable to verify Referrals Referrals: Elpidio Wallcae MD [Primary Care Provider] - Discharge Problem: Abdominal pain Qualifiers: Abdominal location: generalized Qualified Code(s): R10.84 - Generalized abdominal pain
[2024-10-18] MEDS: MoRPHine SULFATE 4 MG/ML 1 ML CARP\\VIAL IV STA (14:23)
[2024-10-18] MEDS: SODIUM CHLORIDE 0.9% 1,000 ML IV ONE ×2 (14:24→16:58)
[2024-10-18] MEDS: ONDANSETRON INJ 2 MG/ML 2 ML VIAL IV STA (14:24)
[2024-10-18 14:41] LABS: Troponin I High Sensitivity 4.5 pg/ml (0-14)
--- NOTE | 2024-10-18 14:53 | XRay Report ---
XR chest 1V portable CLINICAL HISTORY: abd pain, nausea COMPARISON STUDY: 06/19/2017 FINDINGS: Heart size and pulmonary vasculature are normal. No effusion or consolidation. IMPRESSION: No pneumonia seen. ACT 112: Negative or not required by law. Electronically signed by: Eliezer Downs M.D. 10/18/2024 2:51 PM
[2024-10-18] MEDS: MoRPHine SULFATE 2 MG/ML CARP IV STA (15:22)
--- NOTE | 2024-10-18 15:23 | CT Scan Report ---
ABDOMEN AND PELVIS CT WITHOUT CONTRAST CT DOSE: 1444.92 mGy.cm HISTORY: abd pain TECHNIQUE: Multiaxial CT images of the abdomen and pelvis were performed without contrast. A dose lo wering technique was utilized adhering to the principles of ALARA. COMPARISON STUDY: 11/20/2022 FINDINGS: Stable small right lower lobe pulmonary nodule. ABDOMEN: Gallbladder is surgically absent. Liver, spleen, pancreas, and adrenal glands have an unrema rkable IV contrast appearance. Kidneys show no hydronephrosis. No renal or ureteral calculi seen. The re are mild atherosclerotic calcifications. No abdominal aortic aneurysm. Pelvis: Uterus is absent. No adnexal mass. Urinary bladder is nondistended. There is moderate retaine d stool. No bowel inflammation or obstruction. No free fluid, free air, or abscess. No enlarged adeno marianna. Osseous structures: There is degenerative disc disease at L5-S1. IMPRESSION: No acute findings. ACT 112: Negative or not required by law. The above report was generated using voice recognition software. It may contain grammatical, syntax o r spelling errors. Electronically signed by: Eliezer Downs M.D. 10/18/2024 3:20 PM
[2024-10-18] MEDS: SODIUM CHLORIDE 0.9% 1,000 ML IV SCH (16:14)
[2024-10-18 16:40] LABS: Appearance Urine Clear (Clear); Bacteria Urine Automated None Seen (None Seen); Bilirubin Urine Negative (Negative); Blood Urine Negative (Negative); Color Urine Yellow; Epithelial Cell Urine Auto 0-2 /hpf (0-2); Glucose Urine UA Negative (Negative); Ketones Urine Negative (Negative); Leukocyte Esterase Urine 2+ (Negative); Nitrite Urine Negative (Negative); Protein Urine Negative (Negative); RBC Urine Automated 0-2 /hpf (0-2); Specific Gravity Urine 1.008 (1.000-1.030); Urobilinogen Urine Negative (Negative); WBC Urine Automated 21-50 /hpf (0-5); pH Urine 5.5 (4.5-7.5)
[2024-10-18] MEDS: CEFEPIME 2000MG 2,000 MG/20 ML SYR IV STA (17:32)
--- NOTE | 2024-10-18 18:49 | History & Physical Report ---
Date of Service October 18, 2024 Assessment & Plan (1) Abdominal pain: Plan Assessment/plan Patient is a 68-year-old female with past medical history of presented to the hospital with abdominal pain constipation and fever. Abdominal pain Possible early diverticulitis Possible UTI Constipation Acute kidney injury Patient presents with fever, abdominal pain and constipation for several days Leukocytosis present on admission Lactate elevated Creatinine elevated from baseline to 1.34 CT abdomen and pelvis did not show any acute finding, stool burden present Chest x-rayno acute finding Lipase within normal limits Continue on cefepime and Flagyl. Will follow-up on urine and blood culture Will start on clear liquid diet; will provide milk of magnesia bid for constipation IV fluids NS at 125cc cc/h Antiemetics Pain control with Tylenol, as needed morphine Chronic conditions; Hypothyroidismcontinue levothyroxine Hyperlipidemia continue on pravastatin Fibromyalgia-follows with rheumatology; on Nikolas Morales Time spent evaluating patient, direct bedside care, chart review, placing orders, interpretation of diagnostic studies, discussion with consultants, patient, and family members, as well as other required patient management activities is 60 minutes Please note the above document was generated using voice recognition software. It may contain grammatical, syntax or spelling errors. Any formal questions or concerns about the content, text or information contained within the body of this dictation should be directly addressed to the provider for clarification History of Present Illness Chief Complaint: Abdominal pain, fever for 3 days Primary Care Provider: Elpidio Arias MD History obtained from interview with the patient and chart review. Past medical history of hypothyroidism, dyslipidemia, class II obesity, CKD stage IIIa, migraine, fibromyalgia Patient presents to the hospital with abdominal pain. The abdomen pain is in right lower quadrant and lower abdomen. It is associated with intermittent fever and nausea.Tmax of 99 F at home Patient reports constipation for several days as well. Her last bowel movement was yesterday after she took a laxative. She denies dysuria, increased urgency, increased frequency, chest pain or shortness of breath On presentation to the ED, she was normotensive, afebrile and saturating well on room air. She was found to have elevated WBC and elevated creatinine. CT abdomen and pelvis shows signs of constipation; no other acute finding. Creatinine elevated to 1.34. Lactate elevated to 2.3. Urinalysis shows 2+ leukocytes esterase, increased WBC. Patient referred for admission and further workup. Allergies Allergy/AdvReac Type Severity Reaction Status Date / Time Cephalosporins Allergy Unknown RASH & Verified 07/05/24 10:56 swelling all over Penicillins Allergy Unknown RASH & Verified 07/05/24 10:56 swelling all over NSAIDS (Non-Steroidal AdvReac Unknown Depression Verified 07/05/24 10:56 Anti-Inflamma pregabalin AdvReac Unknown DEPRESSION Verified 07/05/24 10:56 Home Medications Medication Instructions Recorded Confirmed Type coenzyme Q10 100 mg tablet 200 mg PO QAM 08/24/20 10/18/24 History fremanezumab-vfrm 225 mg/1.5 mL 140 mg subcut UD 08/24/20 10/18/24 History subcutaneous auto-injector (Ajovy) milnacipran 50 mg tablet (Savella) 50 mg PO UD 08/24/20 10/18/24 History Medical Marijuana 1 ea miscellaneous UD PRN Headache 11/20/22 10/18/24 History pravastatin 20 mg tablet 20 mg PO UD 11/20/22 10/18/24 History diphenhydramine HCl 25 mg capsule 25 mg PO TID PRN Allergy Symptoms 07/08/23 10/18/24 History (Benadryl) multivitamin 1 tab PO QAM 07/08/23 10/18/24 History omega 7-gjm-iou-fish oil 1,000 mg 1 cap PO QAM 07/08/23 10/18/24 History (120 mg-180 mg) capsule (Fish Oil) levothyroxine 75 mcg tablet 88 mcg PO UD 01/07/24 10/18/24 History semaglutide (weight loss) 1 mg/0.5 1 mg subcut UD 01/07/24 10/18/24 History mL subcutaneous pen injector (Wegovy) zoledronic acid 5 mg/100 mL in 1 ea IV UD 01/07/24 10/18/24 History mannitol 5 %-water intravenous piggybck (Reclast) plecanatide 3 mg tablet (Trulance) 3 mg PO DAILY #90 tabs 01/26/24 10/18/24 Rx ondansetron HCl 4 mg tablet 4 mg PO UD PRN n/v 07/05/24 10/18/24 History ubrogepant 100 mg tablet (Ubrelvy) 100 mg PO UD 07/05/24 10/18/24 History pantoprazole 40 mg tablet,delayed 40 mg PO BID #180 tabs 08/09/24 10/18/24 Rx release Past Med/Surg History Problem List Gastritis Constipation hx Encounter for pre-operative examination Abdominal pain Epigastric abdominal pain Pulmonary nodule Transaminitis Abnormal transaminases (Acute) Migraine (Acute) H/O shoulder surgery LEFT Medical History Diverticulosis History of diverticulitis Sleep apnea with lying on back/hx sleep study/no machine/don't sleep on my back. History of kidney stones Heart murmur slight Migraines Age related osteoporosis Abdominal pain since 11/2022- reason omeprazole and linzess with severe abdominal pain/liver enzymes elevate. Reason for upcoming procedure. Benign meningioma of brain regular MRI'S to monitor; [facility] Hx of blood clots ~2018 right arm; after picc line insertion; treated w/ heparin and blood thinners x 3 mos Personal history of colonic polyps Degenerative disc disease Depression Hyperlipidemia History of hypertension Chronic fatigue syndrome Hypothyroidism Fibromyalgia Surgical History Hx of colonoscopy Hx of lymph node biopsy axilla History of trigger finger release Hx of shoulder surgery open repair /left Hx of arthroscopy of shoulder left Hx of biopsy to test for Sjogren's H/O hysterectomy with oophorectomy History of cholecystectomy History of tonsillectomy Social History Smoking Status: Never smoker Cigarettes Per Day: vape medical marijuana/no tobacco. Advised npo.; Second Hand Exposure: No; Do You Dip or Chew Tobacco: No; Hx Alcohol Use: Yes Alcohol type: wine and hard liquor Alcohol Intake Frequency: Monthly or Less Hx Substance Use: Yes (advised) Last Used Substance: Days (ago) Last Used Substance Other:: "a few weeks" Substance Use Type Other:: medical marijuana vape. Preferred Language: Khmer Communication Ability: Effective Non Food Receiving Clerk Required: No Beliefs That Will Affect Care: None Current Living Situation: Spouse Feels Safe at Home: Yes Assistive Devices: Glasses Physical Exam Physical Exam: On physical examination; Constitutional: Awake alert oriented x 3; not in distress. Respiratory: Bilateral vesicular breath sound. Cardiovascular: RRR, no murmur, no edema Vessels: no JVD or carotid bruit Chest: normal inspection of chest Abdomen: Tenderness present in suprapubic region and right lower quadrant. Musculoskeletal: no cyanosis or clubbing, extremities motor strength 5/5 Skin: no rashes, warm and dry normal turgor Neurologic: PERRL, EOMI, accommodation nl, no face palsy, no dysarthria CN's II- XI intact bilaterally and moves all extremities Psychiatric: A+Ox3, euthymic affect Results & Data Results & Data Vital Signs (Past 12 Hours) Vital Signs Temp Pulse Pulse Resp BP BP Pulse Ox 10/18/24 18:30 36.8 C 82 20 126/67 98 10/18/24 18:27 85 10/18/24 16:00 36.9 C 88 20 132/80 98 10/18/24 15:11 88 20 98 10/18/24 15:03 89 10/18/24 14:32 91 H 18 120/87 100 10/18/24 12:06 36.9 C 121 H 20 105/63 99 O2 Del Method 10/18/24 18:30 Room Air 10/18/24 18:27 10/18/24 16:00 Room Air 10/18/24 15:11 Room Air 10/18/24 15:03 10/18/24 14:32 Room Air 10/18/24 12:06 Room Air
[2024-10-18] MEDS ORDERED: ONDANSETRON INJ 2 MG/ML 2 ML VIAL IV PRN (19:10)
[2024-10-18] MEDS ORDERED: ACETAMINOPHEN 325 MG TAB PO PRN (19:10)
[2024-10-18] MEDS ORDERED: MoRPHine SULFATE 2 MG/ML CARP IV PRN ×2 (19:24)
--- OUTSIDE RECORDS SUMMARY | 2024-10-18 19:31 | External Medical Summary | Summary of Care ---
Author Name Unknown Organization [facility] Address [address] [place] [address] Phone [phone] Care Team Providers Care Rn Med Surg Name Role Phone Rich Fortune MD Primary Care Provider [phone] Encounter Details Date Type Department Care Team (Late st Contact Info) Description 08/26/2024 Population Health External Data Unspecified Department Allergies Active Allergy Reactions Criticality Noted Date Comments Antipyrine 10/28/2019 Other Reaction(s): Depression Cefuroxime 06/11/2005 Other Reaction(s): Unknown Cephalosporins Itching 01/22/2011 If scratching, everything puffs up Pregabalin Psych complications 08/31/2015 Depression Nsaids Psych complications 08/31/2015 Depression Penicillins Itching 01/22/2011 If scratching, everything puffs up Simvastatin 04/26/2010 Other Reaction(s): Weakness present Thiethylperazine 08/30/2004 Other Reaction(s): Anxiety documented as of this encounter (statuses as of 08/26/2024) Medications Coenzyme Q10 (COQ10) 200 MG CAPS Take by mouth daily. Active Cholecalciferol (VITAMIN D3) 5000 units Tablet Take 2,500 Units by mouth daily. Active AJOVY 225 MG/1.5ML SOAJ Every Month . 0 Active Pravastatin Sodium 40 MG Oral Tablet (Pravachol) Take 0.5 Tablets by mouth at bedtime. 1 Active Levothyroxine Sodium 75 MCG Oral Tablet Take 1 Tablet by mouth daily first thing in the morning. (at least 30 min prior to breakfast or other meds) Active Continuation of patient use of medical marijuana is approved Use as Directed 3 Active Lidocaine 5 % External Patch (Lidoderm) APPLY ONE PATCH TO SKIN EVERY DAY NEEDED FOR PAIN. MAX OF 1 PATCH PER DAY. LEAVE PATCH ON FOR 12 HOURS AND MUST LEAVE PATCH OFF FOR 12 HOURS 3 Active One A Day Women 50 Plus Oral Tablet Chewable Take by mouth. Activ e [place] 3 1200 MG Oral Capsule Take by mouth. Ac tive Pantoprazole Sodium 40 MG Oral Tablet Delayed Release (Protonix)Indicati ons:GERD (gastroesophageal reflux disease) Take 1 Tablet by mouth 2 times a day. 180 Tablet 1 3 Active Savella 50 MG Oral Tablet (Milnacipran HCl) TAKE 1 TABLET TWICE A DAY 180 Tablet 3 4 Active Ondansetron 4 MG Oral Tablet Disintegrating (Zofran) 4 Active Trulance 3 MG Oral Tablet 4 Active Ubrogepant 100 MG Oral Tablet (Ubrelvy) Take 50 mg by mouth. 4 Active Zoledronic Acid 5 MG/100ML Intravenous Solution (Reclast) Administer intravenously. 4 029 Active documented as of this encounter (statuses as of 08/26/2024) Active Problems Problem Noted Date Diagnosed Date Age-related osteoporosis wit hout current pathological fracture 06/05/2023 Obesity, Class II, BMI 35-39.9, isolated (see ac tual BMI) 11/26/2022 Lumbar degenerative disc disease 11/26/2022 Medical marijuana use 11/26/2022 Chronic kidney disease, stage 3a 05/14/2021 Overview: Per CKD protocol Periodic limb movement disorder (PLMD) 9 Positional sleep apnea 02/23/2019 Dyslipidemia 08/31/2015 Postablative hypothyroidism 06/16/2014 Migraine without aura and wi thout status migrainosus, not intractable 09/29/2013 Depression with anxiety 05/12/2013 Fibromyalgia 12/24/2012 documented as of this encounter (statuses as of 08/26/2024) Resolved Problems Problem Noted Date Diagnosed Date Resolved Date Dyslipidemia, goal LDL below 70 07/13/2021 11/26/2022 HTN, goal below 130/80 07/13/202111/27 Prediabetes 05/14/2021 08/14/2023 Overview: Per Prediabetes protocol Essential hypertension with goal blood pressure less than 130/80 03/17/2019 11/26/2022 STAGES Research Study*[id number] 12/30/2018 02/15/2019 Overview (01/07/2019): [employer] [facility] [employer] ([employer]) - IRB# [id number] PI: Dr. Jackeline Mayo Study contact: Ronna Duncan, Client Consultant I - [id number] Hypersomnolence 10/13/2018 11/26/2022 Hypnagogic hallucinations 10/13/2018 Insomnia 10/13/2018 11/26/2022 Atypical chest pain 08/31/2015 11/27/19 23 Hypotension due to drugs 08/31/2015 Hypothyroid 08/31/2015 11/26/2022 H/O Graves' disease 06/16/2014 11/27/19 23 Intractable chronic migraine without aura 12/14/2013 11/26/2022 Chronic daily headache 09/29/201311/26 Cervicalgia 09/29/2013 11/26/2022 Pruritic disorder 12/25/2012 11/26/2022 Overview (12/25/2012): began 09/2012 Chronic fatigue syndrome 12/24/2012 Other specified acquired hypothyroidism 06/26/2011 06/16/2014 Myalgia and myositis 01/22/2011 019 documented as of this encounter (statuses as of 08/26/2024) Immunizations Name Administration Dates Next Due 01/09/2016, 6,2015, 016,07/11/2015,07/11/2015,04/11/2015,03/2015,08/09/2014,05/03/2014,01/31/2014 2014 COVID-19 mRNA, LNP-s, No Pre serve, 2-Dose Series ([employer]) 07/02/2021,10/13/2020,09/16/2020 Covid-19, Mrna, Lnp-s, Pf, Bivalent, 30 Mcg, IM, 12 yrs and above ([employer]) 05/27/2022 Seasonal Influenza, QUAD, wi th Preserv, 6 mons & Above, 0.5 mL, IM 05/27/2022 Seasonal Influenza, Quadriva lent, No Preserve, Mdck 04/18/2020 documented as of this encounter Social History Tobacco Use Types Packs/Day Years Used Date Smoking Tobacco: Never Smokeless Tobacco: Never Comments:no passive smoke Alcohol Use Standard Drinks/Week Comments Yes 0 (1 standard drink = 0.6 oz pur e alcohol) a few drinks per year Hunger Vital Sign Answer Date Recorded Within the past 12 months, y ou worried that your food would run out before you got the money to buy more. Never true 11/24/19 23 Within the past 12 months, t he food you bought just didn't last and you didn't have money to get more. Never true 11/23/2022 Comments No Sex and Gender Information Value Date Recorded Sex Assigned at Female 06/03/2022 10:15 AM EDT Legal Sex Female 6:52 AM EST Gender Identity Female 06/03/2022 10:15 AM EDT Sexual Orientation Straight 06/03/2022 10 :15 AM EDT Occupation Industry Job Start Date Job End Date disabled Not on file Not on file Not on file documented as of this encounter Functional Status * Are you deaf or do you have serious difficulty hearing? Answer Date of Assessment Author No 04/11/2015 12:00 PM EDT Katlyn Banuelos NA * Are you blind or do you have serious difficulty seeing, even when wearing glasses? Answer Date of Assessment Author No 04/11/2015 12:00 PM EDT Katlyn Banuelos NA * Do you have serious difficulty walking or climbing stairs? (5 years old or older) Answer Date of Assessment Author No 04/11/2015 12:00 PM EDT Katlyn Banuelos NA * Do you have difficulty dressing or bathing? (5 years old or older) Answer Date of Assessment Author No 04/11/2015 12:00 PM EDT Banuelos , Katlyn L, NA * Because of a physical, mental, or emotional condition, do you have difficulty doing errands alone such as visiting a doctors office or shopping? (15 years old or older) Answer Date of Assessment Author Yes 04/11/2015 12:00 PM EDT Katlyn Banuelos NA documented as of this encounter Mental Status * Because of a physical, mental, or emotional condition, do you have serious difficulty concentrating, remembering, or making decisions? (5 years old or older) Answer Entry Date Author Yes 04/11/2015 12:00 PM EDT Katlyn Banuelos NA documented in this encounter Plan of Treatment Upcoming Encounters Date Type Department Care Team (Late st Contact Info) Description 06/08/2025 11:00 AM EST Office Visit Rheumatology [facility] [address] [place] [phone] Michael Schwartz MD [address] [place] [id number] Health Maintenance Due Date Last Done Comments Albumin/Creatinine Ratio 11/08/1971 DTap/Tdap Vaccines (1 - Tdap) 1972 Cologuard 1998 Fecal Occult Blood Test 1998 Sigmoidoscopy 1998 Depression Monitoring 11/06/2016 2015 Adult Wellness Visit 11/08/2019 CKD PHOS USE SMARTSET 84762 06/23/2022 06/23/2021, 0 09/07/2020 GFR 06/29/2023 12/27/2022, 11/03, 06/23/2021, Additional history exists Mammogram 10/10/2023 10/09/2022, 03/0 03/2023, 11/06/2017 CKD HGB USE SMARTSET 20904 11/23/202311/22, 06/23/2021, 09/07/2020, Additional history exists TSH 12/28/2023 12/27/2022, 02/01, 09/07/2020, Additional history exists COVID-19 Vaccine ( season) 2024 05/27/2022, 07/02/2021, 10/13/2020, Additional history exists Colonoscopy 11/30/2024 11/30/2014 Colorectal Cancer Screening 11/30/2024 DXA Scan 05/21/2025 05/21/2023, 02/06/2021 Lipid Panel 06/23/2026 06/23/2021, 02/11/2020, 03/06/2020, Additional history exists VITAMIN D LEVEL ONCE IN A LIFETIME-USE SMARTSET# [id number] Completed 08/20/2019, 08/06/2017, 05/12/2013 Zoster Vaccines Completed 08/15/2021, 12/02, 01/04/2015 Pneumococcal Vaccine: 50+ Years Completed 09/10/2022, 03/15/2019 Influenza Vaccine (FLU shot) Completed 08/2023, 05/27/2022, 04/18/2020, Additional history exists HPV (Gardasil) Vaccine Aged Out No lo nger eligible based on patient's age to complete this topic Hepatitis B Vaccine Aged Out No longe r eligible based on patient's age to complete this topic MENINGOCOCCAL (MENACTRA/MENVEO) Aged Out No longer eligible based on patient's age to complete this topic documented as of this encounter Medical Devices Not on filedocumented as of this encounter Care Teams Rn Med Surg Relationship Specialty Start Date End Date Rich Fortune MD [address] [place] [address] PCP - General Family Medicine 11/27/22 documented as of this encounter
--- OUTSIDE RECORDS SUMMARY | 2024-10-18 19:31 | External Medical Summary | Summary of Care ---
Author Name Unknown Organization [facility] Address [address] [place] [address] Phone [phone] Care Team Providers Care Ambulatory Services Representative Name Role Phone Rich Fortune MD Primary Care Provider [phone] Reason for Referral * Evaluate & Treat - Unlimited Visits (Within 10 days (routine)) - Pending Review Specialty Diagnoses / Procedures Referred By Ana t Referred To Contact Cardiovascular Medicine / Cardiology Diagnoses Orthostatic hypotension Elpidio Wallace MD [address] [place] [address] Phone: tel: fax: Referral ID Status Reason Start Date Expiration Date Visits Requested Visits Authorized [id number] Pending Review Specialty Services Required 09/06/2024 03/05/[phone] Question Answer Referral Priority Within 10 days (routine) Where should this appointment be scheduled? [facility] For which of the following conditions are you referring? Other Condition Not Listed Other Condition: orthostatic hypotension Encounter Details Date Type Department Care Team (Late st Contact Info) Description 09/07/2024 Orders Only [facility] [place] [address] [place] [address] Ext *DO NOT REMOVE THIS DEPARTMENT* [place] [id number] Request, External Referral Orthostatic hypotension* Allergies Active Allergy Reactions Criticality Noted Date Comments Antipyrine 10/28/2019 Other Reaction(s): Depression Cefuroxime 06/11/2005 Other Reaction(s): Unknown Cephalosporins Itching 01/22/2011 If scratching, everything puffs up Pregabalin Psych complications 08/31/2015 Depression Nsaids Psych complications 08/31/2015 Depression Penicillins Itching 01/22/2011 If scratching, everything puffs up Simvastatin 04/26/2010 Other Reaction(s): Weakness present Thiethylperazine 08/30/2004 Other Reaction(s): Anxiety documented as of this encounter (statuses as of 09/08/2024) Medications Coenzyme Q10 (COQ10) 200 MG CAPS [...] Tablet Chewable Take by mouth. Activ e [place] 3 1200 MG Oral Capsule Take by [...] MG/100ML Intravenous Solution (Reclast) Administer intravenously. 4 04/26/2 029 Active documented as of this encounter (statuses as of 09/08/2024) Active Problems Problem Noted Date Diagnosed Date [...] as of this encounter (statuses as of 09/08/2024) Resolved Problems Problem Noted Date Diagnosed Date Resolved Date Dyslipidemia, goal LDL below 70 07/13/2021 11/26/2022 HTN, goal below 130/80 07/13/202111/27 Prediabetes 05/14/2021 08/14/2023 Overview: Per Prediabetes protocol Essential hypertension with goal blood pressure less than 130/80 03/17/2019 11/26/2022 STAGES Research Study*[id number] 12/30/2018 02/15/2019 Overview (01/07/2019): [employer] [facility] [employer] ([employer]) - IRB# [id number] PI: Dr. Jackeline Mayo Study contact: Ronna Duncan, Cab Worker I - [id number] Hypersomnolence 10/13/2018 11/26/2022 Hypnagogic hallucinations 10/13/2018 Insomnia [...] as of this encounter (statuses as of 09/08/2024) Immunizations Name Administration Dates Next Due 01/09/2016, 6,2015, 016,07/11/2015,07/11/2015,04/11/2015,03/2015,08/09/2014,05/03/2014,01/31/2014 2014 COVID-19 mRNA, LNP-s, No Pre serve, 2-Dose Series (Pfizer) 07/02/2021,10/13/2020,09/16/2020 Covid-19, Mrna, Lnp-s, Pf, Bivalent, 30 Mcg, IM, 12 yrs and above (Pfizer) 05/27/2022 Seasonal Influenza, QUAD, wi th Preserv, [...] 12:00 PM EDT Katlyn Banuelos NA * Because of a physical, mental, [...] Care Team (Late st Contact Info) Description 01/21/2025 10:30 AM EDT Office Visit Cardiology, [facility] [address] [place] [id number] Alexa Oviedo PA-C [address] [place] [address] 06/08/2025 11:00 AM EST Office Visit Rheumatology [facility] [address] [place] [phone] Michael Schwartz MD [address] [place] [address] Scheduled Referrals Name Type Priority Associated Diagnoses Orde r Schedule CARDIOLOGY REFERRAL OP Referral Within 10 days (routine) Orthostatic hypotension Ordered: 09/07/2024 Health Maintenance Due Date Last Done Comments Albumin/Creatinine Ratio 11/08/1971 DTap/Tdap Vaccines (1 - Tdap) 1972 Cologuard 1998 Fecal Occult Blood Test 1998 Sigmoidoscopy 1998 Depression Monitoring 11/06/2016 2015 Adult Wellness Visit 11/08/2019 CKD PHOS USE SMARTSET [id number] 06/23/2022 06/23/2021, 0 09/07/2020 GFR 06/29/2023 12/27/2022, 11/03, 06/23/2021, Additional history exists Mammogram 10/10/2023 10/09/2022, 030 03/2023, 11/06/2017 CKD HGB USE SMARTSET 82631 11/23/202311/22, 06/23/2021, 09/07/2020, Additional history exists TSH 12/28/2023 12/27/2022, 02/01, 09/07/2020, Additional history exists COVID-19 Vaccine ( season) 2024 05/27/2022, 07/02/2021, 10/13/2020, Additional history exists Colonoscopy 11/30/2024 11/30/2014 Colorectal Cancer Screening 11/30/2024 DXA Scan 05/21/2025 05/21/2023, 02/06/2021 Lipid Panel 06/23/2026 06/23/2021, 0211/2020, 03/06/2020, Additional history exists VITAMIN D LEVEL ONCE IN A LIFETIME-USE SMARTSET# [id number] Completed 08/20/2019, 08/06/2017, 05/12/2013 Zoster Vaccines Completed [...] Not on filedocumented as of this encounter Visit Diagnoses Diagnosis Orthostatic hypotension- Primary documented in this encounter Care Teams Ambulatory Services Representative Relationship Specialty Start Date End Date Rich Fortune MD [address] [place] [address] PCP - General Family Medicine 11/27/22 documented as of this encounter
[2024-10-18] MEDS: MAGNESIUM HYDROXIDE SUSP 30 ML UDC PO SCH (20:08)
[2024-10-18] MEDS: metroNIDAZOLE 500 MG/100 ML BAG IV SCH (20:08)
[2024-10-18] MEDS ORDERED: diphenhydrAMINE Capsule 25 MG CAP PO PRN (21:24)
[2024-10-18] MEDS: PANTOprazole 40 MG TAB PO SCH (21:46)
[2024-10-18] MEDS: PRAVASTATIN SOD 20 MG TAB PO SCH (21:59)
[2024-10-18] MEDS: MILNACIPRAN HCL 50 MG PO SCH (23:00)
[2024-10-19] MEDS: LEVOTHYROXINE SODIUM 88 MCG TABLET PO SCH (05:58)
[2024-10-19] MEDS: CEFEPIME 2000MG 2,000 MG/20 ML SYR IV SCH (05:59)
[2024-10-19 07:21] LABS: Albumin Globulin Ratio 1.6 (0.9-2); Albumin Level 3.4 gm/dl (3.4-5.0); BUN Creatinine Ratio 16.1 (10-20); Bilirubin,Total 0.6 mg/dl (0.2-1.0); Calcium 7.5 mg/dl (8.6-10.3); Creatinine Clr Calc Pharmacy 77.8 ml/min; Globulin 2.1 gm/dl (2.5-4.0); Potassium 3.9 mmol/L (3.5-5.1); Total Protein 5.5 gm/dl (6.0-8.3)
[2024-10-19 07:37] LABS: Basophils # (auto) 0.04 K/uL (0.00-0.20); Basophils % (auto) 0.5 %; Eosinophils # (auto) 0.18 K/uL (0.00-0.50); Eosinophils % (auto) 2.3 %; Hematocrit (blood only) 37.8 % (37.0-47.0); Hemoglobin 12.4 g/dl (12.0-16.0); Immature Granulocytes # (auto) 0.02 K/uL (0.01-0.20); Immature Granulocytes % (auto) 0.3 %; Lymphocytes # (auto) 1.36 K/uL (1.20-3.40); Lymphocytes % (auto) 17.7 %; Mean Corpuscular Hgb Conc 32.8 g/dL (32.0-36.0); Mean Corpuscular Volume 88.5 fL (80.0-100.0); Mean Platelet Volume 8.8 fL (9.4-12.4); Monocytes # (auto) 0.56 K/uL (0.11-0.59); Monocytes % (auto) 7.3 %; Neutrophils # (auto) 5.54 K/uL (1.40-6.50); Neutrophils % (auto) 71.9 %; Platelet Count 241 K/uL (130-400); RDW Coefficient of Variation 14.4 % (11.5-14.5); RDW Standard Deviation 46.3 fL (36.4-46.3); Red Blood Count 4.27 M/uL (4.20-5.40)
[2024-10-19] MEDS: OMEGA-3 (PURIFIED FISH OIL) 1 GM CAP PO SCH (07:41)
[2024-10-19] MEDS: POLYETHYLENE (MIRALAX) 17 GM PACK PO SCH (08:38)
--- NOTE | 2024-10-19 10:01 | Hospitalist Progress Note ---
Date of Service October 19, 2024 Assessment & Plan (1) Abdominal pain: Plan Assessment/plan Patient is a 68-year-old female with past medical history of presented to the hospital with abdominal pain constipation and fever. Abdominal pain Possible early diverticulitis Possible UTI Constipation Acute kidney injury-resolved Patient presents with fever, abdominal pain and constipation for several days Leukocytosis present on admission- improved Lactate elevated on admission- resolved Creatinine elevated from baseline to 1.34, downtrended to baseline CT abdomen and pelvis did not show any acute finding, stool burden present Chest x-rayno acute finding Lipase within normal limits Continue on cefepime and Flagyl. Will follow-up on urine and blood culture Advance diet bowel regiment Antiemetics Pain control with Tylenol, as needed morphine Chronic conditions; Hypothyroidismcontinue levothyroxine Hyperlipidemia continue on pravastatin Fibromyalgia-follows with rheumatology; on Nikolas Morales Time spent evaluating patient, direct bedside care, chart review, placing orders, interpretation of diagnostic studies, discussion with consultants, patient, and family members, as well as other required patient management activities is 50 minutes Please note the above document was generated using voice recognition software. It may contain grammatical, syntax or spelling errors. Any formal questions or concerns about the content, text or information contained within the body of this dictation should be directly addressed to the provider for clarification Admission and Anticipated Discharge Date Admission Date: October 18, 2024 Subjective Patient seen and examined at bedside. Comfortable; not in distress. reports abdominal pain has improved Review of Systems Review of Systems: All systems reviewed & are unremarkable except as noted in Subjective Physical Exam Physical Exam: On physical examination; Constitutional: Awake alert oriented x 3; not in distress. Respiratory: Bilateral vesicular breath sound. Cardiovascular: RRR, no murmur, no edema Vessels: no JVD or carotid bruit Chest: normal inspection of chest Abdomen: soft, non-tender Musculoskeletal: no cyanosis or clubbing, extremities motor strength 5/5 Skin: no rashes, warm and dry normal turgor Neurologic: PERRL, EOMI, accommodation nl, no face palsy, no dysarthria CN's II- XI intact bilaterally and moves all extremities Psychiatric: A+Ox3, euthymic affect Results & Data Results & Data Vital Signs (Past 12 Hours) Vital Signs Temp Pulse Pulse Resp BP Pulse Ox O2 Del Method 10/19/24 07:45 36.7 C 85 16 151/72 H 96 Room Air 10/19/24 07:40 Room Air 10/19/24 07:00 90 10/19/24 03:28 36.9 C 80 18 104/59 L 95 Room Air 10/18/24 23:37 36.7 C 81 16 102/66 96 Room Air (1) Abdominal pain Abdominal location: generalized Qualified Code(s): R10.84 - Generalized abdominal pain
--- NOTE | 2024-10-19 14:58 | Electrocardiogram Report ---
Test Reason : Blood Pressure : */* mmHG Vent. Rate : 81 BPM Atrial Rate : 81 BPM P-R Int : 174 ms QRS Dur : 82 ms QT Int : 400 ms P-R-T Axes : 20 65 52 degrees QTcB Int : 464 ms Normal sinus rhythm Normal ECG When compared with ECG of 18-Oct-2024 12:42, (unconfirmed) Non-specific change in ST segment in Inferior leads Non-specific change in ST segment in Lateral leads T wave inversion no longer evident in Inferior leads Confirmed by Terrance Singh ([id number]) on 10/19/2024 2:58:34 PM Referred By: REFERRED SELF Confirmed By: Terrance Singh
[2024-10-19] MEDS: diphenhydrAMINE Capsule 25 MG CAP PO ONE (22:48)
[2024-10-20 04:07] VITALS: RESP 16
[2024-10-20 10:00] LABS: Basophils # (auto) 0.07 K/uL (0.00-0.20); Basophils % (auto) 0.8 %; Eosinophils # (auto) 0.18 K/uL (0.00-0.50); Hematocrit (blood only) 42.6 % (37.0-47.0); Hemoglobin 13.8 g/dl (12.0-16.0); Immature Granulocytes # (auto) 0.03 K/uL (0.01-0.20); Immature Granulocytes % (auto) 0.3 %; Lymphocytes # (auto) 2.09 K/uL (1.20-3.40); Lymphocytes % (auto) 23.2 %; Mean Corpuscular Hemoglobin 28.8 pg (25.0-34.0); Mean Corpuscular Hgb Conc 32.4 g/dL (32.0-36.0); Mean Corpuscular Volume 88.8 fL (80.0-100.0); Mean Platelet Volume 8.9 fL (9.4-12.4); Monocytes # (auto) 0.48 K/uL (0.11-0.59); Monocytes % (auto) 5.3 %; Neutrophils # (auto) 6.17 K/uL (1.40-6.50); Neutrophils % (auto) 68.4 %; Platelet Count 304 K/uL (130-400); RDW Coefficient of Variation 14.3 % (11.5-14.5); RDW Standard Deviation 46.3 fL (36.4-46.3); White Blood Count 9.02 K/ul (4.8-10.8)
--- NOTE | 2024-10-20 10:03 | Discharge Summary ---
Date of Service October 20, 2024 Admission HPI Per Admitting Provider History obtained from interview with the patient and chart review. Past medical history of hypothyroidism, dyslipidemia, class II obesity, CKD stage IIIa, migraine, fibromyalgia Patient presents to the hospital with abdominal pain. The abdomen pain is in right lower quadrant and lower abdomen. It is associated with intermittent fever and nausea.Tmax of 99 F at home Patient reports constipation for several days as well. Her last bowel movement was yesterday after she took a laxative. She denies dysuria, increased urgency, increased frequency, chest pain or shortness of breath On presentation to the ED, she was normotensive, afebrile and saturating well on room air. She was found to have elevated WBC and elevated creatinine. CT abdomen and pelvis shows signs of constipation; no other acute finding. Creatinine elevated to 1.34. Lactate elevated to 2.3. Urinalysis shows 2+ leukocytes esterase, increased WBC. Patient referred for admission and further workup. Admission Exam Per Admitting Provider Constitutional: Awake alert oriented x 3; not in distress. Respiratory: Bilateral vesicular breath sound. Cardiovascular: RRR, no murmur, no edema Vessels: no JVD or carotid bruit Chest: normal inspection of chest Abdomen: Tenderness present in suprapubic region and right lower quadrant. Musculoskeletal: no cyanosis or clubbing, extremities motor strength 5/5 Skin: no rashes, warm and dry normal turgor Neurologic: PERRL, EOMI, accommodation nl, no face palsy, no dysarthria CN's II- XI intact bilaterally and moves all extremities Psychiatric: A+Ox3, euthymic affect Principal Diagnosis Abdominal pain Possible early diverticulitis Possible UTI Constipation Acute kidney injury-resolved Discharge Exam On physical examination; Constitutional: Awake alert oriented x 3; not in distress. Respiratory: Bilateral vesicular breath sound. Cardiovascular: RRR, no murmur, no edema Vessels: no JVD or carotid bruit Chest: normal inspection of chest Abdomen: soft, non-tender Musculoskeletal: no cyanosis or clubbing, extremities motor strength 5/5 Skin: no rashes, warm and dry normal turgor Neurologic: PERRL, EOMI, accommodation nl, no face palsy, no dysarthria CN's II- XI intact bilaterally and moves all extremities Psychiatric: A+Ox3, euthymic affect Discharge Data Allergies Allergy/AdvReac Type Severity Reaction Status Date / Time Cephalosporins Allergy Severe RASH & Verified 10/18/24 22:45 swelling all over cefuroxime Allergy Unknown CAN'T Verified 10/18/24 22:45 REMEMBER--ON [facility] MED LIST Penicillins Allergy Unknown RASH & Verified 10/18/24 22:45 swelling all over antipyrine AdvReac Intermediate Depression Verified 10/18/24 22:45 NSAIDS (Non-Steroidal AdvReac Intermediate Depression Verified 10/18/24 22:45 Anti-Inflamma pregabalin AdvReac Intermediate DEPRESSION Verified 10/18/24 22:45 simvastatin AdvReac Intermediate Weakness Verified 10/18/24 22:45 thiethylperazine AdvReac Intermediate Depression Verified 10/18/24 22:45 Consultations 10/18/24 19:17 ED Decision to Admit Stat Ordered Studies 10/18/24 14:13 CT abd pelvis wo con Stat Hospital Course (1) Abdominal pain: Plan Assessment/plan Patient is a 68-year-old female with past medical history of presented to the hospital with abdominal pain constipation and fever. Abdominal pain Possible early diverticulitis Possible UTI Constipation Acute kidney injury-resolved Patient presents with fever, abdominal pain and constipation for several days Leukocytosis present on admission- improved Lactate elevated on admission- resolved Creatinine elevated from baseline to 1.34, downtrended to baseline CT abdomen and pelvis did not show any acute finding, stool burden present Chest x-rayno acute finding Lipase within normal limits During the hospitalization, patient was admitted to telemetry floor. She was started on antibiotic, IV fluids, laxatives which resulted in gradual improvement in abdominal pain. She remained afebrile throughout the hospitalization and was tolerating normal diet at the time of the discharge. Urine culture and blood culture was negative. Given patient's clinical presentation of abdominal pain and fever; she was prescribed antibiotic for 3 more days to complete the course. Patient to follow-up with PCP after discharge. Please note the above document was generated using voice recognition software. It may contain grammatical, syntax or spelling errors. Any formal questions or concerns about the content, text or information contained within the body of this dictation should be directly addressed to the provider for clarification Total Time Total Time Spent Total Time Spent (In Minutes): 45 Total Time Includes: Examination of the Patient, Discharge Planning, Medication Reconciliation, Communication With Other Providers and Other Discharge Plan Discharge Items Patient Disposition: Home - Self-Care Reason For Visit: ABDOMINAL PAIN Discharge Diagnosis: Abdominal pain Possible early diverticulitis Possible UTI Constipation Acute kidney injury-resolved Condition on Discharge: Good Activity: Resume your previous activity Non-emergency contact: Primary Care Provider Call non-emergency contact if: you have any medication questions and your symptoms worsen Follow-up/Referrals: Elpidio Wallace MD [Primary Care Provider] - (The office will call you with a follow up appointment.) Diet: Regular Addtl Attending Provider Instructions: You were admitted to the hospital with abdominal pain. The likely cause for the abdominal pain is thought secondary to constipation, possible UTI or diverticulitis. You are treated with antibiotics during the hospitalization along with IV fluids. You are prescribed following antibiotics to complete the antibiotic course; Take ciprofloxacin 500 mg twice daily for 3 days Take metronidazole 500 mg 3 times daily for 3 days Please take probiotics while you are on the antibiotics. It can be obtained [id number]. As for the constipation, you can take MiraLAX or milk of magnesia daily. Follow-up with your primary care doctor. Pending Studies at Discharge: No Stand-Alone Forms: My [facility] My-Apps, Smoking Cessation Medications and DC Order Prescriptions: New ciprofloxacin HCl 500 mg tablet 500 mg PO BID 3 Days Qty: 6 0RF metronidazole 500 mg tablet 500 mg PO Q8H 3 Days Qty: 9 0RF Continued Trulance 3 mg tablet 3 mg PO DAILY Qty: 90 3RF pantoprazole 40 mg tablet,delayed release (DR/EC) 40 mg PO BID Qty: 180 1RF ondansetron HCl 4 mg tablet 4 mg PO Q8H PRN (Reason: n/v) zoledronic [id number] [Reclast] 5 mg/100 mL piggyback 1 ea IV UD Rx Instructions: LAST TAKEN OCTOBER 2024 Savella 50 mg tablet 50 mg PO BID coenzyme Q10 100 mg Tablet 200 mg PO QAM pravastatin 20 mg Tablet 20 mg PO QPM Medical Marijuana 1 ea inhalation DIRECTED PRN (Reason: Headache) diphenhydramine HCl [Benadryl] 25 mg Capsule 25 mg PO TID PRN (Reason: Allergy Symptoms) omega 0-opy-kgx-fish oil [Fish Oil] 1,000 mg (120 mg-180 mg) Capsule 1 cap PO QAM Women's 50 Plus Multivitamin 400 mcg-500 mg calcium-20 mcg Tablet 1 tab PO QAM Zepbound 10 mg/0.5 mL Pen Injector 10 mg SUBCUT WK Rx Instructions: THURSDAYS Ajovy Autoinjector 225 mg/1.5 mL auto-injector 225 mg SUBCUT .[id number] Nurtec ODT 75 mg Tablet,Disintegrating 75 mg PO DIRECTED PRN (Reason: HEADACHES) levothyroxine 100 mcg Tablet 100 mcg PO 2XWK Rx Instructions: TAKES FRIDAY AND FRIDAY levothyroxine 88 mcg Tablet 88 mcg PO 5XWK Rx Instructions: TAKES FRIDAY THROUGH FRIDAY Discharge Orders: Discharge Order (Routine); Ordered 10/20/24 Ordered By: Parker Panchal Admission Data Admit Date/Time: 10/18/24 19:10 Attending Provider: Parker Panchal Admit Provider: Parker Panchal Primary Care Provider: Elpidio Wallace Other Providers: Parker Panchal Other Interventions: Discharge Summary Assessment (RN) Last Done: 10/20/24 13:11
[2024-10-20 10:39] LABS: Albumin Globulin Ratio 1.5 (0.9-2); Albumin Level 4.1 gm/dl (3.4-5.0); BUN Creatinine Ratio 13.1 (10-20); Bilirubin,Total 0.4 mg/dl (0.2-1.0); Calcium 8.2 mg/dl (8.6-10.3); Creatinine Clr Calc Pharmacy 80.6 ml/min; Globulin 2.7 gm/dl (2.5-4.0); Potassium 3.8 mmol/L (3.5-5.1); Total Protein 6.8 gm/dl (6.0-8.3)
[2024-10-20 13:25] VITALS: BP 144/80; TEMP 99; O2SAT 96
[2024-10-20 13:31] VITALS: PULSE 87
--- NOTE | 2024-10-21 17:46 | Electrocardiogram Report ---
Test Reason : Blood Pressure : */* mmHG Vent. Rate : 111 BPM Atrial Rate : 111 BPM P-R Int : 166 ms QRS Dur : 82 ms QT Int : 322 ms P-R-T Axes : 53 58 -48 degrees QTcB Int : 437 ms Sinus tachycardia Abnormal ECG When compared with ECG of 15-Aug-2017 15:45, T wave inversion more evident in Inferior leads Confirmed by Terrance Singh ([id number]) on 10/21/2024 5:46:02 PM Referred By: REFERRED SELF Confirmed By: Terrance Singh
[2024-10-23] MEDS ORDERED: LEVOTHYROXINE SODIUM 100 MCG TABLET PO SCH (06:30)
== END 2024-10-20 13:48 | disposition home or self-care (01) | DRG 392 ==
LOC: ED 12:03 → 2W 19:10